=== PATIENT | female | born 1945 | race Caucasian/White ===

== ENCOUNTER → 2017-04-19 15:24 | Outpatient (CLI) | payer MEDICARE, OTHER, SELFPAY ==
--- NOTE | 2017-04-19 15:35 | RAD_ITS ---
STUDY: X-RAY - LUMBOSACRAL SPINE REASON FOR EXAM: Female, 71 years old. Low back pain TECHNIQUE: 8 view(s) of the lumbosacral spine were obtained. COMPARISON: None FINDINGS: Normal lumbar lordosis. There is a mild levoscoliosis. There is limited flexion and extension. Moderate degenerative changes of the vertebral bodies with mild spurring at the endplates. Slightly depressed superior endplate of L1. Narrowed disc space heights with vacuum phenomenon. Normal bilateral sacral ala, sacroiliac joints, and visualized sacrum. Normal visualized soft tissue structures. RAD/L/S Spine w Bend Min 6 Vw IMPRESSION: Degenerative changes and scoliosis of the lumbosacral spine. Electronically Signed: Bryan Gaona DO at 22:23 EST Tel [phone], Service support ,
== END ==
PROVIDERS: Family Provider Family Medicine Geriatric Medicine; PCP Family Medicine Geriatric Medicine; Visit Provider Family Medicine Geriatric Medicine
DX: M54.5 Low back pain (principal); M41.86 Other forms of scoliosis, lumbar region; M51.36 Other intervertebral disc degeneration, lumbar region
CPT/HCPCS: 72114

== ENCOUNTER → 2017-05-30 15:13 | Outpatient (CLI) | payer MEDICARE, OTHER, SELFPAY ==
--- NOTE | 2017-05-30 15:25 | BI_ITS ---
MAMMOGRAPHY - BILATERAL SCREENING REASON FOR EXAM: Female, 71 years old. Routine annual screening examination. PERTINENT HISTORY: Personal history of breast cancer. Prior left lumpectomy with radiation therapy. Sister with breast cancer. Pain at the lumpectomy site warm to touch. TECHNIQUE: Digital bilateral breast sushila (3D mammographic acquisition) in the CC and MLO projections. 2-D mediolateral oblique (MLO) and craniocaudad (CC) views of both breasts were obtained. CAD: Full Field Digital Mammography with Computer Added Detection was performed. COMPARISON: Comparison is made with prior examination dated January 17, 2015 and April 08, 2016. FINDINGS: Breast Composition: There are scattered areas of fibroglandular density. Once again, the patient is status post lumpectomy in the inferior deep portion of the left breast. There is evidence of postoperative architectural distortion and dystrophic calcifications at the lumpectomy site. At this time however, there appears to be increased density in the surrounding breast tissue at the lumpectomy site. With the patient's history of warmth and redness at that site, correlation with ultrasound is recommended to rule out possible infection. Surgical clips are also seen in the left axillary region. Stable appearance of the axillary lymph nodes. No other significant abnormalities are identified. BI/SCREENING MAMM (CAD), BILAT IMPRESSION: Status post left lumpectomy with resultant deformity of the breast and postoperative scarring. In the region of the lumpectomy site, there is increased markings within the surrounding breast tissue as described. Correlation with ultrasound is recommended. ASSESSMENT CATEGORY: BIRADS Category 0: Incomplete. Need additional imaging evaluation. A letter regarding these results will be sent to the patient by the facility within 30 days. Approximately 10% of breast cancers are not detected by mammography. A normal mammogram should not delay biopsy of a clinically suspicious abnormality. [id number] Electronically Signed: Elio Menard MD at 8:41 EDT Tel [phone], Service support ,
== END ==
PROVIDERS: Family Provider Family Medicine Geriatric Medicine; PCP Family Medicine Geriatric Medicine; Visit Provider Family Medicine Geriatric Medicine
DX: Z12.31 Encounter for screening mammogram for malignant neoplasm of breast (principal)
CPT/HCPCS: 77063; 77067

== ENCOUNTER → 2017-06-01 10:42 | Outpatient (CLI) | payer MEDICARE, OTHER, SELFPAY ==
--- NOTE | 2017-06-01 10:45 | US_ITS ---
STUDY: ULTRASOUND BREAST - LEFT REASON FOR EXAM: Female, 71 years old. Abnormal screening mammogram. Pain at the lumpectomy site. TECHNIQUE: Axial and longitudinal images of the LEFT breast were performed with a high resolution ultrasound transducer. COMPARISON: Comparison is made with prior mammogram dated May 30, 2017. FINDINGS: LEFT Breast: The inferior half of the breast was examined. There is a 2.5 cm x 2.8 cm x 2 cm heterogeneous soft tissue density at the lumpectomy site corresponding to the palpable abnormality. Adjacent to this, there is a 1.4 cm x 1.2 cm x 1 cm ill-defined nodular density. A biopsy is recommended for further evaluation. US/Breast Limited Unilateral IMPRESSION: Suspicious appearance of the lumpectomy site as well as a adjacent hypoechoic nodular region. Biopsy is recommended for further evaluation. ASSESSMENT CATEGORY: BIRADS Category 4: Suspicious - Biopsy Should Be Considered. A letter regarding these results will be sent to the patient by the facility within 30 days. Electronically Signed: Elio Menard MD at 14:29 EDT Tel [phone], Service support ,
== END ==
PROVIDERS: Family Provider Family Medicine Geriatric Medicine; PCP Family Medicine Geriatric Medicine; Visit Provider Family Medicine Geriatric Medicine
DX: N64.89 Other specified disorders of breast (principal)
CPT/HCPCS: 76642

== ENCOUNTER → 2017-06-18 09:45 | Outpatient (CLI) | payer MEDICARE, OTHER, SELFPAY ==
--- NOTE | 2017-06-18 09:45 | BRBX_PTH ---
PATIENT: IRLANDA LANDA LOC: [facility] U#:[id number] AGE/SX: 79/F ROOM: RE06/18/[address]: Dr. Pieter Alvarez MD : 1945 BED: DIS: SPEC #: [id number] RECD: 06/20/17 07:13 STATUS: BRIT GRACY #: [id number] PAULA: 06/18/17 09:[address]: Pieter Alvarez DEPT: SURGICAL PATHOLOGY RECD BY: Marcos Starkey ENTERED: 06/20/17 12:15 SP TYPE: BREAST BX OTHR DR: Dr. Jomar Tinajero MD Tissues: Breast, NOS Procedures: Surgery Specimen Level IV HEADER OPERATION: Left breast biopsy PRE-OP DIAGNOSIS: Left breast lump TISSUE SUBMITTED: Left breast tissue ISCHEMIC TIME: 1 minute FIXATION TIME: 57.5 hours MICROSCOPIC DIAGNOSIS Left breast tissue, core biopsy: Fragments of fibroadipose tissue with focal fat necrosis, chronic inflammation and dense fibrosis. Negative for atypia or malignancy. Breast tissue is not identified in the submitted specimen. 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 Clinical correlation and appropriate follow up are necessary. MICROSCOPIC DESCRIPTION Slides are reviewed. GROSS DESCRIPTION Received in fixative is one container labeled with the patient's name and designated left breast. The specimen consists of multiple elongated fragments of osuna-yellow fibroadipose tissue that in aggregate measure 1.5 x 0.6 x 0.1 cm. The entire specimen is submitted in one cassette. / SILVESTRE:franchesca 06/20/17 TC:5 CPT: 00041
== END ==
PROVIDERS: Family Provider Family Medicine Geriatric Medicine; PCP Family Medicine Geriatric Medicine; Visit Provider Surgery
DX: N63.0 Unspecified lump in unspecified breast (principal)
CPT/HCPCS: 88305

== ENCOUNTER → 2017-07-07 16:01 | Outpatient (CLI) | payer MEDICARE, OTHER, SELFPAY ==
[2017-07-07 16:54] LABS: Absolute Lymphocyte Count 1.87 X10^3/ul (0.83-4.51); Absolute Neutrophil Count 4.8 X10^3/uL (2.0-7.7); Basophil# 0.01 X10^3/uL; Basophil% 0.1 % (0-1); Eosinophil# 0.02 X10^3/uL; Eosinophils% 0.3 % (0-5); Hematocrit 39.4 % (37-47); Hemoglobin 12.5 g/dl (12.0-15.0); Lymphocyte # 1.87 X10^3/ul (4.0); Mean Corp Hgb Conc 31.7 g/gl (32-36); Mean Corpuscular Volume 91.4 fL (81-99); Mean Platelet Vol. 9.4 fl (6.2-12.0); Monocyte# 0.48 X10^3/uL; Monocyte% 6.7 % (0-10); Neutrophil # 4.81 X10^3/uL (2.7-7.7); Neutrophil % 66.8 % (47-70); POSITIVE COUNT NO; POSITIVE DIFFERENTIAL NO; POSITIVE MORPHOLOGY NO; Platelet Count 270 K/mm3 (150-450); RBC Distribution Width CV 13.6 % (11.6-14.6); RBC Distribution Width SD 45.1 fl (35.1-43.9); Red Blood Count 4.31 M/mm3 (4.2-5.4); White Blood Count 7.2 K/mm3 (4.4-11.0)
[2017-07-07 17:26] LABS: AST(SGOT) 15 U/L (15-37); Alanine Aminotransfer ALT/SGPT 20 U/L (13-56); Albumin, Serum 3.8 g/dL (3.2-5.0); Alkaline Phosphatase 90 U/L (45-117); Anion Gap 9 (5-15); BUN 21 mg/dL (7-18); BUN/Creat Ratio 26.7 RATIO (10-20); Calcium,Total 9.3 mg/dL (8.5-10.1); Chloride 102 mmol/L (98-107); Creatinine, Serum 0.79 mg/dL (0.55-1.02); EST Glomerular Filtration Rate 77 mL/min (>60); Est Glom Filt Rate - Afr Amer 93 mL/min (>60); Globulin 3.9 g/dL (2.2-4.2); Glucose 92 mg/dL (74-106); Potassium 3.4 mmol/L (3.5-5.1); Protein, Total 7.7 g/dL (6.4-8.2); Sodium Level 142 mmol/L (136-145); Thyroid Stim Hormone (TSH) 0.73 uIU/mL (0.358-3.74)
[2017-07-08 10:16] LABS: Vitamin D,25 Hydroxy 38.8 ng/mL (29.95-100.01)
[2017-07-11 10:04] LABS: Hep C Antibodies <0.1 s/co ratio (0.0-0.9)
== END ==
PROVIDERS: Family Provider Family Medicine Geriatric Medicine; PCP Family Medicine Geriatric Medicine; Visit Provider Family Medicine Geriatric Medicine
DX: Z13.89 Encounter for screening for other disorder (principal); E55.9 Vitamin D deficiency, unspecified; I10 Essential (primary) hypertension
CPT/HCPCS: 36415; 80053; 82306; 84443; 85025; 86803

== ENCOUNTER → 2017-07-08 10:04 | Outpatient (CLI) | payer MEDICARE, OTHER, SELFPAY | PROVIDERS: Family Provider Family Medicine Geriatric Medicine; PCP Family Medicine Geriatric Medicine; Visit Provider Family Medicine Geriatric Medicine | DX: N39.0 Urinary tract infection, site not specified (principal) | CPT/HCPCS: 87086; 87088 ==

== ENCOUNTER → 2017-08-02 16:29 | Outpatient (CLI) | payer MEDICARE, OTHER, SELFPAY ==
[2017-08-02 17:12] LABS: Erythrocyte Sedimentation Rate 25 mm/hr (0-30)
[2017-08-05 11:23] LABS: ANTINUCLEAR ANTIBODIES DIRECT Negative (Negative)
== END ==
PROVIDERS: Family Provider Family Medicine Geriatric Medicine; PCP Family Medicine Geriatric Medicine; Visit Provider Family Medicine Geriatric Medicine
DX: M10.9 Gout, unspecified (principal); M25.50 Pain in unspecified joint
CPT/HCPCS: 36415; 85652; 86038

== ENCOUNTER → 2017-08-25 16:46 | Outpatient (CLI) | payer MEDICARE, OTHER, SELFPAY ==
--- NOTE | 2017-08-25 16:50 | RAD_ITS ---
STUDY: X-RAY - LUMBAR SPINE REASON FOR EXAM: Female, 72 years old. Lower back pain. TECHNIQUE: 5 view(s) of the lumbar spine were obtained. COMPARISON: None FINDINGS: There is straightening of the normal lumbar lordosis. There is a minimal levoscoliosis with convexity at L2. There is a normal alignment of the vertebrae. There is multilevel endplate spondylosis of the lumbar vertebrae. There is multi-level degenerative disc disease with multi-level disc space narrowing. There is no evidence of acute fracture or loss of vertebral axial height. There is no demonstrated spondylolysis of the pars interarticulares. The soft tissue structures are unremarkable. RAD/L/S Spine Min 4 Views IMPRESSION: Degenerative changes of the spine, as detailed above. There is straightening of the lumbar lordosis. Electronically Signed: Doug Ortega DO at 23:08 EDT Tel [phone], Service support ,
== END ==
PROVIDERS: Family Provider Family Medicine Geriatric Medicine; PCP Family Medicine Geriatric Medicine; Visit Provider Nurse Practitioner Family
DX: M47.896 Other spondylosis, lumbar region (principal); M51.36 Other intervertebral disc degeneration, lumbar region; M48.061 Spinal stenosis, lumbar region without neurogenic claudication
CPT/HCPCS: 72110

== ENCOUNTER 2017-11-29 14:47 | Outpatient (RCR) | payer MEDICARE, OTHER, SELFPAY ==
--- NOTE | 2018-05-18 16:49 | HP.PT.NRP ---
HP - Discharge Summary (1) - Patient Information IRLANDA LANDA was seen in my office for initial evaluation on 11/29/17. The following Plan of Care was established for this patient: Initial Frequency: 2x /Week Initial Duration: 4 Weeks - Anticipated Interventions Patient/Client Instruction: Educate patient on: Benefits of Fitness Program For the Purpose of:: To improve nutrient delivery to tissue Therapeutic Exercise to Include: Strength training, Power training, Endurance training, Balance training, Coordination, Body mechanics, Flexibilty training, Gait and locomotor training, In an aquatic setting, Active ROM, Dynamic Lumbar Stabilization For the Purpose of:: To decrease pain, To increase ROM, To improve muscle performance and motor function, To improve ability to perform ADL's, To increase tolerance to activity/condition/position, To improve performance and independence with ADL's, To improve gait and locomotor functions, To improve endurance, To improve balance, To improve safety with gait Cryotherapy (ice pack, ice massage): Yes Thermo therapy (hot pack): Yes For the Purpose of:: To decrease pain This patient was last seen in our office . Pertinent comments regarding their Physical therapy will appear below: Patient has not attended PT in over 3 months and is appropriate for d/c at this time. Return to MD for further evaluation. At this point I will be discontinuing this patient from physical therapy. I would be happy to see this patient again in the future if found appropriate by the physician. Thank you! YULI LlamasT
== END 2017-11-29 19:00 | disposition home or self-care (01) ==
LOC: PT 14:47
PROVIDERS: Family Provider Internal Medicine; PCP Internal Medicine; Referring Provider Anesthesiology Pain Medicine; Visit Provider Anesthesiology Pain Medicine
DX: M54.9 Dorsalgia, unspecified (principal)
CPT/HCPCS: 97162

== ENCOUNTER → 2017-12-05 13:28 | Outpatient (CLI) | payer MEDICARE, OTHER, SELFPAY ==
--- NOTE | 2017-12-05 13:30 | US_ITS ---
STUDY: ULTRASOUND BREAST - LEFT REASON FOR EXAM: Female, 72 years old. Status post left lumpectomy with abnormal mammographic findings. TECHNIQUE: Axial and longitudinal images of the LEFT breast were performed with a high resolution ultrasound transducer. COMPARISON: Comparison is made with prior mammogram done earlier today and prior ultrasound of the left breast dated June 01, 2017. FINDINGS: LEFT Breast: The inferior half of the left breast was examined by ultrasound. There is a 2.8 cm x 2.7 cm x 2.5 cm heterogeneous soft tissue density at the 6:00 position of the breast at 3 cm from nipple. This corresponds to the mammographic abnormality. This is essentially unchanged. At the 8:00 position in the breast at 6 on the some nipple, there is a 1.3 cm Bard 1.1 cm x 0.8 cm hypoechoic density with posterior acoustical shadowing. A biopsy is recommended for further evaluation. This is unchanged. US/Breast Limited Unilateral IMPRESSION: Stable sonographic examination as compared to prior study. A biopsy is recommended for further evaluation. ASSESSMENT CATEGORY: BIRADS Category 4: Suspicious - Biopsy Should Be Considered. A letter regarding these results will be sent to the patient by the facility within 30 days. Electronically Signed: Elio Menard MD at 9:07 EDT Tel [phone], Service support ,
--- NOTE | 2017-12-05 13:41 | BI_ITS ---
MAMMOGRAPHY - UNILATERAL DIAGNOSTIC: LEFT BREAST REASON FOR EXAM: Female, 72 years old. Prior left lumpectomy and left stereotactic breast biopsy. Pain and palpable abnormality and warm to touch at the lumpectomy site. PERTINENT HISTORY: Personal history of breast cancer. TECHNIQUE: Digital unilateral breast sushila (3D mammographic acquisition) in the CC and MLO projections. 2-D mediolateral oblique (MLO) and craniocaudad (CC) views of both breasts were obtained. CAD: Full Field Digital Mammography with Computer Added Detection was performed. COMPARISON: Comparison is made with prior study dated May 30, 2017 and April 08, 2016. FINDINGS: Breast Composition: There are scattered areas of fibroglandular density. Once again, there is a 3.1 cm x 1.7 cm spiculated density in the deep inferior portion of the left breast. No calcifications are seen within it most likely representing suture calcifications. Tissue clip marker is also seen along the anterior aspect of this soft tissue density. There has been essentially no change since prior study. No other significant abnormalities are identified. There has been no significant change since the prior study. BI/DIAG MAMM W/CAD, UNILAT IMPRESSION: Stable unilateral diagnostic mammogram. Correlation with ultrasound of the left breast is recommended for further evaluation. ASSESSMENT CATEGORY: BIRADS Category 0: Incomplete. Need additional imaging evaluation. A letter regarding these results will be sent to the patient by the facility within 30 days. Approximately 10% of breast cancers are not detected by mammography. A normal mammogram should not delay biopsy of a clinically suspicious abnormality. Electronically Signed: Elio Menard MD at 12:08 EDT Tel [phone], Service support ,
== END ==
PROVIDERS: Family Provider Internal Medicine; PCP Internal Medicine; Visit Provider Surgery
DX: N63.20 Unspecified lump in the left breast, unspecified quadrant (principal); Z85.3 Personal history of malignant neoplasm of breast
CPT/HCPCS: 76642; 77061; 77065; G0279

== ENCOUNTER → 2017-12-24 10:30 | Outpatient (CLI) | payer MEDICARE, OTHER, SELFPAY ==
--- NOTE | 2017-12-24 | BRBX_PTH ---
PATIENT: IRLANDA LANDA LOC: [facility] U#:[id number] AGE/SX: 79/F ROOM: RE12/24/[address]: Dr. Pieter Alvarez MD : 1945 BED: DIS: SPEC #: [id number] RECD: 12/26/17 14:43 STATUS: BRIT GRACY #: [id number] PAULA: 12/24/17 00:[address]: Pieter Alvarez DEPT: SURGICAL PATHOLOGY RECD BY: Jeffrey Mcnamara ENTERED: 12/26/17 14:44 SP TYPE: BREAST BX OTHR DR: Dr. Radha Velarde MD Tissues: Left breast, NOS Procedures: Surgery Specimen Level IV HEADER OPERATION: Left breast biopsy PRE-OP DIAGNOSIS: Abnormal breast US, left TISSUE SUBMITTED: Left breast tissue ISCHEMIC TIME: 1 minute FIXATION TIME: 8 hours MICROSCOPIC DIAGNOSIS Left breast, core biopsy: Fragments of adipose tissue with focal dense fibrosis. Negative for malignancy. Breast tissue is not identified in the submitted specimen. SILVESTRE:brittany 12/27/17 COMMENT Correlation with clinical, radiologic findings and appropriate follow up are necessary. 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 MICROSCOPIC DESCRIPTION Slides are reviewed. GROSS DESCRIPTION Received is one container labeled with the patient name and designated left breast. The specimen consists of multiple elongated fragments of osuna-yellow fibroadipose tissue that in aggregate measure 2 x 0.5 x 0.1 cm. The specimen is totally submitted in one cassette. / SILVESTRE:brittany 12/26/17 TC: 5 CPT:14772
== END ==
PROVIDERS: Family Provider Internal Medicine; PCP Internal Medicine; Referring Provider Surgery; Visit Provider Surgery
DX: R92.8 Other abnormal and inconclusive findings on diagnostic imaging of breast (principal)
CPT/HCPCS: 88305

== ENCOUNTER → 2018-06-16 13:50 | Outpatient (CLI) | payer MEDICARE, OTHER, SELFPAY ==
--- NOTE | 2018-06-16 13:55 | BI_ITS ---
MAMMOGRAPHY - BILATERAL DIAGNOSTIC REASON FOR EXAM: Female, 72 years old. Left lumpectomy in 2001 with radiation and tamoxifen therapy. PERTINENT HISTORY: Personal history of breast malignancy. TECHNIQUE: Digital examination. Mediolateral oblique (MLO) and craniocaudad (CC) views of both breasts were obtained. CAD: CAD was performed on this study. COMPARISON: April 08, 2016. FINDINGS: Breast Composition: There are scattered areas of fibroglandular density. The patient is status post deep central left lumpectomy and left axillary geno dissection. There is incompletely imaged dense focal asymmetry within the central deep left breast with associated architectural distortion, biopsy clips and dystrophic appearing calcifications. These findings appear stable when considering differences in technique and most likely represent fibrosis/scarring from prior surgery and therapy. However, the deep extent of these findings is not identified on either the current or comparison images. Recommend further evaluation with limited and directed pre and post contrast anterior chest CT to the determine and evaluate the deep extent of the presumed scar and to evaluate for active soft tissue and osseous anterior chest wall involvement. The right breast appears without evidence of malignancy. BI/Bilat Brst Izaiah Stand Alone IMPRESSION: Negative stable diagnostic mammogram. ASSESSMENT CATEGORY: BIRADS Category 0: Incomplete. Need additional imaging evaluation. A letter regarding these results will be sent to the patient by the facility within 30 days. FOLLOW UP RECOMMENDATION: Additional Views are Recommended. (E) Approximately 10% of breast cancers are not detected by mammography. A normal mammogram should not delay biopsy of a clinically suspicious abnormality. Recommendation: The deep extent of the presumed postsurgical and posttherapy scar in the left breast is not identified on either the current or comparison images. Recommend further evaluation with limited and directed pre and post contrast anterior chest CT to the determine and evaluate the deep extent of the presumed scar and to evaluate for active soft tissue and osseous anterior chest wall involvement. Electronically Signed: Judson Romero MD at 7:51 EDT , Service support ,
--- NOTE | 2018-06-16 13:55 | BI_ITS ---
MAMMOGRAPHY - BILATERAL DIAGNOSTIC REASON FOR EXAM: Female, 72 years old. Left lumpectomy in 2001 with radiation and tamoxifen therapy. PERTINENT HISTORY: Personal history of breast malignancy. TECHNIQUE: Digital examination. Mediolateral oblique (MLO) and craniocaudad (CC) views of both breasts were obtained. CAD: CAD was performed on this study. COMPARISON: April 08, 2016. FINDINGS: Breast Composition: There are scattered areas of fibroglandular density. The patient is status post deep central left lumpectomy and left axillary geno dissection. There is incompletely imaged dense focal asymmetry within the central deep left breast with associated architectural distortion, biopsy clips and dystrophic appearing calcifications. These findings appear stable when considering differences in technique and most likely represent fibrosis/scarring from prior surgery and therapy. However, the deep extent of these findings is not identified on either the current or comparison images. Recommend further evaluation with limited and directed pre and post contrast anterior chest CT to the determine and evaluate the deep extent of the presumed scar and to evaluate for active soft tissue and osseous anterior chest wall involvement. The right breast appears without evidence of malignancy. BI/DIAG MAMM W/CAD, BILAT IMPRESSION: Negative stable diagnostic mammogram. ASSESSMENT CATEGORY: BIRADS Category 0: Incomplete. Need additional imaging evaluation. A letter regarding these results will be sent to the patient by the facility within 30 days. FOLLOW UP RECOMMENDATION: Additional Views are Recommended. (E) Approximately 10% of breast cancers are not detected by mammography. A normal mammogram should not delay biopsy of a clinically suspicious abnormality. Recommendation: The deep extent of the presumed postsurgical and posttherapy scar in the left breast is not identified on either the current or comparison images. Recommend further evaluation with limited and directed pre and post contrast anterior chest CT to the determine and evaluate the deep extent of the presumed scar and to evaluate for active soft tissue and osseous anterior chest wall involvement. Electronically Signed: Judson Romero MD at 7:51 EDT , Service support ,
== END ==
PROVIDERS: Family Provider Internal Medicine; PCP Internal Medicine; Referring Provider Surgery; Visit Provider Surgery
DX: R92.8 Other abnormal and inconclusive findings on diagnostic imaging of breast (principal); Z85.3 Personal history of malignant neoplasm of breast
CPT/HCPCS: 77062; 77066; G0279

== ENCOUNTER → 2018-07-07 16:52 | Outpatient (CLI) | payer MEDICARE, OTHER, SELFPAY ==
[2018-06-27 14:28] VITALS: BMI 33.7
--- NOTE | 2018-07-07 16:55 | CT_ITS ---
STUDY: CT CHEST WITH CONTRAST REASON FOR EXAM: Female, 72 years old. History of left breast cancer RADIATION DOSAGE (If Supplied By Facility): CTDIvol = ( 13.76 ) mGy, DLP = ( 711.38 ) mGycm TECHNIQUE: Transaxial imaging was performed following intravenous administration of 100 IV Isovue 300. Multiplanar coronal and sagittal images were reformatted. Individualized dose optimization techniques were used for this CT. COMPARISON: 04/05/2016 FINDINGS: Similar operative changes of the left breast as compared to the prior study. There is an oval-shaped nodule of the deep left breast abutting the anterior chest wall musculature. The nodule measures 2.1 x 1.5 cm that is stable when directly compared and measured in a similar fashion as on the prior CTA chest. There are eccentric wall calcifications and surgical clips. Noncalcified nodule in the right middle lobe on image 87 measures 3 mm and is stable since the prior study. Mild atelectasis along the dependent portions of the bilateral lower lobes. No new pulmonary nodule. There is no demonstrated pleural abnormality. Normal heart and pericardium. No soft tissue adenopathy in the mediastinum or rachel. No axillary adenopathy. Normal enhanced pulmonary arteries. There is atherosclerotic calcification of the aortic arch with tortuosity and elongation of the aortic arch and descending thoracic aorta. There are multi-level degenerative changes of the thoracic spine. There are gallstones in the dependent portion of the gallbladder. CT/Chest WITH Contrast IMPRESSION: 1. Stable 3 mm nodule in the right middle lobe. 2. 2.1 x 1.5 cm low-density nodule of the deep left breast abutting the anterior chest wall musculature is stable since prior CTA chest of 04/05/2016. Favor sequela of prior surgery/radiation therapy rather than neoplasm. 3. Cholelithiasis. Electronically Signed: Mark Cadet MD at 17:40 EDT , Service support ,
[2018-07-07 17:10] LABS: CREATININE FINGERSTICK 0.8 mg/dL (0.55-1.02)
== END ==
PROVIDERS: Family Provider Internal Medicine; PCP Internal Medicine; Referring Provider Surgery; Visit Provider Surgery
DX: R92.8 Other abnormal and inconclusive findings on diagnostic imaging of breast (principal); Z85.3 Personal history of malignant neoplasm of breast; Z98.890 Other specified postprocedural states
CPT/HCPCS: 71260; Q9967

== ENCOUNTER → 2018-09-15 14:33 | Outpatient (CLI) | payer MEDICARE, OTHER, SELFPAY ==
[2018-06-27 14:28] VITALS: BMI 33.7
[2018-09-15 15:07] LABS: Absolute Lymphocyte Count 2.05 X10^3/uL (0.83-4.51); Absolute Neutrophil Count 5.4 X10^3/uL (2.0-7.7); Basophil# 0.02 X10^3/uL; Basophil% 0.3 % (0-1); Eosinophil# 0.06 X10^3/uL; Eosinophils% 0.8 % (0-5); Lymphocyte # 2.05 X10^3/ul (4.0); Lymphocyte % 25.7 % (19-41); Mean Corp Hgb Conc 32.5 g/dL (32-36); Mean Corpuscular Hgb 29.3 pg (27.0-32.0); Mean Corpuscular Volume 90.3 fL (81-99); Mean Platelet Vol. 9.9 fl (6.2-12.0); Monocyte# 0.43 X10^3/uL; Monocyte% 5.4 % (0-10); NRBC Flagged by Analyzer 0 % (0-5); Neutrophil # 5.38 X10^3/uL (2.7-7.7); Neutrophil % 67.4 % (47-70); Platelet Count 260 K/mm3 (150-450); RBC Distribution Width CV 14.1 % (11.6-14.6); RBC Distribution Width SD 46.6 fl (35.1-43.9); Red Blood Count 4.43 M/mm3 (4.2-5.4)
[2018-09-15 15:15] LABS: Glucose, Dipstick Normal (Normal); Ketone-Dipstick Negative (Negative); Leukocyte Esterase-Dipstick 25 /ul (Negative); Nitrite-Dipstick Negative (Negative); Occult Blood-Urine Negative /ul (Negative); Protein-Dipstick Negative (Negative); Urine Bilirubin Dipstick Negative (Negative); Urine Urobilinogen Normal (Normal)
[2018-09-15 15:18] LABS: Color, Urine YELLOW (Yellow); Urine Clarity Clear (Clear)
[2018-09-15 15:28] LABS: Protein, Urine (Random) 11.1 mg/dL (<11.9); Protein:Creat Ratio 78 mg/g CRE (0-200)
[2018-09-15 15:32] LABS: Erythrocyte Sedimentation Rate 31 mm/hr (0-30)
[2018-09-15 15:40] LABS: EXAGEN MAILED SPECIMEN
[2018-09-15 15:40] LABS: ALB/GLOB Ratio 0.9 RATIO (0.9-2.4); AST(SGOT) 13 U/L (15-37); Alanine Aminotransfer ALT/SGPT 29 U/L (13-56); Albumin, Serum 3.8 g/dL (3.2-5.0); Alkaline Phosphatase 106 U/L (45-117); Anion Gap 7 (5-15); BUN 22 mg/dL (7-18); BUN/Creat Ratio 32.1 RATIO (10-20); Calcium,Total 9.6 mg/dL (8.5-10.1); Chloride 106 mmol/L (98-107); Creatinine, Serum 0.69 mg/dL (0.55-1.02); EST Glomerular Filtration Rate 90 mL/min (>60); Est Glom Filt Rate - Afr Amer 108 mL/min (>60); Globulin 4.3 g/dL (2.2-4.2); Glucose 99 mg/dL (74-106); Potassium 3.6 mmol/L (3.5-5.1); Protein, Total 8.1 g/dL (6.4-8.2); Sodium Level 143 mmol/L (136-145)
[2018-09-16 14:27] LABS: Hepatitis B Surface Antibody Non-Reactive; Hepatitis B Surface Antigen Non-Reactive (Nonreactive); Hepatitis C Antibody Non-Reactive (Nonreactive)
== END ==
PROVIDERS: Family Provider Internal Medicine; PCP Internal Medicine; Referring Provider Internal Medicine Rheumatology; Visit Provider Internal Medicine Rheumatology
DX: M06.4 Inflammatory polyarthropathy (principal); M79.7 Fibromyalgia; L94.8 Other specified localized connective tissue disorders; M35.00 Sjogren syndrome, unspecified; M18.0 Bilateral primary osteoarthritis of first carpometacarpal joints; M17.0 Bilateral primary osteoarthritis of knee; Z79.899 Other long term (current) drug therapy
CPT/HCPCS: 36415; 80053; 81002; 82570; 84156; 85025; 85652; 86140; 86706; 86803; 87340

== ENCOUNTER 2018-10-03 09:26 | Day surgery (SDC) | payer MEDICARE, OTHER, SELFPAY ==
--- NOTE | 2018-09-18 04:14 | HP_ITS ---
Intake Vital Signs 09/18/18 Body Mass Index (BMI) 33.7 Intake Visit Reasons: Discuss Gall Bladder Surgery Chief Complaint: left breast biopsy Allergies grass pollen Allergy (Verified 06/27/18 14:29) Unknown amoxicillin [Amoxicillin] Adverse Reaction (Verified 06/27/18 14:29) Other nifedipine [From Procardia] Adverse Reaction (Verified 06/27/18 14:29) Rash sulfamethoxazole [From Bactrim] Adverse Reaction (Verified 06/27/18 14:29) Other trimethoprim [From Bactrim] Adverse Reaction (Verified 06/27/18 14:29) Other [facility] Medical History (Updated 09/18/18 @ 16:11 by Pieter Alvarez MD) Personal history of colonic polyps (Acute) Cholelithiasis with chronic cholecystitis (Chronic) Abnormal mammogram of left breast (Acute) History of breast cancer (Chronic) History of DVT (deep vein thrombosis) (Chronic) GERD (gastroesophageal reflux disease) (Chronic) ROSEANNE (obstructive sleep apnea) (Chronic) Surgical History (Updated 06/18/17 @ 09:01 by Lauren Gavin) Status post left breast biopsy (Acute) Status post left breast lumpectomy (Acute) Family History (Updated 06/10/17 @ 14:29 by Luaren Gavin) Mother CAD (coronary artery disease) Sister Breast cancer Hypertension Father CAD (coronary artery disease) Social History (Updated 09/18/18 @ 16:14 by Pieter Alvarez MD) Smoking Status: Never smoker second hand exposure: No alcohol intake: never substance use type: does not use caffeine: Yes what type of physical activity do you participate in: none frequency: does not exercise HPI HPI HPI: IRLANDA LANDA, is a 73 F who presents to the office today for HPI HPI Surgical H&P: Yes HPI: IRLANDA LANDA, is a 73 F who presents to the office today for surgical consultation regarding a recent CT scan of the chest that was performed to evaluate a previous history of left breast cancer. Incidental findings included a right pulmonary 3 and 100 nodule that was stable for 2 years. She had gallstones identified. The left breast finding was felt to be unchanged from a study 2 years prior. The patient goes on to describe that her previous colonoscopy November 03, 2012 with surveillance because of a personal history of adenoma. That procedure was performed by Dr. Gonzalez with recommendations for follow-up at 5 years. The patient at that point had 100 mg of Demerol and 5 mg of Versed. She states that she was quite uncomfortable during that procedure. The sigmoid colon was noted to be moderately tortuous. The patient does have chronic abdominal pain. She has chronic low abdominal crampy pain. Recently she has had some postprandial nausea. The only surgery on her abdomen was a remote appendectomy. It is difficult to decipher the degree of her nausea and abdominal pain as far as etiology to particular process. [facility] Imaging Services [address] [place] [address] Chest WITH Contrast MR#: [id number]:[id number] Name: IRLANDA LANDA [facility] #:[id number] : 1945F 72 From: Mark Cadet MD PCP:Radha Velarde MD Status:REG CLI Study:Chest WITH Contrast Date of Exam:07/07/18 Exam#[id number] Ordering Dr: Pieter Alvarez MD STUDY: CT CHEST WITH CONTRAST REASON FOR EXAM: Female, 72 years old. History of left breast cancer RADIATION DOSAGE (If Supplied By Facility): CTDIvol = ( 13.76 ) mGy, DLP = ( 711.38 ) mGycm TECHNIQUE: Transaxial imaging was performed following intravenous administration of 100 IV Isovue 300. Multiplanar coronal and sagittal images were reformatted. Individualized dose optimization techniques were used for this CT. COMPARISON: 04/05/2016 FINDINGS: Similar operative changes of the left breast as compared to the prior study. There is an oval-shaped nodule of the deep left breast abutting the anterior chest wall musculature. The nodule measures 2.1 x 1.5 cm that is stable when directly compared and measured in a similar fashion as on the prior CTA chest. There are eccentric wall calcifications and surgical clips. Noncalcified nodule in the right middle lobe on image 87 measures 3 mm and is stable since the prior study. Mild atelectasis along the dependent portions of the bilateral lower lobes. No new pulmonary nodule. There is no demonstrated pleural abnormality. Normal heart and pericardium. No soft tissue adenopathy in the mediastinum or rachel. No axillary adenopathy. Normal enhanced pulmonary arteries. There is atherosclerotic calcification of the aortic arch with tortuosity and elongation of the aortic arch and descending thoracic aorta. There are multi-level degenerative changes of the thoracic spine. There are gallstones in the dependent portion of the gallbladder. CT/Chest WITH Contrast IMPRESSION: 1. Stable 3 mm nodule in the right middle lobe. 2. 2.1 x 1.5 cm low-density nodule of the deep left breast abutting the anterior chest wall musculature is stable since prior CTA chest of 04/05/2016. Favor sequela of prior surgery/radiation therapy rather than neoplasm. 3. Cholelithiasis. Electronically Signed: Mark Cadet MD at 17:40 EDT , Service support , CC: Radha Velarde MD; Pieter Alvarez MD ~ Career Services Director: Signed Exam Const General: cooperative, healthy appearing, comfortable Nutritional Appearance: obese Orientation: alert, awake HENMT Head: normal to inspection Eyes General: appearance normal, both eyes and all related structures Resp Effort & Inspection: normal respiratory effort Auscultation: clear to auscultation bilaterally Cardio Rate: regular rate Rhythm: regular rhythm GI Palpation: soft, no hepatosplenomegaly Auscultation: normal bowel sounds Other: Difficult to examine secondary to body habitus Musc Cervical Spine: normal cervical lordosis Neuro Cognition: normal cognition Extrem General: no calf tenderness bilaterally Psych Affect: normal affect Assessment & Plan Problems 1. Abnormal mammogram of left breast R92.8 2. Calculus of gallbladder with chronic cholecystitis without obstruction K80.10 3. Personal history of colonic polyps Z86.010 Plan The patient would like to pursue a colonoscopy based upon her personal history of colon polyps. I have discussed the technique, benefit, risk and alternatives. Because of her discomfort with previous procedures I anticipate proceeding with monitored anesthesia care. She has had an opportunity to ask and have questions answered. Which we will schedule and proceed at her discretion. Regarding the patient's left breast cancer. The requested CT of the breast from radiology appear to be unchanged from 2 years prior. The patient will pursue her routine imaging. It is difficult to decipher the patient's abdominal crampy pain and nausea. She is interested in scheduling for a laparoscopic cholecystectomy with selective cholangiograms. She states that she knows no less than 3 people who underwent a complicated emergency surgery for gallbladder disease and would like to try to avoid that. We will schedule and proceed at her discretion. She is also aware of the technique, benefit, risks, alternatives. I appreciate the ongoing opportunity of assisting with her surgical care CC: Dr. Syd Alvarez M.D., F.A.C.S. Coding Level of Care Code Off vis,est,level 4 Diagnoses Abnormal mammogram of left breast R92.8 Calculus of gallbladder with chronic cholecystitis without obstruction K80.10 ??Cholelithiasis location: gallbladder ??Biliary obstruction: without biliary obstruction Personal history of colonic polyps Z86.010 09/18/18 2953 <Electronically signed by Pieter lozoya MD> Date _ Pieter Alvarez MD I have re-examined the patient. There are no clinical changes since date of exam.
[2018-09-18 16:09] VITALS: BMI 33.7
[2018-10-03 09:52] VITALS: BP 141/80; PULSE 73; RESP 16; TEMP 36.8; O2SAT 95; BMI 38.9
[2018-10-03] MEDS: Lactated Ringers 1,000 ML 100 ML IV (10:06)
--- NOTE | 2018-10-03 10:30 | COLBX_PTH ---
PATIENT: IRLANDA LANDA LOC: EN U#:[id number] AGE/SX: 73/F ROOM: RE10/03/[address]: Dr. Pieter Alvarez MD : 1945 BED: DIS: 10/03/2018 SPEC #: [id number] RECD: 10/03/18 11:37 STATUS: BRIT REGreg #: [id number] PAULA: 10/03/18 10:[address]: Pieter Alvarez DEPT: SURGICAL PATHOLOGY RECD BY: Jason Rodríguez ENTERED: 10/03/18 12:30 SP TYPE: COLON BX OTHR DR: Dr. Radha Velarde MD Tissues: COLON BIOPSY Procedures: Surgery Specimen Level IV HEADER OPERATION: Colonoscopy (MAC) PRE-OP DIAGNOSIS: Personal history colon polyps TISSUE SUBMITTED: Hepatic flexure biopsy MICROSCOPIC DIAGNOSIS Hepatic flexure, biopsy: A fragment of colonic mucosa, no pathologic diagnosis. SJ:franchesca 10/04/18 MICROSCOPIC DESCRIPTION Slides are reviewed. GROSS DESCRIPTION Received in fixative is one container labeled with the patient's name and designated hepatic flexure biopsy. The specimen consists of one irregular fragment of light osuna soft tissue that measures 0.2 x 0.2 x 0.1 cm. The specimen is totally submitted in one cassette. / SJ:rg 10/03/18 TC:5 CPT: 65627
--- NOTE | 2018-10-03 11:22 | OP.ENDO_ITS ---
10/03/2018 Radha Velarde [address] [id number] Re : Colonoscopy procedure for Irene Bosch Dear Dr. Velarde This procedure was performed on Wednesday, October 03, 2018. My impressions and recommendations are as follows: Impressions : - Hemorrhoids found on perianal exam. - One 4 mm polyp at the hepatic flexure, removed with a cold biopsy forceps. Resected and retrieved. - Diverticulosis in the sigmoid colon and in the descending colon. - The examination was otherwise normal. Recommendations : - Discharge patient to home. - Resume previous diet. - Continue present medications. - Telephone my office for pathology results in 1 week. - Repeat colonoscopy in 5 years for surveillance based on pathology results. My findings are described in the full procedure note, which is enclosed. If I can be of further assistance, please feel free to contact me at Doctor phone number(s): Work: . Sincerely, Pieter Alvarez MD 10/03/2018 11:22:16 AM This report has been signed electronically.
[2018-10-03 11:25] VITALS: BP 141/80; BP 99/48; PULSE 65; RESP 16; TEMP 36.4; O2SAT 96
[2018-10-03 11:30] VITALS: BP 112/48; BP 141/80; PULSE 61; RESP 16; O2SAT 97
[2018-10-03 11:35] VITALS: BP 141/80; BP 150/56; PULSE 68; RESP 16; O2SAT 97
[2018-10-03 11:40] VITALS: BP 129/66; BP 141/80; PULSE 58; RESP 16; TEMP 36.4; O2SAT 100
[2018-10-03 12:13] VITALS: BP 141/80
== END 2018-10-03 12:14 | disposition home or self-care (01) ==
LOC: EN 09:27 → AC 09:28
PROVIDERS: Family Provider Internal Medicine; PCP Internal Medicine; Referring Provider Internal Medicine; Visit Provider Surgery
PROC: 0DJD8ZZ Inspection of Lower Intestinal Tract, Via Natural or Artificial Opening Endoscopic (ICD-10-PCS; CPT 45378; principal; 2018-10-03 10:25)
DX: D12.3 Benign neoplasm of transverse colon (principal); K64.9 Unspecified hemorrhoids; K57.30 Diverticulosis of large intestine without perforation or abscess without bleeding; Z86.010 Personal history of colon polyps; K80.10 Calculus of gallbladder with chronic cholecystitis without obstruction; K58.9 Irritable bowel syndrome, unspecified; K21.9 Gastro-esophageal reflux disease without esophagitis; I10 Essential (primary) hypertension; E78.00 Pure hypercholesterolemia, unspecified; F32.9 Major depressive disorder, single episode, unspecified; F41.9 Anxiety disorder, unspecified; M35.00 Sjogren syndrome, unspecified; M79.7 Fibromyalgia; G25.81 Restless legs syndrome; E06.9 Thyroiditis, unspecified; E66.9 Obesity, unspecified; Z68.33 Body mass index [BMI] 33.0-33.9, adult; R92.8 Other abnormal and inconclusive findings on diagnostic imaging of breast; Z79.899 Other long term (current) drug therapy
CPT/HCPCS: 45380; 88305; J7120

== ENCOUNTER 2018-11-03 05:21 | Day surgery (SDC) | payer MEDICARE, OTHER, SELFPAY ==
[2018-09-18 16:09] VITALS: BMI 33.7
--- NOTE | 2018-10-11 14:15 | HP_ITS ---
Intake Vital Signs 09/18/18 Body Mass Index (BMI) 33.7 Intake Visit Reasons: Discuss Gall Bladder Surgery Chief Complaint: left breast biopsy Allergies grass pollen Allergy (Verified 06/27/18 14:29) Unknown amoxicillin [Amoxicillin] Adverse Reaction (Verified 06/27/18 14:29) Other nifedipine [From Procardia] Adverse Reaction (Verified 06/27/18 14:29) Rash sulfamethoxazole [From Bactrim] Adverse Reaction (Verified 06/27/18 14:29) Other trimethoprim [From Bactrim] Adverse Reaction (Verified 06/27/18 14:29) Other [facility] Medical History (Updated 09/18/18 @ 16:11 by Pieter Alvarez MD) Personal history of colonic polyps (Acute) Cholelithiasis with chronic cholecystitis (Chronic) Abnormal mammogram of left breast (Acute) History of breast cancer (Chronic) History of DVT (deep vein thrombosis) (Chronic) GERD (gastroesophageal reflux disease) (Chronic) ROSEANNE (obstructive sleep apnea) (Chronic) Surgical History (Updated 06/18/17 @ 09:01 by Lauren Gavin) Status post left breast biopsy (Acute) Status post left breast lumpectomy (Acute) Family History (Updated 06/10/17 @ 14:29 by Lauren Gavin) Mother CAD (coronary artery disease) Sister Breast cancer Hypertension Father CAD (coronary artery disease) Social History (Updated 09/18/18 @ 16:14 by Pieter Alvarez MD) Smoking Status: Never smoker second hand exposure: No alcohol intake: never substance use type: does not use caffeine: Yes what type of physical activity do you participate in: none frequency: does not exercise HPI HPI HPI: IRLANDA LANDA, is a 73 F who presents to the office today for HPI HPI Surgical H&P: Yes HPI: IRLANDA LANDA, is a 73 F who presents to the office today for surgical consultation regarding a recent CT scan of the chest that was performed to evaluate a previous history of left breast cancer. Incidental findings included a right pulmonary 3 and 100 nodule that was stable for 2 years. She had gallstones identified. The left breast finding was felt to be unchanged from a study 2 years prior. The patient goes on to describe that her previous colonoscopy November 03, 2012 with surveillance because of a personal history of adenoma. That procedure was performed by Dr. Gonzalez with recommendations for follow-up at 5 years. The patient at that point had 100 mg of Demerol and 5 mg of Versed. She states that she was quite uncomfortable during that procedure. The sigmoid colon was noted to be moderately tortuous. The patient does have chronic abdominal pain. She has chronic low abdominal crampy pain. Recently she has had some postprandial nausea. The only surgery on her abdomen was a remote appendectomy. It is difficult to decipher the degree of her nausea and abdominal pain as far as etiology to particular process. [facility] Imaging Services [address] [place] [address] Chest WITH Contrast MR#: [id number]:[id number] Name: IRLANDA LANDA [facility] #:[id number] : 1945F 72 From: Mark Cadet MD PCP:Radha Velarde MD Status:REG CLI Study:Chest WITH Contrast Date of Exam:07/07/18 Exam#[id number] Ordering Dr: Pieter Alvarez MD STUDY: CT CHEST WITH CONTRAST REASON FOR EXAM: Female, 72 years old. History of left breast cancer RADIATION DOSAGE (If Supplied By Facility): CTDIvol = ( 13.76 ) mGy, DLP = ( 711.38 ) mGycm TECHNIQUE: Transaxial imaging was performed following intravenous administration of 100 IV Isovue 300. Multiplanar coronal and sagittal images were reformatted. Individualized dose optimization techniques were used for this CT. COMPARISON: 04/05/2016 FINDINGS: Similar operative changes of the left breast as compared to the prior study. There is an oval-shaped nodule of the deep left breast abutting the anterior chest wall musculature. The nodule measures 2.1 x 1.5 cm that is stable when directly compared and measured in a similar fashion as on the prior CTA chest. There are eccentric wall calcifications and surgical clips. Noncalcified nodule in the right middle lobe on image 87 measures 3 mm and is stable since the prior study. Mild atelectasis along the dependent portions of the bilateral lower lobes. No new pulmonary nodule. There is no demonstrated pleural abnormality. Normal heart and pericardium. No soft tissue adenopathy in the mediastinum or rachel. No axillary adenopathy. Normal enhanced pulmonary arteries. There is atherosclerotic calcification of the aortic arch with tortuosity and elongation of the aortic arch and descending thoracic aorta. There are multi-level degenerative changes of the thoracic spine. There are gallstones in the dependent portion of the gallbladder. CT/Chest WITH Contrast IMPRESSION: 1. Stable 3 mm nodule in the right middle lobe. 2. 2.1 x 1.5 cm low-density nodule of the deep left breast abutting the anterior chest wall musculature is stable since prior CTA chest of 04/05/2016. Favor sequela of prior surgery/radiation therapy rather than neoplasm. 3. Cholelithiasis. Electronically Signed: Mark Cadet MD at 17:40 EDT , Service support , CC: Radha Velarde MD; Pieter Alvarez MD ~ Internship: Signed Exam Const General: cooperative, healthy appearing, comfortable Nutritional Appearance: obese Orientation: alert, awake HENMT Head: normal to inspection Eyes General: appearance normal, both eyes and all related structures Resp Effort & Inspection: normal respiratory effort Auscultation: clear to auscultation bilaterally Cardio Rate: regular rate Rhythm: regular rhythm GI Palpation: soft, no hepatosplenomegaly Auscultation: normal bowel sounds Other: Difficult to examine secondary to body habitus Musc Cervical Spine: normal cervical lordosis Neuro Cognition: normal cognition Extrem General: no calf tenderness bilaterally Psych Affect: normal affect Assessment & Plan Problems 1. Abnormal mammogram of left breast R92.8 2. Calculus of gallbladder with chronic cholecystitis without obstruction K80.10 3. Personal history of colonic polyps Z86.010 Plan The patient would like to pursue a colonoscopy based upon her personal history of colon polyps. I have discussed the technique, benefit, risk and alternatives. Because of her discomfort with previous procedures I anticipate proceeding with monitored anesthesia care. She has had an opportunity to ask and have questions answered. Which we will schedule and proceed at her discretion. Regarding the patient's left breast cancer. The requested CT of the breast from radiology appear to be unchanged from 2 years prior. The patient will pursue her routine imaging. It is difficult to decipher the patient's abdominal crampy pain and nausea. She is interested in scheduling for a laparoscopic cholecystectomy with selective cholangiograms. She states that she knows no less than 3 people who underwent a complicated emergency surgery for gallbladder disease and would like to try to avoid that. We will schedule and proceed at her discretion. She is also aware of the technique, benefit, risks, alternatives. I appreciate the ongoing opportunity of assisting with her surgical care CC: Dr. Syd Alvarez M.D., F.A.C.S. Coding Level of Care Code Off vis,est,level 4 Diagnoses Abnormal mammogram of left breast R92.8 Calculus of gallbladder with chronic cholecystitis without obstruction K80.10 ??Cholelithiasis location: gallbladder ??Biliary obstruction: without biliary obstruction Personal history of colonic polyps Z86.010 I have re-examined the patient. There are no clinical changes since date of exam.
[2018-10-30 13:07] VITALS: BMI 38.9
--- NOTE | 2018-10-30 14:06 | EKG12_ITS ---
Test Reason : PRE OP Blood Pressure : / mmHG Vent. Rate : 067 BPM Atrial Rate : 067 BPM P-R Int : 188 ms QRS Dur : 090 ms QT Int : 410 ms P-R-T Axes : 048 -10 054 degrees QTc Int : 433 ms Normal sinus rhythm Normal ECG Confirmed by BRITANY PADRON, LOTTIE ([id number]), story editor GABRIELA ESCOTO ([id number]) on 10/31/2018 11:41:21 AM Referred By: Pieter Alvarez Confirmed By:LOTTIE GARG MD
[2018-10-30 15:08] LABS: Hematocrit 40.3 % (37-47); Hemoglobin 12.9 g/dL (12.0-15.0); Mean Corpuscular Hgb 29.6 pg (27.0-32.0); Mean Corpuscular Volume 92.4 fL (81-99); Platelet Count 269 K/mm3 (150-450); RBC Distribution Width SD 46.5 fl (35.1-43.9); Red Blood Count 4.36 M/mm3 (4.2-5.4); White Blood Count 7.2 K/mm3 (4.4-11.0)
[2018-10-30 15:43] LABS: Anion Gap 3 (5-15); BUN 19 mg/dL (7-18); BUN/Creat Ratio 26.4 RATIO (10-20); Calcium,Total 9.5 mg/dL (8.5-10.1); Chloride 105 mmol/L (98-107); Creatinine, Serum 0.72 mg/dL (0.55-1.02); EST Glomerular Filtration Rate 85 mL/min (>60); Est Glom Filt Rate - Afr Amer 102 mL/min (>60); Glucose 101 mg/dL (74-106); Potassium 3.9 mmol/L (3.5-5.1); Sodium Level 139 mmol/L (136-145); Thyroid Stim Hormone (TSH) 0.08 uIU/mL (0.358-3.74)
[2018-11-03] VITALS (11 sets, daily range): BP systolic 127–167; BP diastolic 60–79; PULSE 52–79; RESP 16–18; TEMP 36.2–37.1; O2SAT 92–100; BMI 40.4
--- NOTE | 2018-11-03 05:46 | PCM.DC.GS ---
Discharge Diet: Light diet - advance as tolerated - if you have questions about your diet instructions, please talk to you doctor. Discharge Activity: May Not Drive - for 3-5 days or while taking narcotic pain medicine. May shower in (days): 1 Lifting Restrictions: 10 pounds Call your doctor if your incision/area has: Continuous Slow Oozing, Sudden Increased Bleeding, Increased Pain/ Swelling, Increased Redness, Foul Smelling Discharge Call your doctor if you observe: Fever of 101 or Higher Suture Line Care: Avoid Pulling/Pushing, Avoid Pinching/Bending Additional Dressing/Incision Instructions:: Change or remove dressing in 4 days. Leave steri-strips in place for 1 week. Allergies/Adverse Reactions: Allergies grass pollen Allergy (Verified 10/30/18 13:06) Unknown amoxicillin [Amoxicillin] Adverse Reaction (Verified 10/30/18 13:06) Other Thrush nifedipine [From Procardia] Adverse Reaction (Verified 10/30/18 13:06) Rash sulfamethoxazole [From Bactrim] Adverse Reaction (Verified 10/30/18 13:06) Other Yeast infection trimethoprim [From Bactrim] Adverse Reaction (Verified 10/30/18 13:06) Other Medications to take at Discharge RX: ALPRAZolam [Xanax] 0.25 - 0.5 mg PO DAILY PRN 01/03/15 RX: Hydrochlorothiazide [Hctz] 25 mg PO DAILY 01/03/15 atorvastatin 40 mg tablet 40 mg PO QHS 06/10/17 famotidine 40 mg tablet 40 mg PO QHS 06/10/17 levothyroxine 175 mcg tablet 175 mcg PO QDAY 06/10/17 sertraline 25 mg tablet 25 mg PO DAILY 06/27/18 Celecoxib [Celebrex] 200 mg PO DAILY 10/02/18 CycloSPORINE Ophthalmic [Restasis Ophthalmic] 1 drp EACH EYE BID PRN 10/02/18 Mirtazapine [Remeron] 15 mg PO QHS 10/02/18 Nebivolol HCl [Bystolic] 10 mg PO DAILY 10/02/18 RX: Folic Acid 1 mg PO DAILY 10/27/18 RX: Methotrexate 12.5 mg PO Q7D 10/27/18 RX: Prednisone 10 mg PO DAILY PRN 10/27/18 Orders to be completed after discharge: 12 Lead EKG [CVS] Time Frame: 10/27/18, Facility: [facility], Location: Cardiovascular Services Basic Metabolic Profile (BMP) Time Frame: 10/27/18, Facility: [facility], Location: Laboratory CBC-Complete Blood Cnt No Diff Time Frame: 10/27/18, Facility: [facility], Location: Laboratory Primary Care Physician: Radha Velarde MD [Primary Care Provider] - Test Results: Test results from this visit will be discussed in further detail at your follow-up appointment, if applicable. Please Follow Up With: Pieter Alvarez MD - [phone] When: Call to make an appointment to be seen in about 10 days.
[2018-11-03] MEDS: Lactated Ringers 1,000 ML 100 ML IV (06:09)
[2018-11-03] MEDS: Hydrocortisone Sod Succinate 100 MG/2 ML Vial IV (07:10)
--- NOTE | 2018-11-03 07:15 | RAD_ITS ---
STUDY: INTRAOPERATIVE CHOLANGIOGRAM. REASON FOR EXAM: Female, 73 years old. Laparoscopic cholecystectomy. FLUOROSCOPY TIME (if supplied): (0:31) minutes/seconds TECHNIQUE: Intraoperative cholangiogram was performed by the surgeon. Imaging was submitted. COMPARISON: None. FINDINGS: The common bile duct is not dilated. No intraluminal filling defect is seen. There is opacification of the left intrahepatic biliary ducts. RAD/Cholangiogram/ O R,Initial IMPRESSION: Unremarkable examination. Electronically Signed: Elio Menard, at 14:06 EDT , Service support ,
--- NOTE | 2018-11-03 07:15 | GALL_PTH ---
PATIENT: IRLANDA LANDA LOC: [facility] [place] U[place][id number] AGE/SX: 73/F ROOM: RE11/03/[address]: Dr. Pieter Alvarez MD : 1945 BED: DIS: 11/03/2018 SPEC #: [id number] RECD: 11/03/18 09:28 STATUS: BRIT GRACY #: [id number] PAULA: 11/03/18 07:[address]: Pieter Alvarez DEPT: SURGICAL PATHOLOGY RECD BY: Jason Rodríguez ENTERED: 11/03/18 12:58 SP TYPE: NOAM GRIFFIN DR: MD Dr. Radha Adler MD Tissues: A - Gallbladder, NOS B - Liver, NOS Procedures: PAS with Diastase (control) Trichrome (control) Special Stain Group II PAS Stain (control) Surgery Specimen Level III Surgery Specimen Level V Retic (control) Iron Stain (control) HEADER OPERATION: Laparoscopic cholecystectomy with IOC PRE-OP DIAGNOSIS: Calculus of gallbladder with chronic cholecystitis without obstruction K80.10 TISSUE SUBMITTED: A - Gallbladder, B - Liver biopsy MICROSCOPIC DIAGNOSIS A. Gallbladder, cholecystectomy: Chronic cholecystitis and cholelithiasis. A pericystic lymph node with reactive changes. B. Liver, core biopsy: Liver parenchymal tissue with focal mild macro- and microvesicular steatosis and mild portal chronic inflammation. See microscopic description and comment. SJ:franchesca 11/06/18 COMMENT Correlation with clinical findings and appropriate follow up are necessary. MICROSCOPIC DESCRIPTION Slides are reviewed. B. The specimen shows liver parenchymal tissue with preserved lobular architecture. The hepatocytes show focal mild macro- and microvesicular steatosis and reactive changes. Significant lobular inflammation is not seen. The portal area show mild portal chronic inflammation. Piecemeal necrosis is not seen. Iron stain shows absent iron. Reticulin and trichrome stains are unremarkable. PAS stain with and without diastase do not show any abnormal accumulation of protein. All stains are performed with appropriate matched controls. GROSS DESCRIPTION A - Received is one container labeled with the patient's name and designated gallbladder. The specimen consists of a gallbladder measuring 6.5 x 3 x 2 cm. The external surface is smooth and glistening. Focally, it is granular, hemorrhagic and contains cautery artifact. The lumen of the gallbladder contains yellow-green mucoid bile and one black calculus measuring 5 mm. The mucosa is bile-stained and without any mass lesions. The gallbladder wall averages 0.2 cm in thickness and is free of mass lesions. Finance Specialist sections of the gallbladder and the cystic duct are submitted in one cassette. B - Received in fixative is one container labeled with the patient's name and designated liver biopsy. The specimen consists of an elongated core of light osuna soft tissue measuring 1.5 cm in length and 0.1 cm in average diameter. The specimen is submitted its entirety in one cassette. / AM:franchesca 11/03/18 TC:3 CPT: 72682, 20746, 14345 x5
[2018-11-03] MEDS: Bupivacaine Mpf 0.5% 30 ML VIAL (08:29)
--- NOTE | 2018-11-03 08:30 | OP.PCM_ITS ---
Problem List (1) Cholelithiasis with chronic cholecystitis Status: Chronic Qualifiers: Cholelithiasis location: gallbladder Biliary obstruction: without biliary obstruction Qualified Code(s): K80.10 - Calculus of gallbladder with chronic cholecystitis without obstruction Report of Operation Date of Procedure: 11/03/18 Pre-Operative Diagnosis: Chronic cholecystitis cholelithiasis Post-Operative Diagnosis: Chronic cholecystitis cholelithiasis. Suspected abnormal cholangiogram. Possible hepatitis/cirrhosis Surgery/Procedure Performed:: Laparoscopic cholecystectomy with cholangiography. Ramirez-Cut needle core right lobe liver biopsy Description of Surgical Findings:: Timeout and informed consent was obtained. 73-year-old female was taken out from placement table underwent general endotracheal intubation anesthesia. Clindamycin 900 mg are given intravenously preoperatively. The abdomen sterile ly prepped and draped. 0.5% Marcaine was used as a local anesthetic. Throughout the procedure a total 30 cc was used. A vertical infraumbilical incision was created holding sutures of 0 Vicryl placed varies needle inserted saline drop test performed the abdomen was insufflated CO2 to pressure of 10 to smoker pressure. Kelsi trocar inserted. 10 lap scope inserted. No ventral trocar injuries. 5-minute trochars were placed in the epigastric mid abdomen right upper quadrant. The gallbladder was distracted blunt dissection instituted the infundibulum until clearly the cystic duct cystic artery identified. Circumferential dissection performed the hepatocystic angle fully visualized. Hemo-lock clips were placed for hemostasis were indicated. Hemo- lock clip was placed on the cystic duct incision in the cystic duct and through a 14-gauge Angiocath clench Emiliano catheter was inserted. Fluoroscopically control claims grams were obtained. There appeared to be a very generous if not even enlarged common bile duct there was flow into the small bowel the intrahepatic ducts however appeared to be very diminutive. I removed the cholangiogram catheter placed 2 hemo-lock clips on the cystic duct stump prior to transecting it. The cystic artery was secured with a hemo-lock clip proximally prior to transecting it with electrocautery. The gallbladder was dissected free from the liver bed. The liver was noted to be quite heavy and it appeared to be congested. There was some bleeding from the liver bed which had to be treated with electrocautery and then with 2 pieces of snow and then additionally with FloSeal. Because of the abnormality of the appearance of the liver the abnormality cholangiogram I did a needle core biopsy of the right lobe of the liver. Upon withdrawing that needle there was pulsatile blood from the liver. That was treated successfully with electrocautery. The core was immediately submitted in formalin for analysis. The right upper quadrant was irrigated next aspirated free. The course site in the liver bed area carefully inspected multiple times prior to completing the procedure. The gallbladder had been placed in a retrieval bag it was easily exited at the umbilicus. One final inspection of the liver bed area was performed it was hemostatic. No drains were placed. The the abdomen was allowed to deflate of the CO2. The fascia at the umbilicus approximate interrupted 0 Vicryl [id number] suture. Skin edges approximate interrupted 4 Monocryl subdermal stitches. Steri-Strips Telfa and OpSite dressings applied. Sponge and instrument and needle counts were reported the surgeon be correct. Specimens gallbladder and right lobe needle core biopsy. Drains none. Blood loss 20 cc. Pieter Alvarez M.D., F.A.C.S. Type of Anesthesia:: General Anesthesiologist: Jonathan Still
[2018-11-03] MEDS: HYDROcodone Bitartrate/Apap 5/325 Tablet PO (10:35)
[2018-11-03] MEDS: Ipratropium/Albuterol Sulfate 3 ML AMPUL.NEB INHALATION (11:10)
== END 2018-11-03 12:02 | disposition home or self-care (01) ==
LOC: SDC 05:22 → AC 05:22
PROVIDERS: Anesthesiology; Family Provider Internal Medicine; PCP Internal Medicine; Referring Provider Surgery; Visit Provider Surgery
PROC: (CPT 47610; principal; 2018-11-03 06:55)
DX: K80.10 Calculus of gallbladder with chronic cholecystitis without obstruction (principal); K76.0 Fatty (change of) liver, not elsewhere classified; K75.9 Inflammatory liver disease, unspecified; K21.9 Gastro-esophageal reflux disease without esophagitis; I10 Essential (primary) hypertension; E78.00 Pure hypercholesterolemia, unspecified; F32.9 Major depressive disorder, single episode, unspecified; F41.9 Anxiety disorder, unspecified; M35.00 Sjogren syndrome, unspecified; G25.81 Restless legs syndrome; E06.9 Thyroiditis, unspecified; E66.9 Obesity, unspecified; Z68.33 Body mass index [BMI] 33.0-33.9, adult; Z86.010 Personal history of colon polyps; Z79.899 Other long term (current) drug therapy
CPT/HCPCS: 00790; 47563; 49321; 36415; 74300; 76000; 80048; 84443; 85027; 88304; 88307; 88313; 93005; J7120; J2405

== ENCOUNTER → 2018-11-09 16:37 | Outpatient (CLI) | payer MEDICARE, OTHER, SELFPAY ==
[2018-11-03 05:48] VITALS: BMI 40.4
--- NOTE | 2018-11-09 17:00 | RAD_ITS ---
STUDY: X-RAY CHEST REASON FOR EXAM: Female, 73 years old. Shortness of breath TECHNIQUE: PA and lateral views of the chest COMPARISON: X-Ray Chest April 05, 2016 FINDINGS: The lungs are clear. There are no pleural effusions. There is no pneumothorax. The heart is normal in size. The visualized osseous structures are within normal limits. RAD/Chest PA and Lateral IMPRESSION: No acute thoracic pathology. Electronically Signed: Wilfred Trejo, at 17:30 EDT Tel , Service support ,
== END ==
PROVIDERS: Family Provider Internal Medicine; PCP Internal Medicine; Referring Provider Physician Assistant; Visit Provider Physician Assistant
DX: R06.02 Shortness of breath (principal)
CPT/HCPCS: 71046

== ENCOUNTER → 2018-11-28 11:27 | Outpatient (CLI) | payer MEDICARE, OTHER, SELFPAY ==
[2018-11-03 05:48] VITALS: BMI 40.4
[2018-11-28 13:46] LABS: Absolute Lymphocyte Count 2.79 X10^3/uL (0.83-4.51); Absolute Neutrophil Count 4.7 X10^3/uL (2.0-7.7); Basophil# 0.03 X10^3/uL; Basophil% 0.4 % (0-1); Eosinophil# 0.16 X10^3/uL; Hematocrit 40.5 % (37-47); Hemoglobin 12.5 g/dL (12.0-15.0); Lymphocyte # 2.79 X10^3/ul (4.0); Lymphocyte % 34.2 % (19-41); Mean Corp Hgb Conc 30.9 g/dL (32-36); Mean Corpuscular Volume 90.8 fL (81-99); Mean Platelet Vol. 9.9 fl (6.2-12.0); Monocyte# 0.49 X10^3/uL; NRBC Flagged by Analyzer 0 % (0-5); Neutrophil # 4.65 X10^3/uL (2.7-7.7); Platelet Count 278 K/mm3 (150-450); RBC Distribution Width CV 14.2 % (11.6-14.6); RBC Distribution Width SD 46.8 fl (35.1-43.9); Red Blood Count 4.46 M/mm3 (4.2-5.4); White Blood Count 8.2 K/mm3 (4.4-11.0)
[2018-11-28 13:58] LABS: ALB/GLOB Ratio 0.9 RATIO (0.9-2.4); AST(SGOT) 21 U/L (15-37); Alanine Aminotransfer ALT/SGPT 29 U/L (13-56); Albumin, Serum 3.6 g/dL (3.2-5.0); Alkaline Phosphatase 111 U/L (45-117); Anion Gap 4 (5-15); BUN 21 mg/dL (7-18); BUN/Creat Ratio 28.2 RATIO (10-20); Calcium,Total 9.1 mg/dL (8.5-10.1); Chloride 107 mmol/L (98-107); Creatinine, Serum 0.75 mg/dL (0.55-1.02); EST Glomerular Filtration Rate 81 mL/min (>60); Est Glom Filt Rate - Afr Amer 98 mL/min (>60); Globulin 4.2 g/dL (2.2-4.2); Glucose 119 mg/dL (74-106); Potassium 3.9 mmol/L (3.5-5.1); Protein, Total 7.8 g/dL (6.4-8.2); Sodium Level 142 mmol/L (136-145)
== END ==
PROVIDERS: Family Provider Internal Medicine; PCP Internal Medicine; Referring Provider Internal Medicine Rheumatology; Visit Provider Internal Medicine Rheumatology
DX: M06.4 Inflammatory polyarthropathy (principal); M79.7 Fibromyalgia; M35.00 Sjogren syndrome, unspecified; M18.0 Bilateral primary osteoarthritis of first carpometacarpal joints; M17.0 Bilateral primary osteoarthritis of knee; Z79.899 Other long term (current) drug therapy
CPT/HCPCS: 36415; 80053; 85025

== ENCOUNTER 2019-01-30 00:31 | Emergency (ER) | payer MEDICARE, OTHER, SELFPAY ==
[2018-11-03 05:48] VITALS: BMI 40.4
[2019-01-30 00:32] VITALS: BP 180/83; PULSE 82; RESP 16; TEMP 36.1; O2SAT 96; BMI 41.2
--- NOTE | 2019-01-30 00:48 | ED.DCSUM_ITS ---
History of Present Illness Chief Complaint: Complaint Narrative: Patient is a 73-year-old female who presents with suprapubic pain and hematuria. She first noticed some suprapubic pain and pressure beginning about 2 to 3 days ago as well as hematuria. She also complains of dysuria and frequency. She does report a history of prior similar symptoms with previous UTIs. She reports mild nausea without vomiting. No diarrhea. No flank or back pain. She is not on any anticoagulation. Past Medical History - Allergies and Home Meds Allergies/Adverse Reactions: Allergies grass pollen Allergy (Verified 01/30/19 00:35) Unknown amoxicillin [Amoxicillin] Adverse Reaction (Verified 01/30/19 00:35) Other Thrush nifedipine [From Procardia] Adverse Reaction (Verified 01/30/19 00:35) Rash sulfamethoxazole [From Bactrim] Adverse Reaction (Verified 01/30/19 00:35) Other Yeast infection trimethoprim [From Bactrim] Adverse Reaction (Verified 01/30/19 00:35) Other Primary Care Physician: Radha Velarde MD [Primary Care Provider] - Past Medical History: - - Fibromyalgia, Sjogren's disease, Vivienne's thyroiditis Surgical History: - - breast bx, ankle fracture Smoking Status: Never smoker - Family History Maternal Family History: Family History (Last Reviewed 11/15/18 @ 14:12 by Tayler Urrutia) Mother CAD (coronary artery disease) Sister Breast cancer Hypertension Father CAD (coronary artery disease) Family History: Reports: - - mother with congenital heart disease. pulmonary fibrosis. Paternal Family History: Family History (Last Reviewed 11/15/18 @ 14:12 by Tayler Urrutia) Mother CAD (coronary artery disease) Sister Breast cancer Hypertension Father CAD (coronary artery disease) Family History: Reports: - - father suddenly Review of Systems All systems negative except as indicated General: Denies: Fever Cardiovascular: Denies: Chest pain Respiratory: Denies: Dyspnea Gastrointestinal: Reports: Abdominal pain, Nausea. Denies: Vomiting, Diarrhea Genitourinary: Reports: Dysuria, Hematuria, Frequency Musculoskeletal: Denies: Myalgias, Arthralgias Skin: Denies: Rash Neurological: Denies: Headache Physical Exam Vital Signs/Narrative: Vital Signs Temp Pulse Resp BP Pulse Ox 01/30/19 00:32 96.9 F L 82 16 180/83 H 96 Inital Vital Signs reviewed: Yes General: Well nourished Head: Normocephalic Eyes: EOMI ENT: Moist mucous membranes Neck: Supple Cardiovascular: Regular rate, Regular rhythm Respiratory: No distress, CTA bilaterally Abdomen: Soft, Nontender, Nondistended, Normal bowel sounds Skin: Normal color Neurological: Alert Psychological: Normal affect Diagnostic/Tx/Re-eval Laboratory Results 01/30/19 00:45 Urine Color Brown Urine Clarity Turbid Urine pH 6.5 Ur Specific [place] 1.025 Urine Protein 500 H Urine Glucose (UA) Normal Urine Ketones Negative Urine Occult Blood 250 H Urine Nitrite Positive H Urine Bilirubin 6 H Urine Urobilinogen 8 H Ur Leukocyte Esterase 25 H Urine RBC > 100 SEEN Urine WBC 50-100 SEEN Ur Squamous Epith Cells 0-5 SEEN Ur Transition Epith Cell 0-5 SEEN Urine Bacteria 0 SEEN Urine Mucus 0 SEEN - Medical Decision Making Urinalysis is consistent with cystitis. Patient has allergies to Bactrim and penicillins will treat with Macrobid. Patient was given first dose here. She was advised to follow-up with her primary care physician. She does understand return for worsening symptoms. ED Disposition - Plan for ED Patient: Disposition: Home or Assisted Living Diagnosis: Cystitis Instructions: Bladder Infection, Female (Adult) Prescriptions: Nitrofurantoin Macrocrystals [Macrobid] 100 mg PO Q12 #14 cap Prescription Printed Referrals: Radha Velarde MD [Primary Care Provider] -
[2019-01-30 00:54] LABS: Bacteria 0 SEEN /hpf (None Seen); Color, Urine Brown (Yellow); Glucose, Dipstick Normal (Normal); Ketone-Dipstick Negative (Negative); Leukocyte Esterase-Dipstick 25 /ul (Negative); Mucous, Urine 0 SEEN /hpf (<or=2+); Nitrite-Dipstick Positive (Negative); Occult Blood-Urine 250 /ul (Negative); Protein-Dipstick 500 mg/dl (Negative); Specific Gravity, Urine 1.025 (1.002-1.030); Urine Clarity Turbid (Clear); Urine Urobilinogen 8 mg/dl (Normal); Urine pH 6.5 (5.0 - 8.0)
[2019-01-30 00:56] LABS: Urine Bilirubin Dipstick 6 mg/dL (Negative)
[2019-01-30 01:03] LABS: Red Blood Cells-Urine > 100 SEEN /hpf (0-5); Transitional Epithelial - Ur 0-5 SEEN /hpf (0-5); White Blood Cells 50-100 SEEN /hpf (0-5)
[2019-01-30 01:04] LABS: Squamous Epithelial Cells - UA 0-5 SEEN /hpf (5-10)
[2019-01-30] MEDS: Nitrofurantoin Macrocrystals 100 MG Capsule PO (01:13)
== END 2019-01-30 01:16 | disposition home or self-care (01) ==
LOC: ED 01:15
PROVIDERS: Emergency Provider Emergency Medicine; Family Provider Internal Medicine; PCP Internal Medicine
DX: N30.91 Cystitis, unspecified with hematuria (principal); R11.0 Nausea; M35.00 Sjogren syndrome, unspecified; E06.3 Autoimmune thyroiditis; M79.7 Fibromyalgia; Z79.899 Other long term (current) drug therapy; Z88.2 Allergy status to sulfonamides; Z88.1 Allergy status to other antibiotic agents; Z88.0 Allergy status to penicillin; Z88.3 Allergy status to other anti-infective agents
CPT/HCPCS: 81001; 87086; 87088; 87186; 99283

== ENCOUNTER → 2019-02-27 15:28 | Outpatient (CLI) | payer MEDICARE, OTHER, SELFPAY ==
[2019-01-30 00:32] VITALS: BMI 41.2
[2019-02-27 18:07] LABS: Absolute Lymphocyte Count 1.13 X10^3/uL (0.83-4.51); Absolute Neutrophil Count 6.9 X10^3/uL (2.0-7.7); Basophil# 0.01 X10^3/uL; Basophil% 0.1 % (0-1); Eosinophil# 0.06 X10^3/uL; Eosinophils% 0.7 % (0-5); Hematocrit 41.6 % (37-47); Hemoglobin 12.9 g/dL (12.0-15.0); Lymphocyte # 1.13 X10^3/ul (4.0); Lymphocyte % 13.2 % (19-41); Mean Corpuscular Hgb 28.5 pg (27.0-32.0); Mean Platelet Vol. 10.4 fl (6.2-12.0); Monocyte# 0.42 X10^3/uL; Monocyte% 4.9 % (0-10); NRBC Flagged by Analyzer 0 % (0-5); Neutrophil % 80.7 % (47-70); Platelet Count 304 K/mm3 (150-450); RBC Distribution Width CV 15.5 % (11.6-14.6); RBC Distribution Width SD 52.7 fl (35.1-43.9); Red Blood Count 4.52 M/mm3 (4.2-5.4); White Blood Count 8.6 K/mm3 (4.4-11.0)
[2019-02-27 18:28] LABS: ALB/GLOB Ratio 0.8 RATIO (0.9-2.4); AST(SGOT) 21 U/L (15-37); Alanine Aminotransfer ALT/SGPT 32 U/L (13-56); Albumin, Serum 3.7 g/dL (3.2-5.0); Alkaline Phosphatase 97 U/L (45-117); Anion Gap 6 (5-15); BUN 22 mg/dL (7-18); BUN/Creat Ratio 22.2 RATIO (10-20); Calcium,Total 9.8 mg/dL (8.5-10.1); Chloride 106 mmol/L (98-107); Creatinine, Serum 0.99 mg/dL (0.55-1.02); EST Glomerular Filtration Rate 59 mL/min (>60); Est Glom Filt Rate - Afr Amer 71 mL/min (>60); Globulin 4.4 g/dL (2.2-4.2); Glucose 135 mg/dL (74-106); Potassium 3.9 mmol/L (3.5-5.1); Protein, Total 8.1 g/dL (6.4-8.2); Sodium Level 139 mmol/L (136-145)
== END ==
PROVIDERS: Family Provider Internal Medicine; PCP Internal Medicine; Referring Provider Internal Medicine Rheumatology; Visit Provider Internal Medicine Rheumatology
DX: M06.4 Inflammatory polyarthropathy (principal); M79.7 Fibromyalgia; M35.00 Sjogren syndrome, unspecified; M18.0 Bilateral primary osteoarthritis of first carpometacarpal joints; M17.0 Bilateral primary osteoarthritis of knee; K21.9 Gastro-esophageal reflux disease without esophagitis; Z79.899 Other long term (current) drug therapy
CPT/HCPCS: 36415; 80053; 85025

== ENCOUNTER → 2019-07-17 15:36 | Outpatient (CLI) | payer MEDICARE, OTHER, SELFPAY ==
--- NOTE | 2019-07-17 15:37 | BI_ITS ---
MAMMOGRAPHY - BILATERAL SCREENING REASON FOR EXAM: Female, 73 years old. Routine annual screening examination. PERTINENT HISTORY: Personal history of breast cancer. Prior right lumpectomy. Consistent with breast cancer. TECHNIQUE: Digital bilateral breast josi (3D mammographic acquisition) in the CC and MLO projections. 2-D mediolateral oblique (MLO) and craniocaudad (CC) views of both breasts were obtained. CAD: Full Field Digital Mammography with Computer Added Detection was performed. COMPARISON: Comparison is made with prior study dated June 16, 2018 and May 30, 2017. FINDINGS: Breast Composition: There are scattered areas of fibroglandular density. There are no dominant masses or suspicious calcifications. The patient is status post lumpectomy in the deep inferior aspect of the left breast with resultant postoperative calcification and architectural distortion. Surgical clips are also seen in the left axillary region. No other significant abnormalities are identified. There has been no significant change since the prior study. BI/SCREEN MAMM (CAD) W/JOSI BILAT IMPRESSION: Stable bilateral screening mammogram. Yearly follow-up mammogram recommended. (A) ASSESSMENT CATEGORY: BIRADS Category 2: Benign. A letter regarding these results will be sent to the patient by the facility within 30 days. Approximately 10% of breast cancers are not detected by mammography. A normal mammogram should not delay biopsy of a clinically suspicious abnormality. [id number] Electronically Signed: Elio Menard, at 9:18 EDT , Service support ,
== END ==
PROVIDERS: PCP Internal Medicine; Referring Provider Surgery; Visit Provider Surgery
DX: Z12.31 Encounter for screening mammogram for malignant neoplasm of breast (principal)
CPT/HCPCS: 77063; 77067

== ENCOUNTER → 2019-09-06 17:45 | Outpatient (CLI) | payer MEDICARE, OTHER, SELFPAY ==
--- NOTE | 2019-09-06 17:55 | RAD_ITS ---
STUDY: X-RAY - LUMBAR SPINE REASON FOR EXAM: Female, 74 years old. Low back pain. TECHNIQUE: 3 view(s) of the lumbar spine were obtained. COMPARISON: 08-25-17. FINDINGS: There is reversal of the normal lumbar lordosis. Minimal levoscoliosis There is a normal alignment of the vertebrae. There is diffuse demineralization with multi-level endplate spondylosis. There is multi-level degenerative disc disease with multi-level disc space narrowing. There is no evidence of acute fracture or loss of vertebral axial height. The soft tissue structures are unremarkable. RAD/Lumbar Spine 2 or 3 Views IMPRESSION: Degenerative changes of the spine, as detailed above. No major interval change. Electronically Signed: Doug Ortega DO at 21:57 EDT Tel [phone], Service support ,
--- NOTE | 2019-09-06 17:55 | RAD_ITS ---
STUDY: X-RAY - CERVICAL SPINE REASON FOR EXAM: Female, 74 years old. Neck pain. TECHNIQUE: 4 view(s) of the cervical spine were obtained. COMPARISON: None FINDINGS: There are degenerative changes of the anterior atlantoaxial articulation. Normal odontoid process. Normal cervical lordosis. There is multi-level endplate spondylosis. There is multi-level degenerative disc disease with multilevel disc space narrowing. There is no evidence of acute fracture or loss of vertebral axial height. There is minimal retrolisthesis of C4 on C5 without subluxation. There is otherwise preserved. The soft tissue structures are unremarkable. RAD/Cerv Spine 2 or 3 Views IMPRESSION: Degenerative changes of the cervical spine. Electronically Signed: Doug Ortega DO at 21:59 EDT Tel [phone], Service support ,
== END ==
PROVIDERS: PCP Internal Medicine; Visit Provider Anesthesiology Pain Medicine
DX: M54.9 Dorsalgia, unspecified (principal); M54.2 Cervicalgia
CPT/HCPCS: 72040; 72100

== ENCOUNTER → 2020-08-21 16:22 | Outpatient (CLI) | payer MEDICARE, OTHER, SELFPAY ==
--- NOTE | 2020-08-21 16:24 | BI_ITS ---
MAMMOGRAPHY - BILATERAL SCREENING REASON FOR EXAM: Female, 75 years old. Routine annual screening examination. PERTINENT HISTORY: Personal history of breast cancer. Sister with breast cancer. TECHNIQUE: Digital bilateral breast josi (3D mammographic acquisition) in the CC and MLO projections. 2-D mediolateral oblique (MLO) and craniocaudad (CC) views of both breasts were obtained. CAD: Full Field Digital Mammography with Computer Added Detection was performed. COMPARISON: Comparison is made with prior examination dated 07/17/2019 and 06/16/2018. FINDINGS: Breast Composition: There are scattered areas of fibroglandular density. There are no dominant masses or suspicious calcifications. The patient is status post lumpectomy of the deep inferior aspect of the left breast with resultant postoperative scarring in the skin thickening. The left breast is once again smaller than the right breast. Surgical clips are also seen in the left axillary region. Stable appearance of the small lymph nodes in the right axillary region. No other significant abnormalities are identified. There has been no significant change since the prior study. BI/SCRN MAMM (CAD)W/JOSI BILAT IMPRESSION: Stable bilateral screening mammogram. Yearly follow-up mammogram recommended. (A) ASSESSMENT CATEGORY: BIRADS Category 2: Benign. A letter regarding these results will be sent to the patient by the facility within 30 days. Approximately 10% of breast cancers are not detected by mammography. A normal mammogram should not delay biopsy of a clinically suspicious abnormality. [id number] Electronically Signed: Elio Menard MD at 8:16 EDT , Service support ,
== END ==
PROVIDERS: PCP Internal Medicine; Referring Provider Surgery; Visit Provider Surgery
DX: Z12.31 Encounter for screening mammogram for malignant neoplasm of breast (principal)
CPT/HCPCS: 77063; 77067

== ENCOUNTER → 2020-09-10 16:03 | Outpatient (CLI) | payer MEDICARE, OTHER, SELFPAY ==
[2020-09-10 17:07] LABS: EXAGEN MAILED SPECIMEN
[2020-09-10 17:41] LABS: Absolute Lymphocyte Count 1.79 X10^3/uL (0.83-4.51); Absolute Neutrophil Count 4.2 X10^3/uL (2.0-7.7); Basophil# 0.02 X10^3/uL; Basophil% 0.3 % (0-1); Eosinophil# 0.11 X10^3/uL; Eosinophils% 1.7 % (0-5); Hematocrit 39.9 % (37-47); Hemoglobin 12.8 g/dL (12.0-15.0); Lymphocyte # 1.79 X10^3/ul (0.83-4.51); Lymphocyte % 27.7 % (19-41); Mean Corp Hgb Conc 32.1 g/dL (32-36); Mean Corpuscular Hgb 28.6 pg (27.0-32.0); Mean Corpuscular Volume 89.3 fL (81-99); Monocyte# 0.33 X10^3/uL; Monocyte% 5.1 % (0-10); NRBC Flagged by Analyzer 0 % (0-5); Neutrophil # 4.21 X10^3/uL (2.7-7.7); Platelet Count 259 K/mm3 (150-450); RBC Distribution Width CV 13.8 % (11.6-14.6); RBC Distribution Width SD 44.7 fl (35.1-43.9); Red Blood Count 4.47 M/mm3 (4.2-5.4); White Blood Count 6.5 K/mm3 (4.4-11.0)
[2020-09-10 17:55] LABS: International Normalized Ratio 1.1; Prothrombin Time (Protime)PT. 13.3 SECONDS (11.7-14.9)
[2020-09-10 17:56] LABS: ALB/GLOB Ratio 1.1 RATIO (0.9-2.4); AST(SGOT) 14 U/L (15-37); Alanine Aminotransfer ALT/SGPT 26 U/L (13-56); Albumin, Serum 4.1 g/dL (3.2-5.0); Alkaline Phosphatase 98 U/L (45-117); Anion Gap 5 (5-15); BUN 17 mg/dL (7-18); Calcium,Total 9.3 mg/dL (8.5-10.1); Chloride 105 mmol/L (98-107); Creatinine, Serum 0.71 mg/dL (0.55-1.02); EST Glomerular Filtration Rate 86 mL/min (>60); Est Glom Filt Rate - Afr Amer 104 mL/min (>60); Globulin 3.6 g/dL (2.2-4.2); Glucose 110 mg/dL (74-106); Partial Thromboplast Time 35.2 Seconds (24.1-36.2); Potassium 3.6 mmol/L (3.5-5.1); Protein, Total 7.7 g/dL (6.4-8.2); Sodium Level 140 mmol/L (136-145)
[2020-09-10 18:40] LABS: Protein, Urine (Random) 19.2 mg/dL (<11.9); Protein:Creat Ratio 48 mg/g CRE (0-200)
[2020-09-10 19:53] LABS: Color, Urine Yellow (Yellow); Glucose, Dipstick Normal (Normal); Ketone-Dipstick 5 mg/dl (Negative); Leukocyte Esterase-Dipstick 500 /ul (Negative); Nitrite-Dipstick Negative (Negative); Occult Blood-Urine Negative /ul (Negative); Protein-Dipstick 30 mg/dl (Negative); Specific Gravity, Urine 1.025 (1.002-1.030); Urine Clarity Cloudy (Clear); Urine Urobilinogen 1 mg/dl (Normal)
[2020-09-10 19:54] LABS: Urine Bilirubin Dipstick 1 mg/dL (Negative)
[2020-09-13 08:08] LABS: Dilute Prothrombin Time (dPT) 38.2 sec (0.0-55.0); Dilute Russell Viper Venom 48.2 sec (0.0-47.0); Hexagonal Phase Phospholipid 0 sec (0-11); PTT-LA 44.1 sec (0.0-51.9); Thrombin Time 16.9 sec (0.0-23.0); dPT Confirm Ratio 1.14 Ratio (0.00-1.40)
[2020-09-13 11:37] LABS: Interpretation Comment: (.)
== END ==
PROVIDERS: PCP Internal Medicine; Referring Provider Internal Medicine Rheumatology; Visit Provider Internal Medicine Rheumatology
DX: M06.4 Inflammatory polyarthropathy (principal); M79.7 Fibromyalgia; R76.8 Other specified abnormal immunological findings in serum; M35.00 Sjogren syndrome, unspecified; M18.0 Bilateral primary osteoarthritis of first carpometacarpal joints; R06.02 Shortness of breath; Z79.899 Other long term (current) drug therapy
CPT/HCPCS: 36415; 80053; 81002; 82570; 84156; 85025; 85598; 85610; 85670; 85730

== ENCOUNTER → 2020-11-06 15:47 | Outpatient (CLI) | payer MEDICARE, OTHER, SELFPAY ==
[2020-11-06 17:14] LABS: Vitamin D,25 Hydroxy 57.6 ng/mL
[2020-11-06 17:21] LABS: T4 Free Direct 1.35 ng/dL (0.76-1.46); Thyroid Stim Hormone (TSH) 0.32 uIU/mL (0.358-3.74)
== END ==
PROVIDERS: PCP Internal Medicine; Referring Provider Internal Medicine Endocrinology, Diabetes & Metabolism; Visit Provider Internal Medicine Endocrinology, Diabetes & Metabolism
DX: E03.9 Hypothyroidism, unspecified (principal); E55.9 Vitamin D deficiency, unspecified
CPT/HCPCS: 36415; 82306; 84439; 84443

== ENCOUNTER → 2021-01-01 15:31 | Outpatient (CLI) | payer MEDICARE, OTHER, SELFPAY ==
[2021-01-01 18:00] LABS: Absolute Lymphocyte Count 2.34 X10^3/uL (0.83-4.51); Absolute Neutrophil Count 5.2 X10^3/uL (2.0-7.7); Basophil# 0.03 X10^3/uL; Basophil% 0.4 % (0-1); Eosinophils% 1.2 % (0-5); Hematocrit 43.1 % (37-47); Lymphocyte # 2.34 X10^3/ul (0.83-4.51); Lymphocyte % 28.3 % (19-41); Mean Corp Hgb Conc 32.5 g/dL (32-36); Mean Corpuscular Hgb 29.9 pg (27.0-32.0); Mean Corpuscular Volume 91.9 fL (81-99); Mean Platelet Vol. 9.5 fl (6.2-12.0); Monocyte% 7.2 % (0-10); NRBC Flagged by Analyzer 0 % (0-5); Neutrophil # 5.18 X10^3/uL (2.7-7.7); Neutrophil % 62.5 % (47-70); Platelet Count 303 K/mm3 (150-450); RBC Distribution Width CV 14.9 % (11.6-14.6); RBC Distribution Width SD 50.3 fl (35.1-43.9); Red Blood Count 4.69 M/mm3 (4.2-5.4); White Blood Count 8.3 K/mm3 (4.4-11.0)
[2021-01-01 18:07] LABS: ALB/GLOB Ratio 0.9 RATIO (0.9-2.4); AST(SGOT) 16 U/L (15-37); Alanine Aminotransfer ALT/SGPT 23 U/L (13-56); Alkaline Phosphatase 99 U/L (45-117); Anion Gap 9 (5-15); BUN 24 mg/dL (7-18); BUN/Creat Ratio 25.8 RATIO (10-20); Calcium,Total 9.8 mg/dL (8.5-10.1); Chloride 102 mmol/L (98-107); Creatinine, Serum 0.93 mg/dL (0.55-1.02); EST Glomerular Filtration Rate 63 mL/min (>60); Est Glom Filt Rate - Afr Amer 76 mL/min (>60); Globulin 4.7 g/dL (2.2-4.2); Glucose 104 mg/dL (74-106); Potassium 3.5 mmol/L (3.5-5.1); Protein, Total 8.7 g/dL (6.4-8.2); Sodium Level 140 mmol/L (136-145)
[2021-01-01 18:19] LABS: T4 Free Direct 1.33 ng/dL (0.76-1.46); Thyroid Stim Hormone (TSH) 2.23 uIU/mL (0.358-3.74)
== END ==
PROVIDERS: Internal Medicine Endocrinology, Diabetes & Metabolism; PCP Internal Medicine; Referring Provider Internal Medicine Rheumatology; Visit Provider Internal Medicine Rheumatology
DX: M06.4 Inflammatory polyarthropathy (principal); M79.7 Fibromyalgia; R76.8 Other specified abnormal immunological findings in serum; M35.00 Sjogren syndrome, unspecified; M18.0 Bilateral primary osteoarthritis of first carpometacarpal joints; M17.0 Bilateral primary osteoarthritis of knee; K21.9 Gastro-esophageal reflux disease without esophagitis; M21.40 Flat foot [pes planus] (acquired), unspecified foot; F32.89 Other specified depressive episodes; E03.9 Hypothyroidism, unspecified; Z79.899 Other long term (current) drug therapy
CPT/HCPCS: 36415; 80053; 84439; 84443; 85025

== ENCOUNTER → 2021-11-03 | Outpatient (CLI) | payer MEDICARE, OTHER, SELFPAY ==
--- NOTE | 2021-11-03 16:08 | BI_ITS ---
MAMMOGRAPHY - BILATERAL SCREENING 3-D TOMOSYNTHESIS REASON FOR EXAM: Female, 76 years old. screening for breast cancer PERTINENT HISTORY: No significant family history. TECHNIQUE: 2-D mammograms and 3-D Tomosynthesis of the breast (s) were performed. CAD was performed. COMPARISON: 08/21/2020 FINDINGS: The breast composition is composed of scattered fibroglandular density. Scattered benign calcifications are seen. No dense spiculated masses or suspicious microcalcifications are identified. No architectural distortion is identified. There is no skin thickening or retraction. There has been no significant change since the prior study. BI/SCRN MAMM (CAD)W/JOSI BILAT IMPRESSION: No mammographic signs of malignancy. Routine yearly mammograms recommended. ASSESSMENT CATEGORY: BIRADS Category 1: Negative. A letter regarding these results will be sent to the patient by the facility within 30 days. FOLLOW UP RECOMMENDATION: Yearly follow up mammogram recommended. (A) Approximately 10% of breast cancers are not detected by mammography. A normal mammogram should not delay biopsy of a clinically suspicious abnormality. Electronically Signed: Marcos Bassett MD at 17:07 EDT ,
== END | disposition home or self-care (01) ==
LOC: OPBI 16:07
PROVIDERS: PCP Internal Medicine; Visit Provider Surgery
DX: Z12.31 Encounter for screening mammogram for malignant neoplasm of breast (principal)
CPT/HCPCS: 77063; 77067

== ENCOUNTER 2023-11-21 17:30 | Emergency (ER) | payer MEDICARE, OTHER, SELFPAY ==
[2023-11-21 17:31] VITALS: BP 157/104; PULSE 88; RESP 18; TEMP 36.8; O2SAT 94; BMI 41.3
--- NOTE | 2023-11-21 18:48 | EX.ED.DYSGE1 ---
HPI History of Present Illness Chief Complaint: Sore Throat Informant: patient and family Narrative Narrative: 78-year-old female presenting to the emergency room with pain in the right side of her throat. Patient states about 2 weeks ago due to some acid reflux she had a very bad emesis. She states that beginning on evening she began to have pain on the right side of her throat. She does not pain up into her ear pain extending down the right side of her neck. She notes a low-grade temperatures of 99 and last night 100. Patient is a patient states that she sees some white spots behind where her tonsils should be. She is status post tonsillectomy and adenoidectomy. Patient notes sinus drainage. She notes painful swallowing. Despite her history of Sjogren's and lupus she states she is not immunosuppressed. However her medication list I do see methotrexate. [facility] Medical History (Updated 11/21/23 @ 21:[address] Que Rmoo, DO) Lupus H/O Sjogren's disease Obesity Decreased mobility Diabetes Fibromyalgia Arthritis Personal history of colonic polyps Cholelithiasis with chronic cholecystitis Abnormal mammogram of left breast History of breast cancer History of DVT (deep vein thrombosis) GERD (gastroesophageal reflux disease) ROSEANNE (obstructive sleep apnea) Home Medications ?Medication ?Instructions ?Recorded ?Last Taken ?Type alprazolam 0.5 mg tablet 0.25 - 0.5 mg PO DAILY PRN Anxiety 01/03/15 11/03/18 History hydrochlorothiazide 25 mg tablet 25 mg PO DAILY HTN 01/03/15 04/04/16 History atorvastatin 40 mg tablet (Lipitor) 40 mg PO QHS 06/10/17 Unknown History famotidine 40 mg tablet (Pepcid) 40 mg PO QHS REFLUX 06/10/17 Unknown History sertraline 25 mg tablet (Zoloft) 25 mg PO DAILY DEPRESSION 06/27/18 Unknown History celecoxib 200 mg capsule 200 mg PO DAILY INFLAMATION 10/02/18 Unknown History cyclosporine 0.05 % eye drops in a 1 drp EACH EYE BID PRN Dry Eyes 10/02/18 Unknown History dropperette mirtazapine 15 mg disintegrating 15 mg PO QHS depression 10/02/18 Unknown History tablet nebivolol 10 mg tablet 10 mg PO DAILY HTN 10/02/18 11/03/18 History folic acid 1 mg tablet 1 mg PO DAILY 10/27/18 Unknown History methotrexate sodium 2.5 mg tablet 12.5 mg PO Q7D autoimmune disorder 10/27/18 Unknown History nitrofurantoin 100 mg PO Q12 #14 caps 01/30/19 Unknown Rx monohydrate/macrocrystals 100 mg capsule phenazopyridine 200 mg tablet 200 mg PO BID #6 tabs 01/30/19 Unknown Rx dicyclomine 10 mg capsule cap PO 11/06/20 Unknown History metformin 500 mg tablet,extended ea PO 11/06/20 Unknown History release 24 hr omeprazole 20 mg capsule,delayed 20 mg PO DAILY 11/06/20 Unknown History release tramadol 50 mg tablet ea PO 11/06/20 Unknown History levothyroxine 137 mcg tablet 137 mcg PO .COMPLEX #90 tabs 02/09/21 Unknown Rx cefdinir 250 mg/5 mL oral 300 mg (6 mL) PO BID 10 days #120 11/21/23 Unknown Rx suspension mL pantoprazole 40 mg tablet,delayed 40 mg PO DAILY #14 tabs 11/21/23 Unknown Rx release (Protonix) Allergy/AdvReac Type Severity Reaction Status Date / Time grass pollen Allergy Unknown Verified 11/21/23 17:31 amoxicillin (Amoxicillin) AdvReac Other Verified 11/21/23 17:31 nifedipine (From Procardia) AdvReac Rash Verified 11/21/23 17:31 sulfamethoxazole (From AdvReac Other Verified 11/21/23 17:31 Bactrim) trimethoprim (From Bactrim) AdvReac Other Verified 11/21/23 17:31 Family History Mother CAD (coronary artery disease) Sister Breast cancer Hypertension Father CAD (coronary artery disease) Surgical History History of liver biopsy Hx of cholecystectomy Status post left breast lumpectomy Status post left breast biopsy Social History Smoking Status: Never smoker second hand exposure: No alcohol intake: never substance use type: does not use caffeine: Yes what type of physical activity do you participate in: none frequency: does not exercise ROS ROS ED Constitutional Constitutional ED: Reports fever(s); Denies chills or weight loss Eyes Eyes: Denies change in vision or diplopia ENT ENT ED: Reports ear pain, rhinorrhea, sore throat and other Details: Postnasal drip Cardiovascular Cardiovascular: Denies chest pain, orthopnea, palpitations or racing heartbeat Respiratory/Chest Respiratory/Chest: Denies cough, dyspnea or orthopnea Gastrointestinal Gastrointestinal: Denies abdominal pain, diarrhea, nausea or vomiting Genitourinary Genitourinary ED: Denies dysuria, hematuria or urinary frequency Musculoskeletal Musculoskeletal: Denies arthralgias or myalgias Integumentary Denies abscess or rash Neurologic Neurologic: Denies headache(s) or weakness Psychiatric Psychiatric: Denies anxiety, depression, suicidal ideation or suicidal thoughts Endocrine Endocrinology: Denies polydipsia, polyphagia or polyuria Allergic/Immunologic Allergic/Immunologic ED: Denies mouth swelling, tongue swelling or urticaria EXAM Physical Exam Const Vital Signs: 11/21/23 17:31 11/21/23 19:47 11/21/23 21:00 Temperature 98.3 F 98.3 F Temperature Source Oral Temporal Pulse Rate 88 85 87 Respiratory Rate 18 18 18 Blood Pressure 157/104 H 165/91 H Blood Pressure Mean 121 115 Pulse Ox 94 94 100 Oxygen Delivery Method Room Air Room Air Positive well nourished, well developed and obese General Appearance ED: well developed and NAD Nutritional Appearance: obese HEENT Reports normocephalic, head/scalp atraumatic and moist mucous membranes HEENT Narrative: There is no trismus. Floor of the mouth is soft. There is some mild swelling and exudate just posterior to the right tonsillar pillars. I do not appreciate a UTI. I do not appreciate any obvious peritonsillar or retropharyngeal abscess. No significant lymphadenopathy is felt. No drooling. No hot potato voice. Eyes PERRL and EOMs intact bilaterally Neck no lymphadenopathy, supple and no JVD Resp normal respiratory effort and clear to auscultation bilaterally Cardio regular rate, regular rhythm and no murmurs GI normal to inspection, nondistended, normoactive bowel sounds and non-tender Palpation: soft Back/Spine no CVA tenderness and normal ROM Extremity normal to inspection General Extremety ED: Negative for edema General Extremity: Negative for edema Neuro oriented x3 and CN's II-XII intact bilaterally Sensorium / Orientation: alert Motor Exam: strength 5/5 throughout Psych mental status grossly normal Mood & Affect: Negative for depressed or tearful Skin no rashes or lesions noted and no wounds MDM MDM MDM Narrative Medical decision making narrative: Differential diagnosis includes but not limited to but not limited to peritonsillar abscess GERD malignancy pharyngitis White count is normal at 6.9 monoscreen is negative creatinine 0.77 glucose 161. Throat culture was obtained. CT of the neck with IV contrast was obtained. Please see radiologist read. There is no definitive phlegmon or abscess is seen. There is laryngeal mucosal thickening/edema noted. Exact etiology is unclear. I spoke with the patient and her family. We administered a dose of Decadron and place her on Omnicef. She has been on omeprazole 20 mg for years. I will change her to Protonix. Recommend ENT follow-up for possible scope. I do wonder if the patient is having more GERD symptoms in the larynx. History & Record Review Discussion w/independent historian: Patient and Family Lab Data Attestation: I reviewed the patient's lab results. Labs: Laboratory Results - last 24 hr 11/21/23 19:10 WBC 6.9 RBC 4.51 Hgb 12.9 Hct 41.5 MCV 92.0 MCH 28.6 MCHC 31.1 L RDW Std Deviation 45.5 H RDW Coeff of Itzel 13.5 Plt Count 216 MPV 9.6 Immature Gran % (Auto) 0.600 Neut % (Auto) 54.3 Lymph % (Auto) 33.3 [place] % (Auto) 9.5 Eos % (Auto) 1.6 Baso % (Auto) 0.7 Absolute Neuts (auto) 3.7 Absolute Lymphs (auto) 2.29 Nucleated RBC % 0 Differential Comment SCANNED Atypical Lymphocytes 1+ Reactive Lymphocytes 1+ Stomatocytes 1+ Sodium 140 Potassium 3.4 L Chloride 102 Carbon Dioxide 33.0 H Anion Gap 6 BUN 13 Creatinine 0.77 Estim Creat Clear Calc 71.16 Est GFR (MDRD) Af Amer 93 Est GFR (MDRD) Non-Af 77 BUN/Creatinine Ratio 16.9 Glucose 161 H Calcium 9.8 Monoscreen Negative Radiography Diagnostic Testing: Clinical Impression(s) from Imaging Studies Soft Tissue Neck CT 11/21/23 19:40 IMPRESSION: 1. Bilateral faucial tonsillar calcifications are likely result of chronic and/or recurrent tonsillar infection/inflammation. No evidence of acute inflammatory process or peritonsillar fluid collection to indicate abscess. 2. Circumferential supraglottic laryngeal mucosal thickening and/or edema is nonspecific. Minimal extension into the preepiglottic space. Malignancy cannot be excluded. Recommend ENT consultation for direct visualization. 3. There is no lymphadenopathy. 4. Scattered mucosal thickening in the paranasal sinuses. In the left sphenoid sinus, there is focal calcification and mucosal thickening suggesting chronic inspissation rather than fungal elements. Electronically Signed: Marcos Hatch DO at 20:32 EDT , Discharge Plan Triage Chief Complaint: Sore Throat ED Provider: Que Romo Dx/Rx/DC Orders Clinical Impression: Pharyngitis Prescriptions: New cefdinir 250 mg/5 mL suspension for reconstitution 300 mg PO BID 10 Days Qty: 120 0RF pantoprazole [Protonix] 40 mg tablet,delayed release (DR/EC) 40 mg PO DAILY Qty: 14 0RF No Action atorvastatin [Lipitor] 40 mg tablet 40 mg PO QHS famotidine [Pepcid] 40 mg tablet 40 mg PO QHS sertraline [Zoloft] 25 mg tablet 25 mg PO DAILY omeprazole 20 mg capsule,delayed release(DR/EC) 20 mg PO DAILY Patient Comments: TAKE 1 2 CAPSULES BY MOUTH DAILY BEFORE BREAKFAST. metformin 500 mg tablet extended release 24 hr PO Patient Comments: TAKE 1 TABLET BY MOUTH EVERY DAY WITH BREAKFAST tramadol 50 mg tablet PO Patient Comments: TAKE 1 TABLET BY MOUTH 3 TIMES A DAY NEEDED dicyclomine 10 mg capsule PO alprazolam 0.5 MG tablet 0.25 - 0.5 mg PO DAILY PRN (Reason: Anxiety) Patient Comments: ANXIETY hydrochlorothiazide 25 MG tablet 25 mg PO DAILY Patient Comments: WATER PAILL methotrexate sodium 2.5 MG tablet 12.5 mg PO Q7D folic acid 1 MG tablet 1 mg PO DAILY nebivolol 10 MG tablet 10 mg PO DAILY celecoxib 200 MG capsule 200 mg PO DAILY mirtazapine 15 MG tablet,disintegrating 15 mg PO QHS cyclosporine 1 DROP dropperette 1 drp EACH EYE BID PRN (Reason: Dry Eyes) nitrofurantoin monohyd/m-cryst 100 MG capsule 100 mg PO Q12 Qty: 14 0RF phenazopyridine 200 MG tablet 200 mg PO BID Qty: 6 0RF levothyroxine 137 mcg tablet 137 mcg PO .COMPLEX Qty: 90 1RF Rx Instructions: 137 mcg PO daily, except 1/2 every Tuesday; Primary Care Provider: Radha Velarde Referrals: Radha Velarde MD [Primary Care Provider] - Tanner Frazier MD [Med Staff - Active Staff] - As soon as possible Activity Restrictions/Additional Instructions: Until directed otherwise please discontinue your omeprazole and begin taking Protonix Please follow-up with ENT as soon as possible. It is recommended that you have a scope to evaluate your larynx. Print Language: Liberian Disposition Disposition: Home, Self Care Discharge Date/Time: 11/21/23 21:39
[2023-11-21 19:16] LABS: Absolute Lymphocyte Count 2.29 X10^3/uL (0.83-4.51); Absolute Neutrophil Count 3.7 X10^3/uL (2.0-7.7); Basophil# 0.05 X10^3/uL; Basophil% 0.7 % (0-1); Eosinophil# 0.11 X10^3/uL; Eosinophils% 1.6 % (0-5); Hematocrit 41.5 % (37-47); Hemoglobin 12.9 g/dL (12.0-15.0); Lymphocyte # 2.29 X10^3/ul (0.83-4.51); Lymphocyte % 33.3 % (19-41); Mean Corp Hgb Conc 31.1 g/dL (32-36); Mean Corpuscular Hgb 28.6 pg (27.0-32.0); Mean Platelet Vol. 9.6 fl (6.2-12.0); Monocyte# 0.65 X10^3/uL; Monocyte% 9.5 % (0-10); NRBC Flagged by Analyzer 0 % (0-5); Neutrophil # 3.73 X10^3/uL (2.7-7.7); Neutrophil % 54.3 % (47-70); POSITIVE MORPHOLOGY YES; Platelet Count 216 K/mm3 (150-450); RBC Distribution Width CV 13.5 % (11.6-14.6); RBC Distribution Width SD 45.5 fl (35.1-43.9); Red Blood Count 4.51 M/mm3 (4.2-5.4); White Blood Count 6.9 K/mm3 (4.4-11.0)
[2023-11-21 19:23] LABS: Differential Indicated SCAN CRITERIA MET
[2023-11-21 19:30] LABS: Anion Gap 6 (5-15); BUN 13 mg/dL (7-18); BUN/Creat Ratio 16.9 RATIO (10-20); Calcium,Total 9.8 mg/dL (8.5-10.1); Chloride 102 mmol/L (98-107); Creatinine, Serum 0.77 mg/dL (0.55-1.02); EST Glomerular Filtration Rate 77 mL/min (>60); Est Glom Filt Rate - Afr Amer 93 mL/min (>60); Estimated Creatinine Clearance 71.16 ml/min; Glucose 161 mg/dL (74-106); Potassium 3.4 mmol/L (3.5-5.1); Sodium Level 140 mmol/L (136-145)
[2023-11-21 19:31] LABS: Internal QC Validated? YES +Cl - CLEAR BKGD; Monotest Negative (Negative); Record Kit Lot#, Mono 13241033
--- NOTE | 2023-11-21 19:40 | CT_ITS ---
EXAM: CT NECK WITH INTRAVENOUS CONTRAST CLINICAL INDICATION: right peritonsillar abscess TECHNIQUE: Helically acquired images were obtained of the neck with intravenous contrast. This CT exam was performed using one or more of the following dose reduction techniques: automated exposure control, adjustment of the mA and/or kV according to patient size, and/or use of iterative reconstruction technique. CONTRAST: IV 100mL [id number] COMPARISON: Cervical spine radiographs, 09/06/2019 FINDINGS: BRAIN AND EXTRA-AXIAL SPACES: Global parenchymal volume loss and chronic appearing ischemic changes. NASOPHARYNX: No significant abnormality. SUPRAHYOID NECK: Bilateral faucial tonsillar calcifications are likely result of chronic and/or recurrent tonsillar infection/inflammation. No evidence of acute inflammatory process or peritonsillar fluid collection to indicate abscess. INFRAHYOID NECK: Circumferential supraglottic laryngeal mucosal thickening and/or edema is nonspecific. Minimal extension into the preepiglottic space. The vocal folds are coapted at midline. SUBMANDIBULAR/PAROTID GLANDS: No significant abnormality. Glands are normal in size. THYROID: No significant abnormality. No enlarged or calcified nodules. SINUSES: Scattered mucosal thickening in the paranasal sinuses. In the left sphenoid sinus, there is focal calcification and mucosal thickening suggesting chronic inspissation rather than fungal elements. BONES/JOINTS: Bilateral TMJ arthrosis and degenerative changes in the cervical spine. No acute fracture. SOFT TISSUES: See above. VASCULATURE: Atherosclerosis of the aorta and its branch vessels. Mild carotid bifurcation and carotid bulb atheroma with less than 50% stenosis by NASCET criteria. LYMPH NODES: There is no lymphadenopathy. LUNG APICES: Apparent chronic interstitial appearing changes in the lung apices. CT/Soft Tissue Neck WITH Contrast IMPRESSION: 1. Bilateral faucial tonsillar calcifications are likely result of chronic and/or recurrent tonsillar infection/inflammation. No evidence of acute inflammatory process or peritonsillar fluid collection to indicate abscess. 2. Circumferential supraglottic laryngeal mucosal thickening and/or edema is nonspecific. Minimal extension into the preepiglottic space. Malignancy cannot be excluded. Recommend ENT consultation for direct visualization. 3. There is no lymphadenopathy. 4. Scattered mucosal thickening in the paranasal sinuses. In the left sphenoid sinus, there is focal calcification and mucosal thickening suggesting chronic inspissation rather than fungal elements. Electronically Signed: Marcos Hatch DO at 20:32 EDT ,
[2023-11-21 19:47] VITALS: BP 165/91; PULSE 85; RESP 18; TEMP 36.8; O2SAT 94
[2023-11-21 19:50] LABS: Differential Comment SCANNED
[2023-11-21 19:52] LABS: Atypical Lymphocyte 1+ %; Reactive Lymphocyte 1+
[2023-11-21 19:55] LABS: Stomatocyte 1+
[2023-11-21] MEDS: Mag Hydrox/Al Hydrox/Simeth 30 ML UDC PO (20:25)
[2023-11-21] MEDS: Lidocaine 2% Viscous15 ML UDC 15 ML PO (20:25)
[2023-11-21 21:00] VITALS: PULSE 87; RESP 18; O2SAT 100
[2023-11-21] MEDS: dexAMETHasone 10 MG/ML Vial PO.IVFORM (21:17)
[2023-11-21] MEDS: Cefdinir Susp 125 MG/5 ML PO.SYRINGE 300 MG PO (21:28)
== END 2023-11-21 21:39 | disposition home or self-care (01) ==
PROVIDERS: Emergency Provider Emergency Medicine; PCP Internal Medicine; Visit Provider Emergency Medicine
DX: J02.9 Acute pharyngitis, unspecified (principal); E11.9 Type 2 diabetes mellitus without complications; G47.33 Obstructive sleep apnea (adult) (pediatric); E66.9 Obesity, unspecified; Z86.718 Personal history of other venous thrombosis and embolism
CPT/HCPCS: 70491; 80048; 85025; 86308; 87070; 99283; Q9967; A4216

== ENCOUNTER 2023-12-27 17:27 | Inpatient (IN) | payer MEDICARE, OTHER, SELFPAY ==
[2023-12-27 17:29] VITALS: BP 127/60; PULSE 80; RESP 18; TEMP 36.6; O2SAT 95
[2023-12-27 17:42] VITALS: O2SAT 95
[2023-12-27 17:43] VITALS: BP 146/80; PULSE 84; RESP 20; O2SAT 96
--- NOTE | 2023-12-27 18:25 | EKG12_ITS ---
Test Reason : SOB Blood Pressure : */* mmHG Vent. Rate : 84 BPM Atrial Rate : 84 BPM P-R Int : 146 ms QRS Dur : 146 ms QT Int : 414 ms P-R-T Axes : -15 -34 113 degrees QTcB Int : 489 ms Normal sinus rhythm Left axis deviation Left bundle branch block Abnormal ECG Confirmed by BRITANY PADRON, LOTTIE ([id number]), movie editor NGUYỄN HUSAIN ([id number]) on 12/28/2023 8:57:02 AM Referred By: JC Confirmed By: LOTTIE GARG MD
--- NOTE | 2023-12-27 18:27 | EDS_ITS ---
HPI History of Present Illness Chief Complaint: Shortness of Breath Informant: patient, family and PCP Narrative Narrative: 78-year-old female has been having chest pain and shortness of breath for the past 3-4 weeks, was seen in the office today, had an EKG that showed a left bundle branch block, this was new for her but the most recent EKG that they had to compare with was from 2013, but for these reasons she was sent to the ER for further evaluation. The patient states that the chest discomfort she has she believes is esophageal, she has some chronic GI issues that been going on for several months that her doctor is working up as an outpatient, saying that she is trying to get a scope set up. Says the chest discomfort is there 06/09, sometimes it gets worse and sometimes better but she cannot recall any obvious triggers or reasons for getting better or worse. She states the dyspnea has been unrelated to the chest discomfort, but occurs often with mild exertion. She denies orthopnea or leg edema. She states she occasionally feels some palpitations. She denies any syncopal episodes in the last month or near syncope. She has had a chemical stress test that was negative several years ago and no history of heart or lung problems that she knows of. [facility] Medical History Lupus H/O Sjogren's disease Obesity Decreased mobility Diabetes Fibromyalgia Arthritis Personal history of colonic polyps Cholelithiasis with chronic cholecystitis Abnormal mammogram of left breast History of breast cancer History of DVT (deep vein thrombosis) GERD (gastroesophageal reflux disease) ROSEANNE (obstructive sleep apnea) Home Medications ?Medication ?Instructions ?Recorded ?Last Taken ?Type alprazolam 0.5 mg tablet 0.25 - 0.5 mg PO DAILY PRN Anxiety 01/03/15 12/27/23 History hydrochlorothiazide 25 mg tablet 25 mg PO DAILY HTN 01/03/15 12/26/23 History atorvastatin 40 mg tablet (Lipitor) 40 mg PO QHS 06/10/17 12/26/23 History famotidine 40 mg tablet (Pepcid) 40 mg PO QHS REFLUX 06/10/17 12/26/23 History metformin 500 mg tablet,extended 500 mg PO DAILY 11/06/20 12/26/23 History release 24 hr pantoprazole 40 mg tablet,delayed 40 mg PO DAILY #14 tabs 11/21/23 12/26/23 Rx release (Protonix) carvedilol 12.5 mg tablet 12.5 mg PO BID 12/27/23 12/26/23 History escitalopram oxalate 10 mg tablet 20 mg PO DAILY 12/27/23 12/26/23 History levothyroxine 137 mcg tablet 137 mcg PO DAILY 12/27/23 12/27/23 History Allergy/AdvReac Type Severity Reaction Status Date / Time cefdinir Allergy Mild THRUSH Verified 12/27/23 17:29 empagliflozin (From Allergy Mild YEAST Verified 12/27/23 17:29 Jardiance) INFECTION grass pollen Allergy Unknown Verified 12/27/23 17:28 amoxicillin (Amoxicillin) AdvReac Other Verified 12/27/23 17:28 nifedipine (From Procardia) AdvReac Rash Verified 12/27/23 17:28 sulfamethoxazole (From AdvReac Other Verified 12/27/23 17:28 Bactrim) trimethoprim (From Bactrim) AdvReac Other Verified 12/27/23 17:28 Family History Mother CAD (coronary artery disease) Sister Breast cancer Hypertension Father CAD (coronary artery disease) Surgical History History of liver biopsy Hx of cholecystectomy Status post left breast lumpectomy Status post left breast biopsy Social History Smoking Status: Never smoker second hand exposure: No alcohol intake: never substance use type: does not use caffeine: Yes what type of physical activity do you participate in: none frequency: does not exercise ROS ROS ED Constitutional Constitutional ED: Denies chills or fever(s) Eyes Eyes: Denies change in vision or diplopia ENT ENT ED: Denies rhinorrhea or sore throat Cardiovascular Cardiovascular: Reports as per HPI and chest pain; Denies orthopnea, palpitations, pedal edema or radiating jaw, neck or arm pain Respiratory/Chest Respiratory/Chest: Reports dyspnea on exertion; Denies cough or orthopnea Gastrointestinal Gastrointestinal: Reports abdominal pain; Denies diarrhea, melena, nausea or vomiting Genitourinary Genitourinary ED: Denies dysuria or hematuria Musculoskeletal Musculoskeletal: Denies back pain or neck pain Integumentary Denies abscess or rash Neurologic Neurologic: Denies headache(s), paresthesias or weakness EXAM Physical Exam Const Vital Signs: 12/27/23 17:29 12/27/23 17:42 12/27/23 17:43 Temperature 98 F Temperature Source Oral Pulse Rate 80 84 Respiratory Rate 18 20 H Respiratory Effort Non-Labored Respiratory Depth Normal Blood Pressure 127/60 H 146/80 H Blood Pressure Mean 82 102 Pulse Ox 95 96 Oxygen Delivery Method Room Air Room Air Room Air 12/27/23 18:44 12/27/23 19:31 Temperature 97.5 F L Temperature Source Pulse Rate 77 81 Respiratory Rate 22 H 22 H Respiratory Effort Respiratory Depth Blood Pressure 161/71 H 167/86 H Blood Pressure Mean 101 113 Pulse Ox 94 96 Oxygen Delivery Method Room Air Positive well nourished, well developed and obese General Appearance ED: well developed and NAD Nutritional Appearance: obese HEENT Reports moist mucous membranes normocephalic and atraumatic Eyes PERRL and EOMs intact bilaterally Neck full ROM and supple Resp normal respiratory effort Resp Narrative: Minor end expiratory basilar wheezes that resolve on re-auscultation before the end of exam, otherwise clear and equal. Cardio regular rate, regular rhythm and no murmurs GI non-tender and non-distended Auscultation: normoactive bowel sounds Palpation: soft Back/Spine no CVA tenderness General Back: other FROM Extremity normal to inspection General Extremety ED: Negative for edema, pulses abnormal or tenderness General Extremity: Negative for edema or pulses abnormal Neuro oriented x3, CN's II-XII intact bilaterally and no sensory deficits noted Sensorium / Orientation: awake and alert Motor Exam: strength 5/5 throughout Skin no rashes or lesions noted and no wounds MDM MDM MDM Narrative Medical decision making narrative: Patient has an elevated troponin but a normal BNP. She is asymptomatic at the current time. Etiology unclear, since she has been having symptoms for almost a month. Discussed with Dr. Esquivel, he agrees with admitting her and will consult tomorrow to determine further testing or intervention. History & Record Review Additional record(s) reviewed:: Other (Prior EKG see below) Lab Data Attestation: I reviewed the patient's lab results. Labs: Laboratory Results - last 24 hr 12/27/23 17:45 WBC 7.5 RBC 4.44 Hgb 12.9 Hct 40.5 MCV 91.2 MCH 29.1 MCHC 31.9 L RDW Std Deviation 44.2 H RDW Coeff of Itzel 13.3 Plt Count 245 MPV 10.8 Immature Gran % (Auto) 0.400 Neut % (Auto) 60.4 Lymph % (Auto) 30.7 [place] % (Auto) 5.8 Eos % (Auto) 2.3 Baso % (Auto) 0.4 Absolute Neuts (auto) 4.5 Absolute Lymphs (auto) 2.29 Nucleated RBC % 0 Sodium 139 Potassium 4.1 Chloride 103 Carbon Dioxide 29.0 Anion Gap 7 BUN 18 Creatinine 0.66 Estim Creat Clear Calc 71.08 Est GFR (MDRD) Af Amer 111 Est GFR (MDRD) Non-Af 91 BUN/Creatinine Ratio 27.1 H Glucose 218 H Calcium 9.9 Troponin I High Sens 247 H* B-Natriuretic Peptide 56.7 Radiography Diagnostic Testing: Clinical Impression(s) from Imaging Studies Chest X-Ray 12/27/23 18:30 IMPRESSION: Degenerative changes, as described above. No demonstrated acute cardiopulmonary process. Electronically Signed: Jason Recinos MD at 19:33 EST Reading Location ID and State: [id number] [place] [address] , Service support , Rhythm Strip Rhythm Strip: Sinus Rhythm Rate: 80 Ectopy: None EKG Initial EKG: Attestation: I personally reviewed and interpreted this EKG as follows: Interpretation: Sinus Rhythm, No Acute Injury Pattern and LBBB Prior EKG tracings: available for review Prior: Changed (Our last EKG is from 2019, described a sinus rhythm normal EKG; image of it is not available.) Management Discussion w/another healthcare provider: Hospitalist and Reconciliation Accountant (Cardiology) Discharge Plan Triage Chief Complaint: Shortness of Breath ED Provider: Jason Neves Dx/Rx/DC Orders Clinical Impression: MEDINA (dyspnea on exertion), Chest pain, unspecified, Elevated troponin, New onset left bundle branch block (LBBB) Prescriptions: No Action atorvastatin [Lipitor] 40 mg tablet 40 mg PO QHS famotidine [Pepcid] 40 mg tablet 40 mg PO QHS metformin 500 mg tablet extended release 24 hr 500 mg PO DAILY Patient Comments: TAKE 1 TABLET BY MOUTH EVERY DAY WITH BREAKFAST alprazolam 0.5 MG tablet 0.25 - 0.5 mg PO DAILY PRN (Reason: Anxiety) Patient Comments: ANXIETY hydrochlorothiazide 25 MG tablet 25 mg PO DAILY Patient Comments: WATER PAILL pantoprazole [Protonix] 40 mg tablet,delayed release (DR/EC) 40 mg PO DAILY Qty: 14 0RF carvedilol 12.5 mg tablet 12.5 mg PO BID escitalopram oxalate 10 mg tablet 20 mg PO DAILY Patient Comments: PLEASE SEE ATTACHED FOR DETAILED DIRECTIONS levothyroxine 137 mcg tablet 137 mcg PO DAILY Primary Care Provider: Radha Velarde Referrals: Radha Velarde MD [Primary Care Provider] - Print Language: Norwegian Disposition Disposition: Acute Care [facility]
--- NOTE | 2023-12-27 18:30 | RAD_ITS ---
STUDY: X-RAY CHEST REASON FOR EXAM: Female, 78 years old. MEDINA TECHNIQUE: PA and lateral views of the chest. COMPARISON: November 09, 2018 FINDINGS: There are interstitial fibrotic changes of the lungs. There is no demonstrated pleural abnormality. There is postoperative change of the left breast. Normal size heart. Normal mediastinum and rachel. Normal visualized pulmonary arteries. Normal visualized aortic arch and descending thoracic aorta. There is demineralization of the osseous structures. Normal visualized ribs, clavicles, and shoulders. There is no demonstrated abnormality of the visualized soft tissue structures of the upper abdomen. RAD/Chest PA and Lateral IMPRESSION: Degenerative changes, as described above. No demonstrated acute cardiopulmonary process. Electronically Signed: Jason Recinos MD at 19:33 EST ,
[2023-12-27 18:35] LABS: Absolute Lymphocyte Count 2.29 X10^3/uL (0.83-4.51); Absolute Neutrophil Count 4.5 X10^3/uL (2.0-7.7); Basophil# 0.03 X10^3/uL; Basophil% 0.4 % (0-1); Eosinophil# 0.17 X10^3/uL; Eosinophils% 2.3 % (0-5); Hematocrit 40.5 % (37-47); Hemoglobin 12.9 g/dL (12.0-15.0); Lymphocyte # 2.29 X10^3/ul (0.83-4.51); Lymphocyte % 30.7 % (19-41); Mean Corp Hgb Conc 31.9 g/dL (32-36); Mean Corpuscular Hgb 29.1 pg (27.0-32.0); Mean Corpuscular Volume 91.2 fL (81-99); Mean Platelet Vol. 10.8 fl (6.2-12.0); Monocyte# 0.43 X10^3/uL; Monocyte% 5.8 % (0-10); NRBC Flagged by Analyzer 0 % (0-5); Neutrophil # 4.52 X10^3/uL (2.7-7.7); Neutrophil % 60.4 % (47-70); Platelet Count 245 K/mm3 (150-450); RBC Distribution Width CV 13.3 % (11.6-14.6); RBC Distribution Width SD 44.2 fl (35.1-43.9); Red Blood Count 4.44 M/mm3 (4.2-5.4); White Blood Count 7.5 K/mm3 (4.4-11.0)
[2023-12-27 18:44] VITALS: BP 161/71; PULSE 77; RESP 22; O2SAT 94
[2023-12-27 18:49] VITALS: BMI 41.3
[2023-12-27 19:00] LABS: Anion Gap 7 (5-15); BUN 18 mg/dL (7-18); BUN/Creat Ratio 27.1 RATIO (10-20); Calcium,Total 9.9 mg/dL (8.5-10.1); Chloride 103 mmol/L (98-107); Creatinine, Serum 0.66 mg/dL (0.55-1.02); EST Glomerular Filtration Rate 91 mL/min (>60); Est Glom Filt Rate - Afr Amer 111 mL/min (>60); Estimated Creatinine Clearance 71.08 ml/min; Glucose 218 mg/dL (74-106); Potassium 4.1 mmol/L (3.5-5.1); Sodium Level 139 mmol/L (136-145); Troponin-I HS 247 pg/mL (3.0-54.0)
[2023-12-27 19:06] LABS: BNP,B-Type NATRIURETIC PEPTIDE 56.7 pg/mL (0-100)
[2023-12-27 19:31] VITALS: BP 167/86; PULSE 81; RESP 22; TEMP 36.4; O2SAT 96
--- NOTE | 2023-12-27 19:40 | HP.PCM.HOS_ITS ---
HPI - General General Date of Admission: 12/27/23 Date of Service: 12/27/23 Chief Complaint: Chest pain, dyspnea. 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, Diabetes mellitus type II, Hypothyroidism who presents to the [facility] ED on 12/27/23 with history of ongoing dyspnea as well as chest discomfort persistent for the last 3 to 4 weeks with outpatient PCP evaluation with EKG demonstrating a left bundle branch block which was new from previous with patient describing the chest discomfort is more dyspepsia type in nature with chest discomfort ongoing 06/09 sometimes worse but patient difficulty recalling any specific triggers or causes for worsening or improving symptoms however her discomfort does seem to be more prominent if she is exerting herself with occasional palpitations prompting eventual ED evaluation. She denies any chest pressure or tightness and states that it is again more dyspepsia and midline. She does state that the dyspnea over the last 2 to 3 weeks has been worse and reports even getting up to take a chest x-ray in the ED she became short of breath. Workup in the ED included T98, heart rate 80, BP 127/60, respiratory rate 18, 95% on room air with most recent repeat vitals T97.5, heart rate 81, BP 167/86, respiratory rate 22, 96% on room air, CBC with WBC 7.5, hemoglobin 12.9, platelet 245 without marked shift, BMP with glucose 218, BNP 56.7, troponin 247, chest x-ray with degenerative changes with no acute cardiopulmonary findings, D-dimer pending upon requested evaluation of patient, EKG with sinus rhythm with left bundle branch block with no acute evidence of ischemia. ED discussed case with Dr. Neves who requested continued serial troponins, declined heparin/lovenox initially and noted planned evaluation. [facility] Medical History Anxiety Depression Former smoker Hypertension Anxiety and depression HLD (hyperlipidemia) Lupus H/O Sjogren's disease Obesity Diabetes Fibromyalgia Arthritis Personal history of colonic polyps Cholelithiasis with chronic cholecystitis Abnormal mammogram of left breast HTN (hypertension) History of breast cancer History of DVT (deep vein thrombosis) GERD (gastroesophageal reflux disease) ROSEANNE (obstructive sleep apnea) Home Medications ?Medication ?Instructions ?Recorded ?Last Taken ?Type alprazolam 0.5 mg tablet 0.25 - 0.5 mg PO DAILY PRN Anxiety 01/03/15 12/27/23 History hydrochlorothiazide 25 mg tablet 25 mg PO DAILY HTN 01/03/15 12/26/23 History atorvastatin 40 mg tablet (Lipitor) 40 mg PO QHS 06/10/17 12/26/23 History famotidine 40 mg tablet (Pepcid) 40 mg PO QHS REFLUX 06/10/17 12/26/23 History metformin 500 mg tablet,extended 500 mg PO DAILY 11/06/20 12/26/23 History release 24 hr pantoprazole 40 mg tablet,delayed 40 mg PO DAILY #14 tabs 11/21/23 12/26/23 Rx release (Protonix) carvedilol 12.5 mg tablet 12.5 mg PO BID 12/27/23 12/26/23 History escitalopram oxalate 10 mg tablet 20 mg PO DAILY 12/27/23 12/26/23 History levothyroxine 137 mcg tablet 137 mcg PO DAILY 12/27/23 12/27/23 History Allergy/AdvReac Type Severity Reaction Status Date / Time cefdinir Allergy Mild THRUSH Verified 12/27/23 17:29 empagliflozin (From Allergy Mild YEAST Verified 12/27/23 17:29 Jardiance) INFECTION grass pollen Allergy Unknown Verified 12/27/23 17:28 amoxicillin (Amoxicillin) AdvReac Other Verified 12/27/23 17:28 nifedipine (From Procardia) AdvReac Rash Verified 12/27/23 17:28 sulfamethoxazole (From AdvReac Other Verified 12/27/23 17:28 Bactrim) trimethoprim (From Bactrim) AdvReac Other Verified 12/27/23 17:28 Family History Mother CAD (coronary artery disease) Sister Breast cancer Hypertension Father CAD (coronary artery disease) Surgical History History of appendectomy History of liver biopsy Hx of cholecystectomy Status post left breast lumpectomy Status post left breast biopsy Social History Smoking Status: Never smoker second hand exposure: No alcohol intake: never substance use type: does not use caffeine: Yes what type of physical activity do you participate in: none frequency: does not exercise ROS ROS Narrative Admission Review of Systems: CONSTITUTIONAL: No weight loss, fever, chills, weakness or fatigue. HEENT: Eyes: No visual loss, blurred vision, double vision or yellow sclerae. Ears, Nose, Throat: No hearing loss, sneezing, congestion, runny nose or sore throat. SKIN: No rash or itching, lesions, wounds. CARDIOVASCULAR: + Atypical chest pain described however it is constant and has been long ongoing/more dyspepsia like description, palpitations, chronic lower extremity swelling. No orthopnea, syncopal events. RESPIRATORY: + Dyspnea, worse with exertion. No marked cough, sputum production, wheezing, hemoptysis. GASTROINTESTINAL: + Dyspepsia. No anorexia, nausea, vomiting or diarrhea, abdominal pain, melena, BRBPR. GENITOURINARY: No dysuria, frequency, urgency or retention. NEUROLOGICAL: No headache, dizziness, syncope, paralysis, ataxia, numbness or tingling in the extremities, focal weakness, change in bowel or bladder control, seizure. MUSCULOSKELETAL: No muscle, back pain, joint pain or stiffness. HEMATOLOGIC: No anemia, bleeding or bruising. LYMPHATICS: No enlarged nodes. No history of splenectomy. PSYCHIATRIC: + History of anxiety and depression ENDOCRINOLOGIC: No reports of sweating, cold or heat intolerance. No polyuria or polydipsia. ALLERGIES: No history of asthma, hives, eczema or rhinitis. Vital Signs Vital Signs Vital Signs: 12/27/23 17:29 12/27/23 17:42 12/27/23 17:43 Temperature 98 F Temperature Source Oral Pulse Rate 80 84 Respiratory Rate 18 20 H Respiratory Effort Non-Labored Respiratory Depth Normal Blood Pressure 127/60 H 146/80 H Blood Pressure Mean 82 102 Pulse Ox 95 96 Oxygen Delivery Method Room Air Room Air Room Air 12/27/23 18:44 12/27/23 19:31 Temperature 97.5 F L Temperature Source Pulse Rate 77 81 Respiratory Rate 22 H 22 H Respiratory Effort Respiratory Depth Blood Pressure 161/71 H 167/86 H Blood Pressure Mean 101 113 Pulse Ox 94 96 Oxygen Delivery Method Room Air Weight Weight: 240 lb 8.389 oz Body Mass Index (BMI) 41.3 Physical Exam Narrative Physical Examination: General: Awake, alert, oriented x 3 and cooperative, seated upright in the ED bed in no apparent distress, notes the chest discomfort is constant and more dyspepsia like in nature but states her shortness of breath is more severe, worse with exertion even with recently having to step off the bed for chest x- ray. Skin: Normal color, normal turgor, no icterus, no cyanosis except occasional stage ecchymoses, abrasion. HEENT: AT/NC, EOMI, PERRLA, MMM, difficult to assess carotid bruits and JVD given very thickened neck. Lungs: Mildly diminished, greater bases, mild increased respiratory rate but no distress, no rales, ronchi or wheezing. Heart: Regular rate and rhythm; no gallop, rub audible. Abdomen: Soft, morbidly obese, NTTP, distant normal BS, difficulty assessing distention and HSM given morbidly obese habitus. Extremities: No cyanosis, no clubbing, mild pedal to distal chau not markedly pitting edema, chronic per patient, no pain with palpation of the calves bilateral. Neurological: Patient awake, alert, oriented as noted, cognitive function intact; pupils equally reactive to light and accommodation, cranial nerves grossly normal, moving all 4 extremities, no focal deficits, strength moderately globally decreased secondary to acute presentation. Psychiatric: Affect appears fatigued otherwise normal, no acute evidence of depressive or anxiety feelings but does have underlying history. Results Lab / Micro Data 12/27/23 17:45 12/27/23 17:45 Labs: Laboratory Results - last 24 hr 12/27/23 17:45: WBC 7.5, RBC 4.44, Hgb 12.9, Hct 40.5, MCV 91.2, MCH 29.1, MCHC 31.9 L, RDW Std Deviation 44.2 H, RDW Coeff of Itzel 13.3, Plt Count 245, MPV 10.8, Immature Gran % (Auto) 0.400, Neut % (Auto) 60.4, Lymph % (Auto) 30.7, Traill % (Auto) 5.8, Eos % (Auto) 2.3, Baso % (Auto) 0.4, Absolute Neuts (auto) 4.5, Absolute Lymphs (auto) 2.29, Nucleated RBC % 0, Sodium 139, Potassium 4.1, Chloride 103, Carbon Dioxide 29.0, Anion Gap 7, BUN 18, Creatinine 0.66, Estim Creat Clear Calc 71.08, Est GFR (MDRD) Af Amer 111, Est GFR (MDRD) Non-Af 91, B UN/Creatinine Ratio 27.1 H, Glucose 218 H, Calcium 9.9, Troponin I High Sens 247 H*, B-Natriuretic Peptide 56.7 Rhythm Strip Rhythm Strip: Sinus Rhythm Rate: 80 Ectopy: None Imaging Radiology Impression Chest X-Ray 12/27/23 18:30 IMPRESSION: Degenerative changes, as described above. No demonstrated acute cardiopulmonary process. 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, Diabetes mellitus type II, Hypothyroidism who presents to the [facility] ED on 12/27/23 with history of ongoing dyspnea as well as chest discomfort persistent for the last 3 to 4 weeks with outpatient PCP evaluation with EKG demonstrating a left bundle branch block which was new from previous with patient describing the chest discomfort is more dyspepsia type in nature with chest discomfort ongoing 06/09 sometimes worse but patient difficulty recalling any specific triggers or causes for worsening or improving symptoms however her discomfort does seem to be more prominent if she is exerting herself with occasional palpitations prompting eventual ED evaluation. #1. Chest Pain, significantly worsening dyspnea worse with exertion with EKG changes with new L bundle branch block and exertional dyspnea with significantly elevated troponin of unclear significance: EKG in ED with sinus rhythm with new left bundle branch block with no acute evidence of ischemia, CXR w/ no acute cardiopulmonary finding, initial trop 247. Will admit to PCU, place on a monitored bed to assure no acute myocardial infarction with serial cardiac enzymes and EKGs. Magnesium level requested. Echocardiogram requested. FLP in AM. Cardiology will be consulted if dimer is not elevated and CTPA needs to be pursued and no evidence of PE however this is all still pending as D-dimer is pending upon request evaluation of patient. Will judiciously hydrate overnight with n.p.o. status following. ASA, NG. #2. History of left-sided breast cancer, combination invasive ductal and lobular carcinoma: History of conservative surgery for the left breast in 2001 with combined invasive ductal and lobar carcinoma as well as radiation treatment with significant postradiation changes, most recently noted records with ultrasound-guided breast biopsy 06/27/[address] Alvarez, encourage continued outpatient follow-up as previously arranged, considered in remission. #3. Hypertension: Continue home regimen including hydrochlorothiazide, Coreg with further adjustments as needed, PRN hydralazine. #4. Hyperlipidemia: Continue home statin regimen. AM FLP. #5. Sjogren's disease, lupus: Noted history, per current list is not on any kind of systemic treatment, encourage continued outpatient follow-up with rheumatology as previously arranged. #6. Hypothyroidism: Following with Dr. Galindo, we will continue patient on levothyroxine regimen and encourage continued outpatient follow-up. #7. Anxiety and depression: We will continue patient home escitalopram and low- dose judicious alprazolam home regimen. #8. Diabetes mellitus type II: Hold oral home regimen, ADA diet, accu checks w/ ISS. #9. History of VTE: Patient reports that she had a DVT following a trauma when she was 20 but is never had any other recurrent clots since then, D-dimer pending upon request evaluation of patient as noted. #10. GERD: We will continue patient on PPI. #11. Morbid Obesity: Weight loss and lifestyle changes encouraged. #12. ROSEANNE: Unable to tolerate PAP therapy. #13. DVT prophylaxis: Lovenox. #14. CODE status: Patient KAYLYNN is her and living will is not currently in place. Discussed CODE status at length including difference between FULL code, DNR-CCA and DNR-CC status. Following discussions about the differences in these status, requested Full Code status. Charges/Coding Visit Charges Inpatient E&M: 79763 Init Hosp L3
[2023-12-27 19:52] LABS: D-Dimer Quantitative (DVT/PE) 0.91 FEU/ug/m (0.27-0.49)
--- NOTE | 2023-12-27 19:53 | EKG12_ITS ---
Test Reason : ADMIT EKG Blood Pressure : */* mmHG Vent. Rate : 78 BPM Atrial Rate : 78 BPM P-R Int : 162 ms QRS Dur : 150 ms QT Int : 440 ms P-R-T Axes : -16 -43 103 degrees QTcB Int : 501 ms Normal sinus rhythm Left axis deviation Left bundle branch block Abnormal ECG When compared with ECG of 27-Dec-2023 17:40, MANUAL COMPARISON REQUIRED DATA IS UNCONFIRMED Confirmed by BRITANY PADRON, LOTTIE ([id number]), news assignment editor JACKSON SHIELDS ([id number]) on 12/28/2023 2:12:54 PM Referred By: Confirmed By: LOTTIE GARG MD
--- NOTE | 2023-12-27 19:55 | CT_ITS ---
STUDY: CTA CHEST REASON FOR EXAM: Female, 78 years old. Sob, elevated trop and d-dimer RADIATION DOSAGE (If Supplied By Facility): CTDIvol = ( 22.01 ) mGy, DLP = ( 534.38 ) mGycm TECHNIQUE: The examination was performed with the intravenous administration of IV 100mL Isovue-370. Post-processing of the angiographic images was performed, with multiplanar reformation and 3D reconstruction. Individualized dose optimization techniques were used for this CT. COMPARISON: April 05, 2016 FINDINGS: Normal enhancement of the main pulmonary artery and right and left pulmonary arteries. Normal enhancement of the bilateral peripheral pulmonary arteries. There is no demonstrated pulmonary embolism. There is atherosclerotic calcification of the aortic arch with tortuosity. There is no demonstrated aortic dissection. There are calcifications of the coronary arteries. Normal mediastinum. Normal hilar regions. Normal visualized trachea and bronchi. The lungs are well expanded. There are mild right lower lung patchy groundglass and airspace opacities. Normal pleura. There is postoperative change of the left breast. Normal osseous structures. Normal visualized upper abdomen. CT/CTA Chest W/WO Contrast IMPRESSION: CTA chest examination, without a demonstrated pulmonary embolism or arterial dissection. Right lower lobe pneumonia. Electronically Signed: Jason Recinos MD at 22:05 EST ,
[2023-12-27 20:18] LABS: Magnesium 2.3 mg/dL (1.6-2.6)
[2023-12-27 21:00] VITALS: BP 162/61; PULSE 83; RESP 16; TEMP 36.3; O2SAT 96; BMI 40.9
--- NOTE | 2023-12-27 21:07 | ECHOD_ITS ---
Reason For Study: CHEST PAIN, ELEVATED TROPONINS Procedure This was a 2D Doppler, Color Flow transthoracic echocardiogram. Exam performed portable in patient room. Left Ventricle Normal LV size. Left ventricular systolic function is normal. The left ventricular ejection fraction is 50 %. Septal [place] : Hypokinetic. Right Ventricle Normal RV size. Normal systolic function. Atria Normal left atrium. Normal right atrium. Mitral Valve Normal mitral valve. Mild (1+) eccentric mitral valve insufficiency. Tricuspid Valve Normal tricuspid valve. Mild tricuspid valve insufficiency. Aortic Valve Trisinus/trileaflet aortic valve. Mild focal aortic valve calcification. Pulmonic Valve Normal pulmonic valve. Great Vessels Normal aortic root. Pericardium/Pleural No pericardial effusion. MMode/2D Measurements & Calculations LVIDd: 4.9 cm IVSd: 1.3 cm Ao root diam: 2.9 cm LVIDs: 3.7 cm LVPWd: 1.3 cm RVDd: 3.9 cm FS: 23.3 % LAV(MOD-bp): 78.8 ml LVAd ap4: 34.0 cm2 LVAd ap2: 36.8 cm2 LAV(MOD-bp) Indexed: 37.4 ml/m2 LVLd ap4: 8.3 cm LVLd ap2: 9.0 cm LAV(MOD-sp2): 75.1 ml EDV(MOD-sp4): 115.5 ml EDV(MOD-sp2): 126.6 ml LAV(MOD-sp4): 75.8 ml EDV(sp4-el): 118.1 ml EDV(sp2-el): 127.5 ml LVAs ap4: 19.9 cm2 LVAs ap2: 23.3 cm2 LVLs ap4: 6.9 cm LVLs ap2: 8.4 cm ESV(MOD-sp4): 48.1 ml ESV(MOD-sp2): 56.5 ml ESV(sp4-el): 48.8 ml ESV(sp2-el): 55.1 ml EF(MOD-sp4): 58.4 % EF(MOD-sp2): 55.4 % EF(sp4-el): 58.7 % SV(MOD-sp4): 67.4 ml SV(MOD-sp2): 70.2 ml SV(sp4-el): 69.3 ml SI(MOD-sp4): 32.0 ml/m2 SI(MOD-sp2): 33.3 ml/m2 LA A4 area: 23.8 cm2 LA dimension(2D): 4.4 cm RA A4 area: 15.5 cm2 TAPSE: 2.8 cm Time Measurements MV dec time: 0.14 sec Doppler Measurements & Calculations MV E max tino: 83.5 cm/sec Lat Peak E' Tino: 8.3 cm/sec Med Peak E' Tino: 6.4 cm/sec MV A max tino: 98.1 cm/sec E/E' lat: 10.0 E/E' med: 13.0 MV E/A: 0.85 MV V2 max: 116.3 cm/sec MV P1/2t max tino: 97.2 cm/sec Ao V2 max: 155.8 cm/sec MV max P.4 mmHg MV P1/2t: 68.1 msec Ao max P.7 mmHg MV V2 mean: 70.2 cm/sec Ao V2 mean: 114.6 cm/sec MV mean P.2 mmHg MV dec slope: 418.1 cm/sec2 Ao mean P.7 mmHg MV V2 VTI: 31.9 cm MVA(P1/2t): 3.2 cm2 Ao V2 VTI: 33.8 cm AV (velocity ratio): 0.68 LV V1 max: 98.5 cm/sec PA V2 max: 121.4 cm/sec TR max tino: 235.7 cm/sec LV V1 max P.9 mmHg PA V2 mean: 79.2 cm/sec TR max P.2 mmHg LV V1 mean P.2 mmHg LV V1 mean: 68.7 cm/sec LV V1 VTI: 23.1 cm ECHO/Echo Complete Interpretation Summary The left ventricular ejection fraction is 50 %. Normal LV size. Left ventricular systolic function is normal. Septal [place] : Hypokinetic Ordering Physician: Keysha Torres Referring Physician: Radha Velarde Performed By: Mariah Moses RDCS, RVT
[2023-12-27 21:52] LABS: Troponin-I HS 226 pg/mL (3.0-54.0)
[2023-12-27] MEDS: Famotidine 20 MG Tablet 40 MG PO (22:05)
[2023-12-27] MEDS: Atorvastatin Calcium 40 MG Tablet PO (22:06)
[2023-12-27] MEDS: Enoxaparin 40 MG/0.4 ML Syringe SC (22:06)
[2023-12-27] MEDS: Carvedilol 12.5 MG Tablet PO (22:06)
[2023-12-27] MEDS: Aspirin 81 MG TAB.CHEW 324 MG PO (22:08)
[2023-12-28] VITALS (12 sets, daily range): BP systolic 118–222; BP diastolic 60–82; PULSE 75–88; RESP 16–18; TEMP 35.8–36.6; O2SAT 95–99; BMI 40.9
[2023-12-28] MEDS: Ceftriaxone 1 GM/50 ML BAG IV ×2 (00:04→23:08)
[2023-12-28 00:18] LABS: Troponin-I HS 247 pg/mL (3.0-54.0)
[2023-12-28] MEDS: Azithromycin 500 MG in Dextrose 5%-Water (250mL Bag) 250 ML 250 MG IV ×2 (00:52→23:58)
[2023-12-28 01:59] LABS: Procalcitonin 0.06 ng/mL (0.00-0.09)
[2023-12-28 02:10] LABS: Bedside Glucose 136 mg/dL (74-106)
[2023-12-28 06:32] LABS: Absolute Lymphocyte Count 2.17 X10^3/uL (0.83-4.51); Absolute Neutrophil Count 3.6 X10^3/uL (2.0-7.7); Basophil# 0.03 X10^3/uL; Basophil% 0.5 % (0-1); Eosinophils% 3.2 % (0-5); Hematocrit 35.5 % (37-47); Lymphocyte # 2.17 X10^3/ul (0.83-4.51); Lymphocyte % 34.2 % (19-41); Mean Corpuscular Hgb 28.9 pg (27.0-32.0); Mean Corpuscular Volume 93.2 fL (81-99); Mean Platelet Vol. 10.2 fl (6.2-12.0); Monocyte# 0.37 X10^3/uL; Monocyte% 5.8 % (0-10); NRBC Flagged by Analyzer 0 % (0-5); Neutrophil # 3.55 X10^3/uL (2.7-7.7); Platelet Count 202 K/mm3 (150-450); RBC Distribution Width CV 13.3 % (11.6-14.6); RBC Distribution Width SD 45.6 fl (35.1-43.9); Red Blood Count 3.81 M/mm3 (4.2-5.4); White Blood Count 6.3 K/mm3 (4.4-11.0)
[2023-12-28] MEDS: Insulin Lispro 100 UNIT/ML INSULN.PEN SC ×4 (06:47→21:27)
[2023-12-28] MEDS: Levothyroxine 137 MCG Tablet PO (06:47)
[2023-12-28 07:06] LABS: ALB/GLOB Ratio 0.9 RATIO (0.9-2.4); AST(SGOT) 13 U/L (15-37); Alanine Aminotransfer ALT/SGPT 18 U/L (13-56); Albumin, Serum 3.1 g/dL (3.2-5.0); Alkaline Phosphatase 65 U/L (45-117); Anion Gap 3 (5-15); BUN 20 mg/dL (7-18); BUN/Creat Ratio 25.5 RATIO (10-20); Calcium,Total 9.1 mg/dL (8.5-10.1); Chloride 108 mmol/L (98-107); Cholesterol 127 mg/dL (200); Creatinine, Serum 0.78 mg/dL (0.55-1.02); EST Glomerular Filtration Rate 76 mL/min (>60); Est Glom Filt Rate - Afr Amer 92 mL/min (>60); Estimated Creatinine Clearance 70.75 ml/min; Globulin 3.4 g/dL (2.2-4.2); Glucose 205 mg/dL (74-106); High Density Lipoprotein 35 mg/dL; Potassium 4.1 mmol/L (3.5-5.1); Protein, Total 6.5 g/dL (6.4-8.2); Sodium Level 140 mmol/L (136-145); Triglycerides 203 mg/dL; Very Low Density Lipoprotein 41 mg/dL (5-40)
[2023-12-28 07:16] LABS: Bedside Glucose 208 mg/dL (74-106)
--- NOTE | 2023-12-28 08:03 | CON.PCM.CA_ITS ---
Assessment & Plan Assessment/Plan (1) Elevated troponin: PLAN: She does have an elevated troponin the etiology of which is not clear at this particular time. But this coupled together with her shortness of breath may warrant further evaluation. An echocardiogram performed demonstrated preserved ejection fraction with mild hypokinesis of the distal septum. I would recommend a left heart catheterization to definitively exclude obstructive coronary disease and depending on the findings further recommendations will be made. (2) MEDINA (dyspnea on exertion): PLAN: She does have dyspnea on exertion the etiology of which is not entirely clear. We will investigate this with a heart catheterization. (3) Hypertension: PLAN: She does have a history of hypertension her blood pressure is under good control I would not recommend we make any changes. (4) New onset left bundle branch block (LBBB): PLAN: She does have a left bundle branch block the duration of which is unclear. Her last previous EKG was from 2013. It is also possible that some of her echocardiographic changes are from the left bundle branch block. Thank you for allowing me to participate in the care of your patient. Please don't hesitate to call if any issues arise. HPI Consult Data Date of Consult: 12/28/23 HPI Narrative HPI Narrative: IRLANDA LANDA, is a 78 F who presented to the emergency room after going to her primary care physician's office with complaints of shortness of breath which has been going on for 3 to 4 weeks. She apparently did an EKG which demonstrated a left bundle branch block and there was no EKG for comparison other than 2013 and therefore decided that this was a new change and so sent her to the emergency room. In the emergency room she denied any chest pain shortness of breath at rest no dizziness no diaphoresis no near-syncope or syncope. A troponin level was obtained and was noted to be elevated and with a left bundle branch block which was presumably new for him at least 10 years ago cardiology was called for further evaluation and management. She has not had any exertional chest pain though she has had exertional shortness of breath. She does have a history of hypertension, hyperlipidemia, under control. [facility] Medical History (Updated 12/28/23 @ 08:[address] Dawson Esquivel MD) Anxiety Depression Former smoker Hypertension Anxiety and depression HLD (hyperlipidemia) Lupus H/O Sjogren's disease Obesity Diabetes Fibromyalgia Arthritis Personal history of colonic polyps Cholelithiasis with chronic cholecystitis Abnormal mammogram of left breast HTN (hypertension) History of breast cancer History of DVT (deep vein thrombosis) GERD (gastroesophageal reflux disease) ROSEANNE (obstructive sleep apnea) Home Medications ?Medication ?Instructions ?Recorded ?Last Taken ?Type alprazolam 0.5 mg tablet 0.25 - 0.5 mg PO DAILY PRN Anxiety 01/03/15 12/27/23 History hydrochlorothiazide 25 mg tablet 25 mg PO DAILY HTN 01/03/15 12/26/23 History atorvastatin 40 mg tablet (Lipitor) 40 mg PO QHS 06/10/17 12/26/23 History famotidine 40 mg tablet (Pepcid) 40 mg PO QHS REFLUX 06/10/17 12/26/23 History metformin 500 mg tablet,extended 500 mg PO DAILY 11/06/20 12/26/23 History release 24 hr pantoprazole 40 mg tablet,delayed 40 mg PO DAILY #14 tabs 11/21/23 12/26/23 Rx release (Protonix) carvedilol 12.5 mg tablet 12.5 mg PO BID 12/27/23 12/26/23 History escitalopram oxalate 10 mg tablet 20 mg PO DAILY 12/27/23 12/26/23 History levothyroxine 137 mcg tablet 137 mcg PO DAILY 12/27/23 12/27/23 History Allergy/AdvReac Type Severity Reaction Status Date / Time cefdinir Allergy Mild THRUSH Verified 12/27/23 17:29 empagliflozin (From Allergy Mild YEAST Verified 12/27/23 17:29 Jardiance) INFECTION grass pollen Allergy Unknown Verified 12/27/23 17:28 amoxicillin (Amoxicillin) AdvReac Other Verified 12/27/23 17:28 nifedipine (From Procardia) AdvReac Rash Verified 12/27/23 17:28 sulfamethoxazole (From AdvReac Other Verified 12/27/23 17:28 Bactrim) trimethoprim (From Bactrim) AdvReac Other Verified 12/27/23 17:28 Family History Mother CAD (coronary artery disease) Sister Breast cancer Hypertension Father CAD (coronary artery disease) Surgical History History of appendectomy History of liver biopsy Hx of cholecystectomy Status post left breast lumpectomy Status post left breast biopsy Social History Smoking Status: Never smoker second hand exposure: No alcohol intake: never substance use type: does not use caffeine: Yes what type of physical activity do you participate in: none frequency: does not exercise ROS Constitutional Constitutional: Denies fever(s) or weight loss Eyes Eyes: Reports systems reviewed and no addt'l complaints, except as documented ENT HEENT: Reports systems reviewed and no addt'l complaints, except as documented Cardiovascular Cardiovascular: Denies chest pain at rest, chest pain with activity, dyspnea at rest, dyspnea on exertion, edema, palpitations or paroxysmal nocturnal dyspnea Respiratory/Chest Respiratory/Chest: Denies dyspnea on exertion, productive cough, shortness of breath at rest or shortness of breath with exertion Gastrointestinal Gastrointestinal: Denies change in bowel habits, nausea, vomiting or weight changes Genitourinary Genitourinary: Denies difficulty urinating Musculoskeletal Musculoskeletal: Denies joint stiffness or muscle weakness Integumentary Integumentary: Denies lesions Neurologic Neurologic: Denies dizziness or syncope Psychiatric Psychiatric: Denies anxiety Endocrine Endocrinology: Denies excessive sweating or fatigue Hematologic/Lymphatic Hematologic/Lymphatic: Denies anemia Allergic/Immunologic Allergic/Immunologic: Denies seasonal rhinorrhea Physical Exam Const alert, oriented x3 and no apparent distress General Appearance: cooperative HEENT hearing grossly normal bilaterally Head and Scalp: atraumatic Eyes EOMs intact bilaterally Neck General: normal visual inspection Chest inspection of chest normal and palpation of chest normal Resp normal respiratory effort Auscultation: clear to auscultation bilaterally Cardio regular rate, regular rhythm, S1 normal heart sound and S2 normal heart sound Jugular Venous Distention: JVD GI normal to inspection, nondistended, normoactive bowel sounds Extremity normal capillary refill and no pedal edema Peripheral Pulses: Yes pulses 2+ throughout and femoral pulses present Skin no rashes or lesions noted Neuro oriented x3 and CN's II-XII intact bilaterally Psych Appearance: grossly normal and appropriate Risk Stratification Risk Stratification Applicable: Yes Age >/= 65: Yes >/= 3 CAD Risk Factors (HTN, HLD, DM, family hx of CAD, or current smoker): Yes Aspirin Use in the Past 7 Days: No Severe Angina (>/= episodes in 24 hours): No EKG ST Changes >/= 0.5mm: No Positive Cardiac Marker: Yes BRITNEY Risk Stratification Score: 3 BRITNEY % Risk: 13% Risk Objective Data Vital Signs: Vital Signs Temp Pulse Resp BP Pulse Ox O2 Del Method O2 Flow Rate 98 F 76 16 118/60 97 Nasal Cannula 2 12/28/23 01:55 12/28/23 01:55 12/28/23 01:55 12/28/23 01:55 12/28/23 01:55 12/28/23 04:00 12/28/23 04:00 Oxygen Flow Rate (L/min) 2 Oxygen Delivery Method Nasal Cannula Weight: 238 lb 8.642 oz Body Mass Index (BMI) 40.9 Intake & Output: Intake and Output for Last 24 Hours 12/26/23 12/27/23 12/28/23 23:59 23:59 23:59 Intake Total 1085 / 1085 Output Total 400 / 400 Balance 685 / 685 Lab / Micro Data 12/28/23 05:59 12/28/23 05:59 Labs: Laboratory Results - last 24 hr 12/27/23 17:45: WBC 7.5, RBC 4.44, Hgb 12.9, Hct 40.5, MCV 91.2, MCH 29.1, MCHC 31.9 L, RDW Std Deviation 44.2 H, RDW Coeff of Itzel 13.3, Plt Count 245, MPV 10.8, Immature Gran % (Auto) 0.400, Neut % (Auto) 60.4, Lymph % (Auto) 30.7, Whitfield % (Auto) 5.8, Eos % (Auto) 2.3, Baso % (Auto) 0.4, Absolute Neuts (auto) 4.5, Absolute Lymphs (auto) 2.29, Nucleated RBC % 0, D-Dimer Quant (PE/DVT) 0.91 H*, Sodium 139, Potassium 4.1, Chloride 103, Carbon Dioxide 29.0, Anion Gap 7, BUN 18, Creatinine 0.66, Estim Creat Clear Calc 71.08, Est GFR (MDRD) Af Amer 111, Est GFR (MDRD) Non-Af 91, BUN/Creatinine Ratio 27.1 H, Glucose 218 H, Calcium 9.9, Magnesium 2.3, Troponin I High Sens 247 H*, B-Natriuretic Peptide 56.7 12/27/23 20:40: Troponin I High Sens 226 H* 12/27/23 22:04: POC Glucose 136 H 12/27/23 23:37: Troponin I High Sens 247 H* 12/28/23 01:19: Procalcitonin 0.06 12/28/23 05:59: WBC 6.3, RBC 3.81 L, Hgb 11.0 L, Hct 35.5 L, MCV 93.2, MCH 28.9, MCHC 31.0 L, RDW Std Deviation 45.6 H, RDW Coeff of Itzel 13.3, Plt Count 202, MPV 10.2, Immature Gran % (Auto) 0.300, Neut % (Auto) 56.0, Lymph % (Auto) 34.2, Whitfield % (Auto) 5.8, Eos % (Auto) 3.2, Baso % (Auto) 0.5, Absolute Neuts (auto) 3.6, Absolute Lymphs (auto) 2.17, Nucleated RBC % 0, Sodium 140, Potassium 4.1, Chloride 108 H, Carbon Dioxide 29.0, Anion Gap 3 L, BUN 20 H, Creatinine 0.78, Estim Creat Clear Calc 70.75, Est GFR (MDRD) Af Amer 92, Est GFR (MDRD) Non-Af 76, BUN/Creatinine Ratio 25.5 H, Glucose 205 H, Calcium 9.1, Total Bilirubin 0.30, AST 13 L, ALT 18, Alkaline Phosphatase 65, Total Protein 6.5, Albumin 3.1 L, Globulin 3.4, Albumin/Globulin Ratio 0.9, Triglycerides 203 H, Cholesterol 127, LDL Cholesterol 51, VLDL Cholesterol 41 H, HDL Cholesterol 35 L 12/28/23 06:42: POC Glucose 208 H Micro: Microbiology 12/28/23 04:35 Urine, Clean Catch Legionella Antigen - Final 12/28/23 04:35 Urine, Clean Catch Streptococcus pneumoniae Antigen (M - Final Rhythm Strip Rhythm Strip: Sinus Rhythm Rate: 80 Ectopy: None Cardiology Labs/Tests 12/27/23 17:45: WBC 7.5, RBC 4.44, Hgb 12.9, Hct 40.5, MCV 91.2, MCH 29.1, MCHC 31.9 L, Plt Count 245, MPV 10.8, Immature Gran % (Auto) 0.400, Neut % (Auto) 60.4, Lymph % (Auto) 30.7, Whitfield % (Auto) 5.8, Eos % (Auto) 2.3, Baso % (Auto) 0.4, Absolute Neuts (auto) 4.5, Nucleated RBC % 0, D-Dimer Quant (PE/DVT) 0.91 H*, Sodium 139, Potassium 4.1, Chloride 103, Carbon Dioxide 29.0, Anion Gap 7, BUN 18, Creatinine 0.66, Est GFR (MDRD) Af Amer 111, Est GFR (MDRD) Non-Af 91, B UN/Creatinine Ratio 27.1 H, Glucose 218 H, Calcium 9.9, Magnesium 2.3, B- Natriuretic Peptide 56.7 12/28/23 05:59: WBC 6.3, RBC 3.81 L, Hgb 11.0 L, Hct 35.5 L, MCV 93.2, MCH 28.9, MCHC 31.0 L, Plt Count 202, MPV 10.2, Immature Gran % (Auto) 0.300, Neut % (Auto) 56.0, Lymph % (Auto) 34.2, Whitfield % (Auto) 5.8, Eos % (Auto) 3.2, Baso % (Auto) 0.5, Absolute Neuts (auto) 3.6, Nucleated RBC % 0, Sodium 140, Potassium 4.1, Chloride 108 H, Carbon Dioxide 29.0, Anion Gap 3 L, BUN 20 H, Creatinine 0.78, Est GFR (MDRD) Af Amer 92, Est GFR (MDRD) Non-Af 76, BUN/Creatinine Ratio 25.5 H, Glucose 205 H, Calcium 9.1, Total Bilirubin 0.30, Triglycerides 203 H, Cholesterol 127, LDL Cholesterol 51, VLDL Cholesterol 41 H, HDL Cholesterol 35 L Rhythm: EKG: ECHO: Stress Test: Cardiac Cath: PCI: CT Surgery: Holter monitor: EPS: PPM: CXR: Chest CT Scan: Radiography Diagnostic Testing: Radiology Impression Chest X-Ray 12/27/23 18:30 IMPRESSION: Degenerative changes, as described above. No demonstrated acute cardiopulmonary process. Electronically Signed: Jason Recinos MD at 19:33 EST , Chest CTA 12/27/23 19:55 IMPRESSION: CTA chest examination, without a demonstrated pulmonary embolism or arterial dissection. Right lower lobe pneumonia. Electronically Signed: Jason Recinos MD at 22:05 EST ,
[2023-12-28] MEDS: Pantoprazole Sodium 40 MG Tablet PO (09:27)
[2023-12-28] MEDS: Aspirin E.C. 81 MG Tablet PO (09:27)
[2023-12-28] MEDS: Carvedilol 12.5 MG Tablet PO (09:27)
[2023-12-28] MEDS: Escitalopram Oxalate 20 MG Tablet PO (09:27)
--- NOTE | 2023-12-28 09:59 | PN.HOSP_ITS ---
Reason for Visit Reason for Visit: Diagnoses Left bundle-branch block, unspecified (12/27/23) Chest pain, unspecified (12/27/23) Other specified abnormal findings of blood chemistry (12/27/23) Subjective Subjective Patient is a 78-year-old who who presented with exertional chest pain.. Imaging studies obtained demonstrated right lower lobe pneumonia. Patient was found to have elevated troponin admitted to a monitored bed with consultation placed to cardiology Objective Data Objective Data Vital Signs: Vital Signs Temp Pulse Resp BP Pulse Ox O2 Del Method O2 Flow Rate 97.6 F L 81 16 150/78 H 97 Nasal Cannula 2 12/28/23 09:04 12/28/23 09:04 12/28/23 09:04 12/28/23 09:04 12/28/23 09:04 12/28/23 09:04 12/28/23 09:04 Oxygen Flow Rate (L/min) 2 Oxygen Delivery Method Nasal Cannula Weight: 108.2 kg Body Mass Index (BMI) 40.9 Intake & Output: Intake and Output for Last 24 Hours 12/26/23 12/27/23 12/28/23 23:59 23:59 23:59 Intake Total 1085 / 1085 Output Total 400 / 400 Balance 685 / 685 Lab / Micro Data 12/28/23 05:59 12/28/23 05:59 Labs: Laboratory Results - last 24 hr 12/27/23 17:45: WBC 7.5, RBC 4.44, Hgb 12.9, Hct 40.5, MCV 91.2, MCH 29.1, MCHC 31.9 L, RDW Std Deviation 44.2 H, RDW Coeff of Itzel 13.3, Plt Count 245, MPV 10.8, Immature Gran % (Auto) 0.400, Neut % (Auto) 60.4, Lymph % (Auto) 30.7, Archuleta % (Auto) 5.8, Eos % (Auto) 2.3, Baso % (Auto) 0.4, Absolute Neuts (auto) 4.5, Absolute Lymphs (auto) 2.29, Nucleated RBC % 0, D-Dimer Quant (PE/DVT) 0.91 H*, Sodium 139, Potassium 4.1, Chloride 103, Carbon Dioxide 29.0, Anion Gap 7, BUN 18, Creatinine 0.66, Estim Creat Clear Calc 71.08, Est GFR (MDRD) Af Amer 111, Est GFR (MDRD) Non-Af 91, BUN/Creatinine Ratio 27.1 H, Glucose 218 H, Calcium 9.9, Magnesium 2.3, Troponin I High Sens 247 H*, B-Natriuretic Peptide 56.7 12/27/23 20:40: Troponin I High Sens 226 H* 12/27/23 22:04: POC Glucose 136 H 12/27/23 23:37: Troponin I High Sens 247 H* 12/28/23 01:19: Procalcitonin 0.06 12/28/23 05:59: WBC 6.3, RBC 3.81 L, Hgb 11.0 L, Hct 35.5 L, MCV 93.2, MCH 28.9, MCHC 31.0 L, RDW Std Deviation 45.6 H, RDW Coeff of Itzel 13.3, Plt Count 202, MPV 10.2, Immature Gran % (Auto) 0.300, Neut % (Auto) 56.0, Lymph % (Auto) 34.2, Archuleta % (Auto) 5.8, Eos % (Auto) 3.2, Baso % (Auto) 0.5, Absolute Neuts (auto) 3.6, Absolute Lymphs (auto) 2.17, Nucleated RBC % 0, Sodium 140, Potassium 4.1, Chloride 108 H, Carbon Dioxide 29.0, Anion Gap 3 L, BUN 20 H, Creatinine 0.78, Estim Creat Clear Calc 70.75, Est GFR (MDRD) Af Amer 92, Est GFR (MDRD) Non-Af 76, BUN/Creatinine Ratio 25.5 H, Glucose 205 H, Calcium 9.1, Total Bilirubin 0.30, AST 13 L, ALT 18, Alkaline Phosphatase 65, Total Protein 6.5, Albumin 3.1 L, Globulin 3.4, Albumin/Globulin Ratio 0.9, Triglycerides 203 H, Cholesterol 127, LDL Cholesterol 51, VLDL Cholesterol 41 H, HDL Cholesterol 35 L 12/28/23 06:42: POC Glucose 208 H Micro: Microbiology 12/28/23 04:35 Urine, Clean Catch Legionella Antigen - Final 12/28/23 04:35 Urine, Clean Catch Streptococcus pneumoniae Antigen (M - Final Radiography Diagnostic Testing: Radiology Impression Chest X-Ray 12/27/23 18:30 IMPRESSION: Degenerative changes, as described above. No demonstrated acute cardiopulmonary process. Electronically Signed: Jason Recinos MD at 19:33 EST , Chest CTA 12/27/23 19:55 IMPRESSION: CTA chest examination, without a demonstrated pulmonary embolism or arterial dissection. Right lower lobe pneumonia. Electronically Signed: Jason Recinos MD at 22:05 EST , Rhythm Strip Rhythm Strip: Sinus Rhythm Rate: 80 Ectopy: None Physical Exam Narrative GENERAL: cooperative HEENT: Atraumatic; normocephalic EYES; Anicteric, Normal Conjunctiva NECK; supple, normal thyroid, RESPIRATORY: Diminished to auscultation CARDIOVASCULAR: Regular S1 S2, GI: soft, normoactive bowel sounds, : No Renal angle tenderness; EXTREMITIES: No edema, no clubbing, MUSCULOSKELETAL: no muscle wasting NEURO: Awake; no lateralizing signs. SKIN: No Rash PSYCH; Flat affect Assessment & Plan Assessment/Plan (1) New onset left bundle branch block (LBBB): (2) Chest pain, unspecified: (3) Elevated troponin: PLAN: Plan Patient is a 78-year-old who who presented with exertional chest pain.. Imaging studies obtained demonstrated right lower lobe pneumonia. Patient was found to have elevated troponin admitted to a monitored bed with consultation placed to cardiology 1. Pneumonia - Suspected to be secondary to streptococcal pneumonia, Blood and sputum cultures sent. Patient placed on Rocephin and Zithromax and placed on oxygen titrated to keep Pulse Ox greater than 90 2. Elevated troponin ?? Demand ischemia from patient's pneumonia. Patient admitted to a monitored bed treatment initiated per protocol consult placed to cardiology plan is for patient to undergo left heart cath diagnostic with intervention if warranted 3. Class III obesity with BMI of 41 ? Complicating care weight loss advised 4. Dyslipidemia ?Patient is on statin therapy, continued at home dose 5. Hypertension ? Blood pressure controlled, home medications continued with dose adjustment as needed 6. Depression with anxiety ? Patient is on escitalopram did continue 7. Sjogren's disease and lupus ? Patient to follow-up with her industrial equipment wirer as outpatient 8. History of left-sided breast CVA ? Patient was treated with surgery with radiation has since remained in remission 9. Hypothyroidism ? Patient is on levothyroxine home dose continued 10. Diabetes mellitus type 2 The patient is on metformin held on admission placed on Accu-Cheks ACHS with sliding scale coverage 11. GERD This patient is on PPI encouraged 12. Obstructive sleep apnea ? Consistent use of PAP therapy encourage 13. DVT prophylaxis ? Lovenox Time spent in the patient's overall evaluation,decision-making process, review of diagnostic data, adjustment of management, discussion with other providers, nursing nursing and ancillary staff involved in patient's care documentation, 50 Minutes Charges/Coding Visit Charges Inpatient E&M: [id number] [facility] L3
[2023-12-28 11:31] LABS: Bedside Glucose 245 mg/dL (74-106)
--- NOTE | 2023-12-28 11:57 | NURSING ---
Report handoff called to cardiac cath lab manager, no further questions at this time
--- NOTE | 2023-12-28 12:59 | CL.D_ITS ---
Patient Name: IRLANDA LANDA Study Date: 12/28/2023 Performing: Dawson Esquivel MD Ht: 64 inches 162.56 cm : 1945 Wt: 238.54 lbs 108.2 kg Age: 78 Gender: female BSA: 2.11 PROCEDURE(S) PERFORMED DC01-(08910)LHC/COR/LV IC12-(10357/C9600)VANESSA W/WO PTCA, SINGLE CORONARY ARTERY CLINICAL PROFILE AND INDICATIONS Indications: Suspected CAD Heart Failure: None Stress/Imaging Stress/Image Study Performed: No CAD Presentations: Other: SOB CONCLUSIONS Moderate severe right coronary artery stenosis mild LAD stenosis mildly reduced ejection fraction RECOMMENDATIONS Referred for immediate PCI DESCRIPTION OF PROCEDURE The patient arrived to the procedure lab. The risks and benefits of the procedure as well as a full description of our services here and current unavailability of surgical backup were fully explained to the patient and/or their significant other prior to the catheterization. The Timeout was completed, verifying the correct patient and procedure. The patient's procedural site was prepped and draped in the usual fashion. Local anesthetic was given subcutaneously to right radial region with Lidocaine 2%. Using a modified Seldinger technique, arterial access was obtained via the right radial artery, a 6Fr sheath was inserted. Right Coronary Artery selective angiography was then performed in multiple views using a 5 Fr. 4.0 Mcgregor catheter. Left Coronary Artery selective angiography was performed in multiple views using a 5 Fr. 4.0 Mcgregor catheter. Left Ventriculography was performed in CONTRERAS projection using a 5 Fr. Pigtail catheter. LV to AO pullback pressures were then recorded. CORONARY ANGIOGRAPHY DOMINANCE: Right Dominant LEFT HEART ASSESSMENT Anterior Hypokinesis - Mild Depressed Left Ventricular systolic function LEFT MAIN: No significant disease noted LEFT ANTERIOR DESCENDING ARTERY: Mild luminal irregularities less than 30% CIRCUMFLEX ARTERY: Mild luminal irregularities less than 30% RIGHT CORONARY ARTERY: Is a dominant vessel with 60 to 70% proximal and mid segment stenosis and mild to distal disease. COMPLICATIONS PROCEDURE MEDICATIONS Versed 1 mg IV Fentanyl 50 mcg IV Oxygen: 2 L/min via nasal cannula Brilinta 180 mg PO @ 12/28/2023 12:48:16 Heparin given IA 12/28/2023 12:25:33 Heparin 5000 unit(s) IV 12/28/2023 12:49:50 Verapamil 2.5mg, Ntg 100mcgs, 3000 units of Heparin given IA 12/28/2023 12:25:33 SUMMARY OF HEMODYNAMIC DATA Time AIR REST ECG 12:13:34 AO 125/48 (78) SA 12:29:39 AO 121/55 (85) 12:32:59 LV 140/-14, -1 12:39:57 LV 142/-14, 0 12:40:03 LV 144/-15, 2 12:40:29 LV 142/-13, 2 12:40:36 LVp 140/-13, 3 12:40:39 AOp 144/41 (84) 12:40:44 AIR REST 12:51:24 AIR REST AO 161/71 (106) 12:51:31 Signed By Dawson Esquivel MD On 12/28/2023 12:59:18 Dawson Esquivel MD
--- NOTE | 2023-12-28 13:30 | EKG12_ITS ---
Test Reason : PCI Blood Pressure : */* mmHG Vent. Rate : 79 BPM Atrial Rate : 79 BPM P-R Int : 176 ms QRS Dur : 148 ms QT Int : 446 ms P-R-T Axes : -23 -37 116 degrees QTcB Int : 511 ms Normal sinus rhythm Left axis deviation Left bundle branch block Abnormal ECG When compared with ECG of 27-Dec-2023 21:00, MANUAL COMPARISON REQUIRED DATA IS UNCONFIRMED Confirmed by BRITANY PADRON, LOTTIE ([id number]), website/blog editor JACKSON SHIELDS ([id number]) on 12/29/2023 6:17:30 AM Referred By: BRITANY Confirmed By: LOTTIE GARG MD
--- NOTE | 2023-12-28 15:10 | CASEMGMT ---
NATASHA LYLE Assessment Face to Face with patient for initial transition planning/care coordination assessment. NATASHA LYLE introduced self and role at [facility], pt voices understanding. Pt is A&Ox4 and is resting comfortably in bed and is calm. Care providers, pharmacy, and demographics verified. Admitting dx: CP, Dyspnea, Elevated Trop LACE Strata: 2 PCP:[facility] Specialists: denies Preferred Pharmacy[facility] Insurance: [facility] A/B Prescription Benefit: Yes LNOK: Mark Bosch (H), Iman Connolly (Milagros) Living Arrangements: Pt lives with her in a single story home with a basement (but does not go down) and 3 steps to enter the home ADLs/IADLs: Reports ind Transportation: Self, DME: [employer]. FWW. Pt may qualify for home oxygen, a verbal list of local in-network DME companies provided to the pt at this time. Prefers [facility]. Pt also reports that she does not have a BGM at home. Pt states that she would like an Rx for this with supplies. HHC/SNF: Denies HH/SNF Hx. Reports Hx at [facility] for OP Tx Pt?s goal: Home Plan: Home with DME, Blood thinner, and f/u with the [facility] Cardiac Rehab program. 6-Click is 22. Pt denies further needs, concerns, or questions at this time. The pt has been provided with the needed information regarding the cardiac rehab program. Report given to PARAPROFESSIONAL AIDE TEACHER CM. Patricia Coles RN, CM
[2023-12-28] MEDS: ALPRAZolam 0.25 MG Tablet PO (15:15)
--- NOTE | 2023-12-28 15:32 | CHAPLAIN ---
Type of Pastoral Visit ___ Initial Visit ___ Follow-up Visit ___ On-call Visit ___ General Patient Visit ___ Spiritual Assessment ___ Family Conference ___ Bereavement ___ Rapid Response ___ Code Blue ___ Other (describe below) Pastoral Care Referral From ___ Patient ___ Family ___ Nurse ___ Physician ___ Supplier Relationship Director ___ Bundle Breaker ___ Other (describe below) Sacrament/Intervention ___ Active listening ___ Anointing ___ Confucianist ___ Bereavement ___ Communion ___ Carmela exploration ___ ___ Life review ___ Prayer ___ Reconciliation ___ Sacrament of Sick ___ Supportive presence ___ Wedding ___ Other (describe below) Pastoral Comments patient and bed are out of the room; left a calling card
[2023-12-28 16:47] LABS: Bedside Glucose 246 mg/dL (74-106)
[2023-12-28] MEDS: Enoxaparin 40 MG/0.4 ML Syringe SC (21:26)
[2023-12-28] MEDS: TICAGRELOR 90 MG TABLET PO ×2 (21:27)
[2023-12-28] MEDS: Famotidine 20 MG Tablet 40 MG PO (21:27)
[2023-12-28] MEDS: Atorvastatin Calcium 40 MG Tablet PO (21:28)
[2023-12-28] MEDS: ALPRAZolam 0.5 MG Tablet PO (21:38)
[2023-12-28 22:29] LABS: Bedside Glucose 214 mg/dL (74-106)
[2023-12-29 05:00] VITALS: BP 151/68; PULSE 82; RESP 18; TEMP 35.6; O2SAT 99
[2023-12-29] MEDS: Levothyroxine 137 MCG Tablet PO (05:23)
[2023-12-29] MEDS: Insulin Lispro 100 UNIT/ML INSULN.PEN SC ×2 (06:06→11:31)
[2023-12-29 06:33] LABS: Bedside Glucose 218 mg/dL (74-106)
[2023-12-29 07:14] LABS: Absolute Neutrophil Count 4.1 X10^3/uL (2.0-7.7); Basophil# 0.04 X10^3/uL; Basophil% 0.6 % (0-1); Eosinophils% 3.2 % (0-5); Hematocrit 36.6 % (37-47); Hemoglobin 11.8 g/dL (12.0-15.0); Lymphocyte % 23.7 % (19-41); Mean Corp Hgb Conc 32.2 g/dL (32-36); Mean Corpuscular Hgb 29.6 pg (27.0-32.0); Mean Corpuscular Volume 91.7 fL (81-99); Mean Platelet Vol. 10.4 fl (6.2-12.0); Monocyte# 0.46 X10^3/uL; Monocyte% 7.3 % (0-10); NRBC Flagged by Analyzer 0 % (0-5); Neutrophil % 64.6 % (47-70); Platelet Count 242 K/mm3 (150-450); RBC Distribution Width CV 13.4 % (11.6-14.6); RBC Distribution Width SD 45.1 fl (35.1-43.9); Red Blood Count 3.99 M/mm3 (4.2-5.4); White Blood Count 6.3 K/mm3 (4.4-11.0)
--- NOTE | 2023-12-29 07:39 | PCM.PN.CARD ---
Subjective Subjective Patient seen and evaluated. Doing well. Does not like the bed. Objective Data Vital Signs: Vital Signs Temp Pulse Resp BP Pulse Ox O2 Del Method O2 Flow Rate 96.0 F L 82 18 151/68 H 99 Nasal Cannula 3 12/29/23 05:00 12/29/23 05:00 12/29/23 05:00 12/29/23 05:00 12/29/23 05:00 12/29/23 05:00 12/29/23 05:00 Oxygen Flow Rate (L/min) 3 Oxygen Delivery Method Nasal Cannula Weight: 238 lb 8.642 oz Body Mass Index (BMI) 40.9 Intake & Output: Intake and Output for Last 24 Hours 12/27/23 12/28/23 12/29/23 23:59 23:59 23:59 Intake Total 1135 / 1135 255 / 255 Output Total 600 / 600 Balance 535 / 535 255 / 255 Lab / Micro Data 12/29/23 06:43 12/28/23 05:59 Labs: Laboratory Results - last 24 hr 12/28/23 11:09: POC Glucose 245 H 12/28/23 16:03: POC Glucose 246 H 12/28/23 21:19: POC Glucose 214 H 12/29/23 06:03: POC Glucose 218 H 12/29/23 06:43: WBC 6.3, RBC 3.99 L, Hgb 11.8 L, Hct 36.6 L, MCV 91.7, MCH 29.6, MCHC 32.2, RDW Std Deviation 45.1 H, RDW Coeff of Itzel 13.4, Plt Count 242, MPV 10.4, Immature Gran % (Auto) 0.600, Neut % (Auto) 64.6, Lymph % (Auto) 23.7, [place] % (Auto) 7.3, Eos % (Auto) 3.2, Baso % (Auto) 0.6, Absolute Neuts (auto) 4.1, Absolute Lymphs (auto) 1.50, Nucleated RBC % 0 Micro: Microbiology 12/28/23 02:30 Mucosa - Nasopharyngeal Respiratory Panel (PCR) - Final 12/28/23 04:35 Urine, Clean Catch Legionella Antigen - Final 12/28/23 04:35 Urine, Clean Catch Streptococcus pneumoniae Antigen (M - Final Rhythm Strip Rhythm Strip: Sinus Rhythm Rate: 80 Ectopy: None Cardiology Labs/Tests 12/29/23 06:43: WBC 6.3, RBC 3.99 L, Hgb 11.8 L, Hct 36.6 L, MCV 91.7, MCH 29.6, MCHC 32.2, Plt Count 242, MPV 10.4, Immature Gran % (Auto) 0.600, Neut % (Auto) 64.6, Lymph % (Auto) 23.7, [place] % (Auto) 7.3, Eos % (Auto) 3.2, Baso % (Auto) 0.6, Absolute Neuts (auto) 4.1, Nucleated RBC % 0 Rhythm: EKG: ECHO: Stress Test: Cardiac Cath: PCI: CT Surgery: Holter monitor: EPS: PPM: CXR: Chest CT Scan: Radiography Diagnostic Testing: Radiology Impression Echocardiogram 12/27/23 21:07 Interpretation Summary The left ventricular ejection fraction is 50 %. Normal LV size. Left ventricular systolic function is normal. Septal [place] : Hypokinetic Ordering Physician: Keysha Torres Referring Physician: Radha Velarde Performed By: Mariah Moses, RDCS, RVT Physical Exam Const alert, oriented x3 and no apparent distress General Appearance: cooperative HEENT hearing grossly normal bilaterally Head and Scalp: atraumatic Eyes EOMs intact bilaterally Neck General: normal visual inspection Chest inspection of chest normal and palpation of chest normal Resp normal respiratory effort Auscultation: clear to auscultation bilaterally Cardio regular rate, regular rhythm, S1 normal heart sound and S2 normal heart sound Jugular Venous Distention: JVD GI normal to inspection, nondistended, normoactive bowel sounds Extremity normal capillary refill and no pedal edema Peripheral Pulses: Yes pulses 2+ throughout and femoral pulses present Skin no rashes or lesions noted Neuro oriented x3 and CN's II-XII intact bilaterally Psych Appearance: grossly normal and appropriate Assessment & Plan Assessment/Plan (1) Elevated troponin: PLAN: She does have an elevated troponin the etiology of which was not very clear. She underwent coronary artery evaluation with a heart catheterization which demonstrated a moderately severe stenosis of the proximal right coronary artery for which she underwent angioplasty and stenting. Hopefully this will improve her symptomatology. She will remain on aspirin and ticagrelor and cardiac rehabilitation. From the cardiac standpoint she can be discharged for outpatient follow-up. (2) MEDINA (dyspnea on exertion): PLAN: She does have dyspnea on exertion the etiology of which is not entirely clear. She does have a mild cardiomyopathy. She says that she did not tolerate the SGLT 2 or GLP-1 agonists. (3) Hypertension: PLAN: She does have a history of hypertension her blood pressure is under good control I would not recommend we make any changes. (4) New onset left bundle branch block (LBBB): PLAN: She does have a left bundle branch block the duration of which is unclear. Her last previous EKG was from 2013. It is also possible that some of her echocardiographic changes are from the left bundle branch block. Thank you for allowing me to participate in the care of your patient. Please don't hesitate to call if any issues arise.
--- NOTE | 2023-12-29 07:47 | CRPHASE1_ITS ---
Patient Communication Patient Information Former Patient:: Phase I PHII Cardiac Rehab Discussed with Patient:: Yes Guide to Cardiac Rehab Given to Patient:: Yes Cardiac Rehab Facility Choice List Given to Patient:: Yes Communication to Cardiac Rehab Choice Program [facility] PHII:: Communication Given to CR Sessions:: 36 sessions - 3 days/wk, 12 weeks Cardiac Rehabilitation Info Program Information Cardiac Rehabilitation Program Information: Cardiac Rehab The cardiac rehab team at [facility] consists of highly skilled exercise physiologists, nurses, respiratory therapists and physicians working together with you. Our purpose is to help you have a full recovery and achieve the goals you set for yourself. Over the years many of our patients have returned to activities they assumed they would never do again! We can help restore your confidence and motivation to make lifestyle changes that can have a significant impact on your health and quality of life! We can help answer questions and concerns you may have about exercise, lifestyle, medications, diet, stress and anxiety which are common following a hospitalization. WE monitor ECG and vital signs during exercise and discuss your progress with you and report to your physician(s). Cardiac Rehab is proven to help reduce readmissions, improve functional capacity and lower recurrence of problems with your heart. Our Cardiac Rehab program is Certified by the [place] [employer] (AACVPR) and Accredited by the [employer] through our [facility]. You can contact us at . We invite you to call us with your questions or to get started in our program. If you have other questions or concerns be sure to ask your physician/provider during your follow-up visit. WE look forward to seeing you!
--- NOTE | 2023-12-29 07:52 | CRPH1.INSTRU ---
General Education Discussed with Patient CAD and cardiac anatomy and function:: Patient communicates acknowledgment Explanation of diagnoses and procedures:: Patient communicates acknowledgment Sign/Symptoms of [place]:: Patient communicates acknowledgment Antiplatelet therapy: Patient communicates acknowledgment Proper use of NTG-SL: Patient communicates acknowledgment Emergency procedures and activation of EMS: Patient communicates acknowledgment Compliance of all prescribed medications: Patient communicates acknowledgment Smoking Risk Factors Patient Nicotine/Smoking Risk Factors Are:: Never smoked Recommendations Recommendations Include:: Second-hand smoke recommendation Response Code Nicotine/Smoking Response Code:: Patient communicates acknowledgment Dyslipidemia Risk Factors Patient Dyslipidemia Risk Factors Are:: Total Cholesterol, Triglycerides, HDL and LDL Recommendations Recommendations Include:: Lipid profile not available, Reviewed NCEP/ATP guidelines and Therapeutic Lifestyle Change dietary guidelines Response Code Dyslipidemia Response Code:: Patient communicates acknowledgment Overweight/Obesity Risk Factors Patient Overweight/Obesity Risk Factors Are:: Overweight = 26-29 and Obesity - > or = 30 Recommendations Recommendations Include:: Weight loss of 5-10%, Reduced calorie diet and Exercise 5-7 times/week Response Code Overweight/Obesity:: Patient communicates acknowledgment Hypertension Recommendations Recommendations Include:: Maintain BP <130/85, BP <130/80 if diabetic, DASH dietary guidelines, Decrease/maintain normal body weight and Moderation of ETOH Response Code Hypertension:: Patient communicates acknowledgment Heart Disease Recommendations Recommendations Include:: Educated family members of their risk and Educated family members of importance of prevention of heart disease Response Code Heart Disease Response Code:: Patient communicates acknowledgment Diabetes Risk Factors Patient Diabetes Risk Factors Are:: Elevated blood sugars and Post-op hyperglycemia Recommendations Recommendations Include:: Maintain fasting blood sugars 70-110 md/dL, Maintain HgbA1c of 6% or less, Monitor blood sugar as prescribed, Diabetic dietary guidelines and Decrease/maintain body weight Response Code Diabetes:: Patient communicates acknowledgment Metabolic Syndrome Risk Factors Patient Metabolic Syndrome Risk Factors Are [3 of 5]:: Fasting blood sugar > 100 mg/dL, Waist circumference > 35 [female] or 40 [male], High triglyceride >150, Hypertension and Low HDL <40 [male] or < 50 [female] Recommendations Recommendations Include:: Reinforce compliance to risk factor modifications, Patient is diabetic and Encouraged follow-up with Primary Care Physician Response Code Metabolic Syndrome Response Code:: Patient communicates acknowledgment Sedentary Risk Factors Patient Sedentary Risk Factors Are:: Lack of regular exercise Recommendations Recommendations Include:: Aerobic exercise 5-7 times/week for 20-30 minutes continuously, Benefits of regular exercise, Discussed home walking program and Monitored Outpatient Cardiac Rehab Response Code Sedentary Response Code:: Patient communicates acknowledgment Stress Risk Factors Patient Stress Risk Factors Are:: Patient denies stress as a risk factor Recommendations Recommendations Include:: Identification of stressors, and assessment of coping skills and Stress management techniques Response Code Stress Response Code:: Patient communicates acknowledgment
[2023-12-29 07:59] LABS: ALB/GLOB Ratio 0.9 RATIO (0.9-2.4); AST(SGOT) 16 U/L (15-37); Alanine Aminotransfer ALT/SGPT 17 U/L (13-56); Albumin, Serum 3.4 g/dL (3.2-5.0); Alkaline Phosphatase 71 U/L (45-117); Anion Gap 6 (5-15); BUN 23 mg/dL (7-18); BUN/Creat Ratio 39.7 RATIO (10-20); Calcium,Total 9.3 mg/dL (8.5-10.1); Chloride 107 mmol/L (98-107); Creatinine, Serum 0.58 mg/dL (0.55-1.02); EST Glomerular Filtration Rate 107 mL/min (>60); Est Glom Filt Rate - Afr Amer 130 mL/min (>60); Estimated Creatinine Clearance 70.75 ml/min; Globulin 3.7 g/dL (2.2-4.2); Glucose 224 mg/dL (74-106); Magnesium 1.9 mg/dL (1.6-2.6); Phosphorus 3.1 mg/dL (2.5-4.9); Potassium 3.6 mmol/L (3.5-5.1); Protein, Total 7.1 g/dL (6.4-8.2); Sodium Level 138 mmol/L (136-145)
[2023-12-29] MEDS: Aspirin E.C. 81 MG Tablet PO (08:11)
[2023-12-29] MEDS: Carvedilol 12.5 MG Tablet PO (08:12)
[2023-12-29] MEDS: Escitalopram Oxalate 20 MG Tablet PO (08:12)
[2023-12-29] MEDS: Pantoprazole Sodium 40 MG Tablet PO (08:13)
[2023-12-29] MEDS: hydroCHLOROthiazide 25 MG Tablet PO (08:13)
[2023-12-29] MEDS: TICAGRELOR 90 MG TABLET PO (08:13)
--- NOTE | 2023-12-29 10:00 | EKG12_ITS ---
Test Reason : AM EKG Blood Pressure : */* mmHG Vent. Rate : 84 BPM Atrial Rate : 84 BPM P-R Int : 182 ms QRS Dur : 152 ms QT Int : 436 ms P-R-T Axes : 36 -33 108 degrees QTcB Int : 515 ms Normal sinus rhythm Left axis deviation Left bundle branch block Abnormal ECG When compared with ECG of 28-Dec-2023 13:55, MANUAL COMPARISON REQUIRED DATA IS UNCONFIRMED Confirmed by YASIR PADRON, JOHANA ([id number]), videotape editor JACKSON SHIELDS ([id number]) on 12/29/2023 1:52:16 P M Referred By: LLUVIA Confirmed By: JOHANA COOLEY MD
--- NOTE | 2023-12-29 10:08 | DS.PCM_ITS ---
Providers Date of Admission: 12/27/23 Date of Discharge: 12/29/23 Primary Care Physician: Dr. Radha Velarde MD Consultations 12/27/23 21:07 Consult: Cardiology Routine Consulting Provider: Dawson Esquivel Reason for Consult: Chest Pain, elevated troponin EMERGENT Consult: No MD Notified: Yes Date Notified: 12/27/23 Time Notified: 19:50 Method of Notification: ED Physician Initiated Reason For Visit: CHEST PAIN, DYSPNEA, ELEVATED TROP Diagnosis Discharge Diagnosis (1) Elevated troponin: Status: Acute Code(s): R79.89 - Other specified abnormal findings of blood chemistry (2) MEDINA (dyspnea on exertion): Status: Acute Code(s): R06.09 - Other forms of dyspnea (3) Hypertension: Status: Chronic Code(s): I10 - Essential (primary) hypertension (4) New onset left bundle branch block (LBBB): Status: Acute Code(s): I44.7 - Left bundle-branch block, unspecified Plan Patient is a 78-year-old who who presented with exertional chest pain.. Imaging studies obtained demonstrated right lower lobe pneumonia. Patient was found to have elevated troponin admitted to a monitored bed with consultation placed to cardiology 1. Pneumonia - Suspected to be secondary to streptococcal pneumonia, Blood and sputum cultures sent. Patient placed on Rocephin and Zithromax and placed on oxygen titrated to keep Pulse Ox greater than 90 2. Elevated troponin secondary to acute non-STEMI type I ? Patient admitted to a monitored bed treatment initiated per protocol consult placed to cardiology plan is for patient to undergo left heart cath diagnostic with intervention if warranted ? Patient underwent left heart catheterization with VANESSA and PCI to RCA lesion. Discharge on guideline directed medical. 2D echo report as below The left ventricular ejection fraction is 50 %. Normal LV size. Left ventricular systolic function is normal. Septal [place] : Hypokinetic 3. Class III obesity with BMI of 41 ? Complicating care weight loss advised 4. Dyslipidemia ?Patient is on statin therapy, continued at home dose 5. Hypertension ? Blood pressure controlled, home medications continued with dose adjustment as needed 6. Depression with anxiety ? Patient is on escitalopram did continue 7. Sjogren's disease and lupus ? Patient to follow-up with her order entry specialist as outpatient 8. History of left-sided breast CVA ? Patient was treated with surgery with radiation has since remained in remission 9. Hypothyroidism ? Patient is on levothyroxine home dose continued 10. Diabetes mellitus type 2 The patient is on metformin held on admission placed on Accu-Cheks ACHS with sliding scale coverage 11. GERD This patient is on PPI encouraged 12. Obstructive sleep apnea ? Consistent use of PAP therapy encourage 13. DVT prophylaxis ? Lovenox Time spent in the patient's overall evaluation,decision-making process, review of diagnostic data, adjustment of management, discussion with other providers, nursing nursing and ancillary staff involved in patient's care documentation, 35 minutes Medications at Discharge Home Medications alprazolam 0.5 mg tablet 0.25 - 0.5 mg PO DAILY PRN Anxiety 01/03/15 hydrochlorothiazide 25 mg tablet 25 mg PO DAILY HTN 01/03/15 atorvastatin 40 mg tablet (Lipitor) 40 mg PO QHS 06/10/17 famotidine 40 mg tablet (Pepcid) 40 mg PO QHS REFLUX 06/10/17 metformin 500 mg tablet,extended release 24 hr 500 mg PO DAILY 11/06/20 pantoprazole 40 mg tablet,delayed release (Protonix) 40 mg PO DAILY #14 tabs 11/21/23 carvedilol 12.5 mg tablet 12.5 mg PO BID 12/27/23 escitalopram oxalate 10 mg tablet 20 mg PO DAILY 12/27/23 levothyroxine 137 mcg tablet 137 mcg PO DAILY 12/27/23 aspirin 81 mg tablet,delayed release 81 mg PO BREAKFAST 90 days #90 tabs 12/29/23 levofloxacin 750 mg tablet 750 mg PO DAILY #5 tabs 12/29/23 ticagrelor 90 mg tablet (Brilinta) 90 mg PO BID 90 days #180 tabs 12/29/23 Physical Exam Narrative GENERAL: cooperative HEENT: Atraumatic; normocephalic EYES; Anicteric, Normal Conjunctiva NECK; supple, normal thyroid, RESPIRATORY: Diminished to auscultation CARDIOVASCULAR: Regular S1 S2, GI: soft, normoactive bowel sounds, : No Renal angle tenderness; EXTREMITIES: No edema, no clubbing, MUSCULOSKELETAL: no muscle wasting NEURO: Awake; no lateralizing signs. SKIN: No Rash PSYCH; Flat affect Weight / BMI Weight Weight: 108.2 kg Body Mass Index (BMI) 40.9 ABG / Lab / Microbiology Data 12/29/23 06:43 12/29/23 06:43 Laboratory: Laboratory Results - last 24 hr 12/28/23 11:09: POC Glucose 245 H 12/28/23 16:03: POC Glucose 246 H 12/28/23 21:19: POC Glucose 214 H 12/29/23 06:03: POC Glucose 218 H 12/29/23 06:43: WBC 6.3, RBC 3.99 L, Hgb 11.8 L, Hct 36.6 L, MCV 91.7, MCH 29.6, MCHC 32.2, RDW Std Deviation 45.1 H, RDW Coeff of Itzel 13.4, Plt Count 242, MPV 10.4, Immature Gran % (Auto) 0.600, Neut % (Auto) 64.6, Lymph % (Auto) 23.7, [place] % (Auto) 7.3, Eos % (Auto) 3.2, Baso % (Auto) 0.6, Absolute Neuts (auto) 4.1, Absolute Lymphs (auto) 1.50, Nucleated RBC % 0, Sodium 138, Potassium 3.6, Chloride 107, Carbon Dioxide 26.0, Anion Gap 6, BUN 23 H, Creatinine 0.58, Estim Creat Clear Calc 70.75, Est GFR (MDRD) Af Amer 130, Est GFR (MDRD) Non-Af 107, B UN/Creatinine Ratio 39.7 H, Glucose 224 H, Calcium 9.3, Phosphorus 3.1, Magnesium 1.9, Total Bilirubin 0.40, AST 16, ALT 17, Alkaline Phosphatase 71, Total Protein 7.1, Albumin 3.4, Globulin 3.7, Albumin/Globulin Ratio 0.9 Microbiology: Microbiology 12/28/23 02:30 Mucosa - Nasopharyngeal Respiratory Panel (PCR) - Final 12/28/23 04:35 Urine, Clean Catch Legionella Antigen - Final 12/28/23 04:35 Urine, Clean Catch Streptococcus pneumoniae Antigen (M - Final Radiography Diagnostic Testing: Radiology Impression Echocardiogram 12/27/23 21:07 Interpretation Summary The left ventricular ejection fraction is 50 %. Normal LV size. Left ventricular systolic function is normal. Septal [place] : Hypokinetic Ordering Physician: Keysha Torres Referring Physician: Radha Velarde Performed By: Mariah Moses, AJ, RVT D/C Instructions Discharge Diet: Low fat / Low cholesterol and 1800 Calorie Control Diet Discharge Activity: Return to Normal Activity Call your doctor if you observe: Fever of 101 or Higher, Shortness of breath, Fainting spells and Chest pain Meaningful Use Info Meaningful Use Meaningful Use Diagnoses (Choose all that apply): AMI AMI/Post PCI/Angioplasty Aspirin given w/in 24hrs of arrival?: Yes ASA at discharge?: Yes Antiplatelet Therapy at Discharge:: Yes Statins at discharge?: Yes Vu/ARB at discharge?: No Reason Vu/ARB not ordered:: Not indicated Beta Rudy at discharge?: Yes Done w/ Acute IA measure.: Yes Documented LVEF (%): 50 Ischemic Stroke Statin Dosing Therapy Reference: STATIN DOSE THERAPY REFERENCE: * Patients > 75 years receive moderate or high dose statin therapy. * Patients 75 years or YOUNGER should receive HIGH intensity statin dose unless contraindicated. You will be required to document reason for non-treatment if statin daily dose does not meet guidelines. HIGH DOSE STATIN THERAPY DAILY Atorvastatin > than or = to 40 mg Rosuvastatin > than or = to 20 mg Amlodipine + Atorvastatin > than or = to 2.5/40 mg Ezetimibe + Simvastatin 10/80 mg Simvastatin 80mg Discharge Plan Admission Admit Date/Time: 12/27/23 19:49 Attending Provider: Paolo Melara Primary Care Provider: Radha Velarde Consulting Providers: Dawson Esquivel; Keysha Torres Discharge Orders/Prescriptions Prescriptions: New aspirin 81 mg Tablet,Delayed Release (Dr/Ec) 81 mg PO BREAKFAST 90 Days Qty: 90 0RF Brilinta 90 mg Tablet 90 mg PO BID 90 Days Qty: 180 0RF levofloxacin 750 mg tablet 750 mg PO DAILY Qty: 5 0RF Continued atorvastatin [Lipitor] 40 mg tablet 40 mg PO QHS famotidine [Pepcid] 40 mg tablet 40 mg PO QHS metformin 500 mg tablet extended release 24 hr 500 mg PO DAILY Patient Comments: TAKE 1 TABLET BY MOUTH EVERY DAY WITH BREAKFAST alprazolam 0.5 MG tablet 0.25 - 0.5 mg PO DAILY PRN (Reason: Anxiety) Patient Comments: ANXIETY hydrochlorothiazide 25 MG tablet 25 mg PO DAILY Patient Comments: [place] pantoprazole [Protonix] 40 mg tablet,delayed release (DR/EC) 40 mg PO DAILY Qty: 14 0RF carvedilol 12.5 mg tablet 12.5 mg PO BID escitalopram oxalate 10 mg tablet 20 mg PO DAILY Patient Comments: PLEASE SEE ATTACHED FOR DETAILED DIRECTIONS levothyroxine 137 mcg tablet 137 mcg PO DAILY Referrals / Follow Up: Radha Velarde MD [Primary Care Provider] - In 1 Week Dawson Esquivel MD [Med Staff - Active Staff] - Within 2 Weeks Disposition Disposition (needs filled in before D/C Order can be placed): Home, Self Care Charges/Coding Visit Charges Inpatient E&M: 37956 Disch Hosp >30min
[2023-12-29 11:00] VITALS: BP 159/64; PULSE 77; RESP 18; TEMP 36.9; O2SAT 96
[2023-12-29 11:51] LABS: Bedside Glucose 291 mg/dL (74-106)
--- NOTE | 2023-12-29 13:41 | SP.MBSS_ITS ---
Modified Barium Swallow Patient Information Study Date: 12/29/23 Study Time: 12:15 Direct Billable Minutes: 120 Total Minutes procedure & reportin Diagnosis: GERD K21.9 Referring Physician: Paolo Melara Reason for Referral: Objectively assess swallow function, assess risk for aspiration, and determine recommendations for least restrictive diet textures and compensatory strategies to improve safety of swallow. Medical History: Pt presented to [facility] ED 12/27/23 w/ history of ongoing dyspnea and chest discomfort persistent for the last 3 to 4 weeks with outpatient PCP evaluation with EKG demonstrating a left bundle branch block. Chest discomfort was more prominent w/ exertion with occasional palpitations prompting eventual ED evaluation. Chest CTA Impression: CTA chest examination, without a demonstrated pulmonary embolism or arterial dissection. Right lower lobe pneumonia. Pt admitted for management of LBBB, elevated troponin, chest pain w/ additional findings of RLL PNA. Pt referred for ST consult due to concern for aspiration PNA. Pt reports swallowing difficulty for >2 years, which has worsened in the past 6months. Pt's swallowing difficulty is characterized by difficulty getting foods to clear, odynophagia (7-9/10) in base of throat/chest level when foods don't clear, coughing w/ food and drink. She has also vomited food content 1X/month the past 3 months. BSE 12/29/2023 revealed SOB and wheezing immediately following ~4 sips of water and 2 bites of applesauce. FIRESTOPPER TECHNICIAN recommended NPO w/ plans for MBSS to further assess aspiration risk and determine recommendations for LRD textures. Ok for sips/chips and medications. PMH: Anxiety, Depression, Former smoker, HTN, HLD, Lupus, H/O Sjogren's disease, Obesity, Diabetes, Fibromyalgia, HTN, History of breast cancer, Hx of DVT, GERD, ROSEANNE. Current Diet Ordered: Regular textures / Thin liquids Dentition: Natural Teeth Mental Status: WNL Respiratory Status: Oxygenating on 3L/M nasal cannula Penetration-Aspiration Scale Penetration-Aspiration Scale: OBJECTIVE ASSESSMENT OF SWALLOW FUNCTION (QUANTITATIVE ? PER TRIAL): PENETRATION / ASPIRATION SCALE (MACIAS): 1 = does not enter airway 2 = enters airway/above vocal folds/ejected 3 = enters airway/above vocal folds/not ejected 4 = enters airway/contacts vocal folds/ejected 5 = enters airway/contacts vocal folds/not ejected 6 = enters airway/below vocal folds/ejected 7 = enters airway/below vocal folds/not ejected despite effort 8 = enters airway/below vocal folds/no effort VIDEOFLOROSCOPIC SCALE SCORE (MACIAS): Grade I = aspiration of material that has penetrated into the laryngeal vestibule, intact cough reflex Grade II = aspiration < 10 % of the bolus, intact cough reflex Grade III = aspiration of < 10 % of the bolus, reduced cough reflex or aspiration of > 10 % of the bolus, intact cough reflex Grade IV = aspiration of > 10 % of the bolus, reduced cough reflex Penetration-Aspiration Scale Score Thin Liquid via teaspoon: Result: 1= does not enter airway Thin Liquid via teaspoon Trial 2: Result: 1= does not enter airway Thin Liquid via small single sip: cup: Result: 1= does not enter airway Thin Liquid via sequential sips: cup: Result: 2= enter airway/above vocal folds/ejected Comment: Esophageal screen - Small collection of retention in the lower esophagus. [place] Thick Liquid via small single sip: cup: Result: 1= does not enter airway Pudding via teaspoon: Result: 1= does not enter airway Comment: Esophageal screen - Retention throughout the middle and lower esophagus w/ retrograde flow remaining below the UES. Thin Liquid via single sip: straw: Result: 2= enter airway/above vocal folds/ejected Comment: Esophageal screen - Thin barium mostly cleared esophageal retention of previous trial. 1/2 Cookie: Result: 1= does not enter airway Comment: Esophageal screen - small collection of barium contrast in middle-lower esophagus. Barium tablet with water: Result: 1= does not enter airway (Pill became caught in vallecula but cleared w/ additional water and swallow) Comment: Esophageal screen - Complete clearance. Barium tablet with pudding, followed by liquid wash w/ water: Result: 1= does not enter airway (Cleared the pharynx w/o retention) Comment: Esophageal screen - Retention in the mid esophagus w/ pudding, liquid wash effectively cleared the pill and pudding. Oral Phase Labial Seal: No Labial Escape Tongue Control During Bolus Hold: Posterior escape of greater than half of bolus Bolus Preparation/Mastication: Timely and efficient chewing and mashing Bolus Transport/Lingual Motion: Delayed initiation of tongue motion Oral Residue: Residue collection on oral structures (piecemeal deglutition w/ cookie) Pharyngeal Phase Initiation of Pharyngeal Swallow: Bolus head in pyriforms Soft Palate Elevation: No bolus between soft palate and pharyngeal wall Laryngeal Elevation: Partial superior movement thyroid cart/partial apprx aryt- epig petiole Anterior Hyoid Excursion: Partial anterior movement Epiglottic Movement: Complete inversion Laryngeal Vestibule Closure at Height of Swallow: Complete; no air/contrast in laryngeal vestibule Pharyngeal Stripping Wave: Present - complete Pharyngoesophageal Segment Opening: Parital distension and partial duration; parital obstruction of flow (trace barium in UES) Tongue Base Retraction: Narrow column of contrast between tongue base & post. pharyngeal wall Pharyngeal Residue: Collection of residue within or on pharyngeal structures Esophageal Phase Esophageal Clearance: Esophageal retention w/ retrograde flow below pharyngoesophageal seg. Treatment Strategies Effects of treatment strategies attemped:: Liquid wash = effective. Diagnosis/Impression Diagnosis: Esophageal dysphagia R13.14 Impression: The oral phase is primarily marked by... -Decreased bolus control w/ premature posterior loss of >1/2 of thin liquid boluses to the pyriforms prior to swallow onset. -Delayed tongue motion for A-P transport. -Complete mastication. Piecemeal deglutition of cookie. The pharyngeal phase is primarily marked by... -Delayed swallow onset. -Laryngeal penetration of sequential thin and thin by straw, which fully ejected after the swallow. No aspiration was observed. -Trace-mild pharyngeal residue due to mildly decreased tongue base retraction. The esophageal phase is primarily marked by... -Small CP bar at the level of C4-C5, which did not appear to impact bolus clearance through the UES. -Esophageal retention of pudding and barium pill in pudding, which mostly cleared w/ thin liquid washes. Retrograde flow of pudding retention remained below the UES. Recommendations Diet: Regular Textures and Thin Liquids Comment: STOP eating/drinking if increased s/s of reflux, sensation of retention, or regurgitation and resume at a later time. Medications whole w/ water. Compensatory Strategies: Small Bites, Small Sips, Slow Rate (Bites/sips 1 at a time), Alternate bites/solids and sips/liquids (1:1 ratio) and Sitting upright (During and 60min after oral intake) Recommend Repeat Modified Barium Swallow: No Need for Skilled Speech Therapy Services: Yes Comment: -Train the patient in use of strategies to decrease risk for aspiration and reflux aspiration. -Ongoing assessment of diet tolerance of recommended textures. -Train the patient in oropharyngeal exercise program to improve bolus control, swallow onset, and tongue base retraction (Lingual resistance, Kelsi, Irina, Effortful). Recommended Referrals: GI Consult (OP GI consult due to esophageal retention) Education Completed: 1. Described result of evaluation., 2. Pt understands evaluation & agrees with goals and treatment plan. and 4. Family/caregivers understand evaluation & agree w/ goals & tx plan. Status Active ST Patient: Active Contact Information [facility] Speech Therapy:: Liliane Urbina M.A. CCC-FIRESTOPPER TECHNICIAN? Speech-Language Pathologist?? [facility] [address] [place] [address]? [email or web address]?? [phone]
[2023-12-29 14:00] VITALS: O2SAT 93; O2SAT 95
--- NOTE | 2023-12-29 14:31 | CHAPLAIN ---
Type of Pastoral Visit _x__ Initial Visit ___ Follow-up Visit ___ On-call Visit ___ General Patient Visit ___ Spiritual Assessment ___ Family Conference ___ Bereavement ___ Rapid Response ___ Code Blue ___ Other (describe below) Pastoral Care Referral From _x__ Patient ___ Family ___ Nurse ___ Physician ___ Facialist ___ Cocoa Milling Machine Operator ___ Other (describe below) Sacrament/Intervention _x__ Active listening ___ Anointing ___ Restorationism ___ Bereavement ___ Communion ___ Carmela exploration ___ _x__ Life review _x__ Prayer ___ Reconciliation ___ Sacrament of Sick _x__ Supportive presence ___ Wedding ___ Other (describe below) Pastoral Comments patient, spouse, and daughter are in the room; pt gives details about her visit, her heart cath, and lack of breathing as normal; pt gives lots of life and family review which develops the conversation; pt is not active in a sabianism at this time but welcomes a prayer;
--- NOTE | 2023-12-29 15:09 | PHA.DC_ITS ---
Pharmacy [facility] Pharmacy Service has performed discharge medication reconciliation and counseling for this patient. 1. ASPIRIN 81MG PO DAILY 2. TICAGRELOR 90MG PO BID 3. LEVOFLOXACIN 750MG PO DAILY X 5 DAYS The patient's discharge medication list was reviewed for discrepancies and discrepancies were resolved. The patient was counseled on the following discharge medications and changes in medications for homegoing were reviewed. The Reason for Use, instructions for use, and potential side effects were reviewed for all new medications. The patient's questions regarding all of their medications were answered. The patient was able to verbally demonstrate an understanding of their discharge medications. Medications at Discharge Home Medications alprazolam 0.5 mg tablet 0.25 - 0.5 mg PO DAILY PRN Anxiety 01/03/15 hydrochlorothiazide 25 mg tablet 25 mg PO DAILY HTN 01/03/15 atorvastatin 40 mg tablet (Lipitor) 40 mg PO QHS 06/10/17 famotidine 40 mg tablet (Pepcid) 40 mg PO QHS REFLUX 06/10/17 metformin 500 mg tablet,extended release 24 hr 500 mg PO DAILY 11/06/20 pantoprazole 40 mg tablet,delayed release (Protonix) 40 mg PO DAILY #14 tabs 11/21/23 carvedilol 12.5 mg tablet 12.5 mg PO BID 12/27/23 escitalopram oxalate 10 mg tablet 20 mg PO DAILY 12/27/23 levothyroxine 137 mcg tablet 137 mcg PO DAILY 12/27/23 aspirin 81 mg tablet,delayed release 81 mg PO BREAKFAST 90 days #90 tabs 12/29/23 levofloxacin 750 mg tablet 750 mg PO DAILY #5 tabs 12/29/23 ticagrelor 90 mg tablet (Brilinta) 90 mg PO BID 90 days #180 tabs 12/29/23
--- NOTE | 2023-12-29 16:23 | CASEMGMT ---
Patient has order for discharge. Patient discharging on Brilinta, copay is $25 at [facility]. NATASHA LYLE updated by ST that patient will need outpatient ST at discharge, script received. Per assessment, patient requesting glucometer at discharge, script received. Patient does not qualify for home oxygen at discharge. NATASHA LYLE in to discuss needs at discharge, family at bedside. Updated regarding recommendations for outpatient ST, patient states would like to think about it but was ok with referral being sent to [facility] with requests to call patient to schedule. NATASHA LYLE updated patient regarding glucometer script and informed that it was attached to discharge instructions. Patient denied further needs or help at discharge. Patient had no further questions or concerns.
[2023-12-29 17:11] VITALS: BP 148/59; PULSE 81; RESP 18; TEMP 36.7; O2SAT 94
--- NOTE | 2024-01-02 13:36 | CL.I_ITS ---
Patient Name: IRLANDA LANDA Study Date: 12/28/2023 Performing: Katherin Solis MD Ht: 64 inches 162.56 cm : 1945 Wt: 238.9 lbs 108.2 kg Age: 78 Gender: female BSA: 2.11 PROCEDURE(S) PERFORMED IC12-(05332/C9600)VANESSA W/WO PTCA, SINGLE CORONARY ARTERY CLINICAL PROFILE AND CO-MORBIDITIES Indications: Suspected CAD Heart Failure: None Stress/Imaging Stress/Image Study Performed: No CAD Presentations: Other: SOB CONCLUSIONS Successful VANESSA to mRCA RECOMMENDATIONS DESCRIPTION OF PROCEDURE The patient arrived to the procedure lab. The risks and benefits of the procedure as well as a full description of our services here and current unavailability of surgical backup were fully explained to the patient and/or their significant other prior to the catheterization. The Timeout was completed, verifying the correct patient and procedure. The patient's procedural site was prepped and draped in the usual fashion. Local anesthetic was given subcutaneously to right radial region with Lidocaine 2% Using a modified Seldinger technique,arterial access was obtained via the right radial artery, a 6Fr sheath was inserted. Right Coronary Artery selective angiography was then performed in multiple views using a 5 Fr. 4.0 [place] catheter. Left Coronary Artery selective angiography was performed in multiple views using a 5 Fr. 4.0 [place] catheter. Left Ventriculography was performed in CONTRERAS projection using a 5 Fr. Pigtail catheter. LV to AO pullback pressures were then recorded. Left Coronary Artery selective angiography was performed in multiple views using a 5 Fr. JL3.5 catheter.The images were reviewed and options discussed. A decision was then made to proceed with an Intervention, IVUS or other adjunct procedure. JR 4 Guide catheter was inserted and engaged into the RCA. {L1} Angiogram performed pre balloon dilatation. BMW 0.014 Guide wire was advanced to the RCA. EMERGE 3.0 X 15 Balloon catheter was inserted. Balloon catheter was advanced across lesion in the right coronary, mid. PTCA balloon inflated at 8 atms for 16 secs. Balloon catheter was repositioned to additional lesion in the right coronary, mid. PTCA balloon inflated at 12 atms for 12 secs. Angiogram performed post balloon dilatation. FAUSTINO FRONTIER 3.5 X 30 Drug Eluting stent was inserted. Drug Eluting stent was advanced across the lesion in the right coronary, mid. Angiogram performed pre stent deployment. Angiogram performed post stent deployment. The arterial sheath was pulled and a TR Band was applied for hemostasis 18 ML OF AIR INTERVENTION INFORMATION LESION SITE: RCA (Mid) Lesion Complexity: High/C, chronic total occlusion: No, lesion at bifurcation: Yes, thrombus present: No, lesion length: 28 mm, culprit lesion: Yes, Previously treated lesion: No Pre Stenosis: 80 % Pre intervention BRITNEY flow: 3 PROCEDURE: Drug Eluting Stent with pre dilatation. Post Stenosis: 0 % Post intervention BRITNEY flow: 3 Lesion Devices: San .014 190cm BMW [place] Straight Cordis 6 Fr JR4 100cm Guide Catheter Aleksander Sci EMERGE MR 3.00x15 BALLOON Medtronic 3.5 x 30 FAUSTINO FRONTIER VANESSA COMPLICATIONS No Complications PROCEDURE MEDICATIONS Versed 1 mg IV Fentanyl 50 mcg IV Oxygen: 2 L/min via nasal cannula Brilinta 180 mg PO @ 12/28/2023 12:48:16 Heparin given IA 12/28/2023 12:25:33 Heparin 5000 unit(s) IV 12/28/2023 12:49:50 Verapamil 2.5mg, Ntg 100mcgs, 3000 units of Heparin given IA 12/28/2023 12:25:33 SUMMARY OF HEMODYNAMIC DATA Time AIR REST ECG 12:13:34 AO 125/48 (78) SA 12:29:39 AO 121/55 (85) 12:32:59 LV 140/-14, -1 12:39:57 LV 142/-14, 0 12:40:03 LV 144/-15, 2 12:40:29 LV 142/-13, 2 12:40:36 LVp 140/-13, 3 12:40:39 AOp 144/41 (84) 12:40:44 AO 161/71 (106) 12:51:31 AIR REST 13:01:42 AIR REST AO 183/82 (121) 13:01:45 AO 169/82 (119) 13:07:02 Signed By Katherin Solis MD On 01/02/2024 13:35:38 Katherin Solis MD
== END 2023-12-29 17:19 | disposition home or self-care (01) | DRG 321 ==
LOC: ED 20:04 → PCU 21:01
PROVIDERS: Admitting Provider Family Medicine; Emergency Provider Emergency Medicine; PCP Internal Medicine; Visit Provider Internal Medicine
DX: I21.4 Non-ST elevation (NSTEMI) myocardial infarction (principal); J15.4 Pneumonia due to other streptococci; Z68.41 Body mass index [BMI] 40.0-44.9, adult; I42.9 Cardiomyopathy, unspecified; Z51.5 Encounter for palliative care; Z66 Do not resuscitate; E11.9 Type 2 diabetes mellitus without complications; M32.9 Systemic lupus erythematosus, unspecified; E03.9 Hypothyroidism, unspecified; I10 Essential (primary) hypertension; F32.A Depression, unspecified; E66.01 Morbid (severe) obesity due to excess calories; G47.33 Obstructive sleep apnea (adult) (pediatric); I44.7 Left bundle-branch block, unspecified; K21.9 Gastro-esophageal reflux disease without esophagitis; E78.5 Hyperlipidemia, unspecified; F41.9 Anxiety disorder, unspecified; M79.7 Fibromyalgia; I24.89 Other forms of acute ischemic heart disease; Z92.3 Personal history of irradiation; Z79.84 Long term (current) use of oral hypoglycemic drugs; Z85.3 Personal history of malignant neoplasm of breast; R79.89 Other specified abnormal findings of blood chemistry; Z79.2 Long term (current) use of antibiotics; E66.813 Obesity, class 3; Z86.73 Personal history of transient ischemic attack (TIA), and cerebral infarction without residual deficits
CPT/HCPCS: 36415; 71046; 71275; 74230; 80048; 80053; 80061; 82962; 83735; 83880; 84100; 84145; 84484; 85025; 85379; 87449; 87633; 92610; 92611; 92928; 93005; 93306; 93458; 99152; 99153; 99285; Q9967; A4216; C1725; C1769; C1874; C1887; C1894; C9600; J1327